=== PATIENT | female | born 1960 | race Caucasian/White ===

== ENCOUNTER 2023-11-09 18:55 | Inpatient (IN) | payer OTHER ==
--- NOTE | 2023-11-09 19:06 | ED ---
General Adult HPI - General Source: patient, family, RN notes reviewed Mode of arrival: wheelchair Limitations: no limitations <Estevan Bruce - Last Filed: 11/09/23 19:04> - History of Present Illness -: days(s) Location: neck, chest Severity scale (1-10): 4 Quality: aching Consistency: constant Improves with: none Worsens with: none <Rodrigo Toscano - Last Filed: 11/16/23 20:39> - General Stated complaint: Needs echograph Time Seen by Provider: 11/09/23 19:04 - History of Present Illness Initial comments: Quick note: Patient is a 62-year-old female presented to ER with a chief complaint of "fluid around her heart". Patient sent by medical provider for IV Lasix and admission. (Estevan Bruce) This is a 62-year-old female scented to the emergency room today for evaluation of shortness of breath patient was sent in for evaluation regarding findings of CHF. (Rodrigo Tsocano) - Related Data Home Medications Medication Instructions Recorded Confirmed ALPRAZolam [Xanax] 1 mg PO TID 11/09/23 11/09/23 Albuterol Inhaler [Ventolin Hfa 2 puff INHALATION RT-QID PRN 11/09/23 11/09/23 Inhaler] Atorvastatin [Lipitor] 80 mg PO HS 11/09/23 11/09/23 Ergocalciferol (Vitamin D2) 1,250 mcg PO SA 11/09/23 11/09/23 [Drisdol (50,000 Iu)] Furosemide [Lasix] 40 mg PO BID 11/09/23 11/09/23 Montelukast [Singulair] 10 mg PO DAILY 11/09/23 11/09/23 Ondansetron [Zofran] 4 mg PO Q12HR PRN 11/09/23 11/09/23 Spironolactone-Hctz 25-25Mg 2 tab PO DAILY 11/09/23 11/09/23 [Aldactazide 25-25 MG] allopurinoL [Zyloprim] 100 mg PO DAILY 11/09/23 11/09/23 amLODIPine [Norvasc] 10 mg PO DAILY 11/09/23 11/09/23 rOPINIRole HCL [Requip] 0.25 mg PO HS 11/09/23 11/09/23 metFORMIN HCL [Glucophage] 500 mg PO DAILY 11/10/23 11/10/23 Previous Rx's Medication Instructions Recorded Budesonide-Formot 160-4.5 Mcg 2 puff INHALATION RT-BID 30 Days 11/16/23 [Symbicort 160-4.5 Mcg Inhaler] #1 dispenser Cephalexin [Keflex] 500 mg PO Q8HR #30 cap 11/16/23 Ipratropium-Albuterol Nebulize 3 ml INHALATION RT-QID 30 Days 11/16/23 [Duoneb 0.5 mg-3 mg/3 ml Soln] #120 each Metoprolol Succinate (ER) [Toprol 25 mg PO DAILY #30 tab 11/16/23 XL] predniSONE 30 mg PO DAILY #7 tab 11/16/23 Allergies Allergy/AdvReac Type Severity Reaction Status Date / Time LESLIE Inhibitors Allergy Unknown Verified 11/09/23 19:35 Review of Systems ROS Other: All systems not noted in ROS Statement are negative. <Estevan Bruce - Last Filed: 11/09/23 19:04> ROS Other: All systems not noted in ROS Statement are negative. <Rodrigo Toscano - Last Filed: 11/16/23 20:39> ROS Statement: Those systems with pertinent positive or pertinent negative responses have been documented in the HPI. General Exam <Estevan Bruce - Last Filed: 11/09/23 19:04> General appearance: alert, in no apparent distress Head exam: Present: atraumatic, normocephalic, normal inspection Eye exam: Present: normal appearance, PERRL, EOMI. Absent: scleral icterus, conjunctival injection, periorbital swelling ENT exam: Present: normal exam, mucous membranes moist Neck exam: Present: normal inspection. Absent: tenderness, meningismus, lymphadenopathy Respiratory exam: Present: normal lung sounds bilaterally. Absent: respiratory distress, wheezes, rales, rhonchi, stridor Cardiovascular Exam: Present: regular rate, normal rhythm, normal heart sounds. Absent: systolic murmur, diastolic murmur, rubs, gallop, clicks GI/Abdominal exam: Present: soft, normal bowel sounds. Absent: distended, tenderness, guarding, rebound, rigid Extremities exam: Present: normal inspection, full ROM, normal capillary refill. Absent: tenderness, pedal edema, joint swelling, calf tenderness Back exam: Present: normal inspection Neurological exam: Present: alert, oriented X3, CN II-XII intact Psychiatric exam: Present: normal affect, normal mood Skin exam: Present: warm, dry, intact, normal color. Absent: rash <Rodrigo Toscano - Last Filed: 11/16/23 20:39> - General Exam Comments Initial Comments: Visual Physical Exam Vital signs reviewed General: Well-appearing, nontoxic, no acute distress. Head: Normocephalic, atraumatic Eyes: PERRLA, EOMI ENT: Airway patent Chest: Nonlabored breathing Skin: No visual rash, normal skin tone Neuro: Alert and oriented 3 Musculoskeletal: No gross abnormalities (Estevan Bruce) Course <Rodrigo Toscano - Last Filed: 11/16/23 20:39> Vital Signs 11/09/23 11/09/23 11/09/23 19:31 21:56 22:51 Temperature 98.2 F Pulse Rate 88 89 83 Pulse Rate [ Pulse Oximetery ] Respiratory 18 20 20 Rate Blood Pressure 116/81 120/82 100/82 Blood Pressure [Supine] O2 Sat by Pulse 94 L 91 L 96 Oximetry 11/10/23 00:32 Temperature 98.0 F Pulse Rate Pulse Rate [ 79 Pulse Oximetery ] Respiratory 20 Rate Blood Pressure Blood Pressure 100/58 [Supine] O2 Sat by Pulse 90 L Oximetry - Reevaluation(s) Reevaluation #1: 11/09/23 20:50 Medical records reviewed (Rodrigo Toscano) Reevaluation #2: 11/09/23 20:50 Patient symptoms unchanged (Rodrigo Toscano) Reevaluation #3: 11/09/23 20:50 Patient informed of results and questions answered (Rodrigo Toscano) Reevaluation #4: Was pt. sent in by a medical professional or institution (, PA, PICTURE [employer]AMER, urgent care, hospital, or fpc...) When possible be specific @ -no Did you speak to anyone other than the patient for history (EMS, parent, family, police, friend...)? What history was obtained from this source @ -no Did you review nursing and triage notes (agree or disagree)? Why? @ -agree Are old charts reviewed (outside hosp., previous admission, EMS record, old EKG, old radiological studies, urgent care reports/EKG's, fpc records)? Report findings @ -yes Differential Diagnosis (chest pain, altered mental status, abdominal pain women, abdominal pain men, vaginal bleeding, weakness, fever, dyspnea, syncope, h eadache, dizziness, GI bleed, back pain, seizure, CVA, palpatations, mental health, musculoskeletal)? @ -prior EKG interpreted by me (3pts min.). @ -yes X-rays interpreted by me (1pt min.). @ -yes postive for CHF CT interpreted by me (1pt min.). @ -no U/S interpreted by me (1pt. min.). @ -no What testing was considered but not performed or refused? (CT, X-rays, U/S, labs)? Why? @ -none What meds were considered but not given or refused? Why? @ -none Did you discuss the management of the patient with other professionals (professionals i.e. , PA, [employer], lab, RT, psych nurse, healthcare social worker, glue clamp operator, teacher, correctional officer lieutenant, supportive employment case manager)? Give summary @ -no Was smoking cessation discussed for >3mins.? @ -no Was critical care preformed (if so, how long)? @ -no Were there social determinants of health that impacted care today? How? (Homelessness, low income, unemployed, alcoholism, drug addiction, transportation, low edu. Level, literacy, decrease access to med. care, snf, rehab)? @ -none Was there de-escalation of care discussed even if they declined (Discuss DNR or withdrawal of care, Hospice)? DNR status @ -no What co-morbidities impacted this encounter? (DM, HTN, Smoking, COPD, CAD, Cancer, CVA, ARF, Chemo, Hep., AIDS, mental health diagnosis, sleep apnea, morbid obesity)? @ -none Was patient admitted / discharged? Hospital course, mention meds given and route, prescriptions, significant lab abnormalities, going to OR and other pertinent info. @ - 62 female to the ER for evaluation of significant CHF lower extremity edema. Patient having persistent shortness of breath here in the emergency department will admit for CHF, diuresis Admitted Undiagnosed new problem with uncertain prognosis? @ -no Drug Therapy requiring intensive monitoring for toxicity (Heparin, Nitro, Insulin, Cardizem)? @ -no Were any procedures done? @ -no Diagnosis/symptom? @ -CHF Acute, or Chronic, or Acute on Chronic? @ -Acute Uncomplicated (without systemic symptoms) or Complicated (systemic symptoms)? @ -Complicated Side effects of treatment? @ -no Exacerbation, Progression, or Severe Exacerbation? @ -exacerbation Poses a threat to life or bodily function? How? (Chest pain, USA, ND, pneumonia, PE, COPD, DKA, ARF, appy, cholecystitis, CVA, Diverticulitis, Homicidal, S uicidal, threat to staff... and all critical care pts) @ -yes w CHF (Rodrigo Toscano) Reevaluation #5: Differential Dyspnea: Coronary syndrome, arrhythmia, tamponade, asthma, COPD, pulmonary embolism, pneumonia, pneumothorax, pulmonary effusion, anaphylaxis, diabetic ketoacidosis, flailed chest, pulmonary contusion, diaphragmatic rupture, anemia, neuro muscular, this is not meant to be an all-inclusive list. (Rodrigo Toscano) - Consultations Consultation #1: Spoke with [facility] who agrees to admit this patient (Rodrigo Toscano) EKG Findings - EKG Comments: EKG Findings:: EKG is sinus 91 MS 167 QRS 118 QTc 429 - EKG Results: EKG: interpreted by ERMD <Rodrigo Toscano - Last Filed: 11/16/23 20:39> Medical Decision Making <Estevan Bruce - Last Filed: 11/09/23 19:04> - Lab Data Result diagrams: 11/14/23 07:38 11/14/23 07:38 - Radiology Data Radiology results: report reviewed (Chest x-ray positive for CHF), image reviewed <Rodrigo Toscano - Last Filed: 11/16/23 20:39> - Medical Decision Making I performed the quick note portion of this chart. Electronically signed by Estevan Bruce PA-C (Estevan Bruce) 62 female to the ER for evaluation of significant CHF lower extremity edema. Patient having persistent shortness of breath here in the emergency department will admit for CHF, diuresis (Rodrigo Toscano) - Lab Data Lab Results 11/09/23 11/09/23 11/09/23 Range/Units 19:54 19:54 19:54 WBC 7.1 (3.8-10.6) k/uL RBC 4.60 (3.80-5.40) m/uL Hgb 13.1 (11.4-16.0) gm/dL Hct 42.0 (34.0-46.0) % MCV 91.3 (80.0-100.0) fL MCH 28.5 (25.0-35.0) pg MCHC 31.2 (31.0-37.0) g/dL RDW 17.9 H (11.5-15.5) % Plt Count 214 (150-450) k/uL MPV 8.8 Hypochromasia Moderate Poikilocytosis Slight Anisocytosis Slight Sodium 138 (137-145) mmol/L Potassium 4.0 (3.5-5.1) mmol/L Chloride 97 L (98-107) mmol/L Carbon Dioxide 27 (22-30) mmol/L Anion Gap 14 mmol/L BUN 52 H (7-17) mg/dL Creatinine 2.01 H (0.52-1.04) mg/dL Est GFR (CKD-EPI)AfAm 30 (>60 ml/min/1.73 sqM) Est GFR (CKD-EPI)NonAf 26 (>60 ml/min/1.73 sqM) Glucose 98 (74-99) mg/dL Calcium 9.2 (8.4-10.2) mg/dL Total Bilirubin 2.2 H (0.2-1.3) mg/dL AST 41 H (14-36) U/L ALT 29 (4-34) U/L Alkaline Phosphatase 117 (38-126) U/L Troponin I <0.012 (0.000-0.034) ng/mL NT-Pro-B Natriuret Pep 78649 pg/mL Total Protein 7.6 (6.3-8.2) g/dL Albumin 4.0 (3.5-5.0) g/dL Disposition <Estevan Bruce - Last Filed: 11/09/23 19:04> Is patient prescribed a controlled substance at d/c from ED?: No Time of Disposition: 20:45 <Rodrigo Toscano - Last Filed: 11/16/23 20:39> Clinical Impression: CHF (congestive heart failure), Shortness of breath Disposition: ADMITTED IP TO THIS HOSP Condition: Fair
[2023-11-09 20:29] LABS: Anisocytosis Slight; HGB 13.1 gm/dL (11.4-16.0); Hypochromasia Moderate; MCH 28.5 pg (25.0-35.0); MCHC 31.2 g/dL (31.0-37.0); MCV 91.3 fL (80.0-100.0); Mean Platelet Volume 8.8; Platelet Count 214 k/uL (150-450); Poikilocytosis Slight; RDW 17.9 % (11.5-15.5); WBC 7.1 k/uL (3.8-10.6)
[2023-11-09 20:39] LABS: ALT 29 U/L (4-34); AST 41 U/L (14-36); African American GFR (CKD) 30 (>60 ml/min/1.73 sqM); Alkaline Phosphatase 117 U/L (38-126); Anion Gap 14 mmol/L; Blood Urea Nitrogen 52 mg/dL (7-17); Calcium 9.2 mg/dL (8.4-10.2); Carbon Dioxide 27 mmol/L (22-30); Chloride 97 mmol/L (98-107); Glucose 98 mg/dL (74-99); Non-African American GFR(CKD) 26 (>60 ml/min/1.73 sqM); Sodium 138 mmol/L (137-145); Total Bilirubin 2.2 mg/dL (0.2-1.3); Total Protein 7.6 g/dL (6.3-8.2)
[2023-11-09 20:47] LABS: NT-Pro-B-Type Natriuretic Pept 16000 pg/mL
--- NOTE | 2023-11-09 22:10 | XR ---
EXAMINATION: XR chest 1V portable DATE AND TIME: 11/09/2023 10:03 PM CLINICAL INDICATION: PHH; chf TECHNIQUE: AP upright portable COMPARISON: None FINDINGS/IMPRESSION: There is marked enlargement of the cardiac silhouette. There is partial silhouetting of the diaphragms with silhouetting of the bilateral lower lung zone pu lmonary vasculature by a fine reticular pattern of increased density with areas of coalescence, consi stent with interstitial/alveolar phase pulmonary edema. No pneumothorax or other abnormal gas collection. No acute skeletal or soft tissue findings.
[2023-11-09] MEDS: FUROSEMIDE 10 MG/ML 4 ML VIAL IV STA (22:50)
[2023-11-09] MEDS: FUROSEMIDE 10 MG/ML 4 ML VIAL IV SCH (23:52)
[2023-11-10] MEDS ORDERED: ONDANSETRON 4 MG TAB PO PRN (00:44)
[2023-11-10] MEDS ORDERED: ALBUTEROL NEBULIZED 2.5 MG/3 ML INHALATION PRN (00:44)
[2023-11-10] MEDS: ATORVASTATIN 80 MG TAB PO SCH (01:45)
[2023-11-10] MEDS: ALPRAZolam 1 MG TAB PO PRN (01:45)
[2023-11-10] MEDS: SPIRONOLACTONE-HCTZ 25-25MG 1 EACH TAB PO SCH (08:20)
[2023-11-10] MEDS: HEPARIN SODIUM,PORCINE 5,000 UNIT/ML 1 ML VIAL SQ SCH (08:21)
[2023-11-10] MEDS: MONTELUKAST 10 MG TAB PO SCH (08:21)
[2023-11-10] MEDS: amLODIPine 10 MG TAB PO SCH (08:21)
[2023-11-10] MEDS: allopurinoL 100 MG TAB PO SCH (08:21)
[2023-11-10] MEDS: FAMOTIDINE 20 MG/2 ML VIAL IV SCH (08:21)
[2023-11-10] MEDS: metFORMIN 500 MG TAB PO SCH (09:19)
--- NOTE | 2023-11-10 09:32 | P.CRDCN ---
History of Present Illness Consult date: 11/10/23 Consult reason: congestive heart failure History of present illness: History of present illness: This is a 62-year-old female with past medical history of hypertension, diabetes mellitus type 2, COPD, tobacco use and dependence. Patient complains of shortness of breath and swelling that been going on for the past 3 weeks. She thought she could treated herself with diuretics at home but the swelling did not seem to improve. She does have history of having oxygen at home but she states she recently sent it back. She does have a nebulizer which she is not using. She states that Dr. Roche sent her here for an echocardiogram. 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 Patient is status post IV Lasix 40 mg once and continued on 40 mg every 12 hours. EKG sinus rhythm Chest x-ray: Marked enlargement of the cardiac silhouette. Interstitial/alveolar phase pulmonary edema. WBC 7.1, hemoglobin 13.1, platelet count 214. BUN 52, creatinine 2.01. Troponin negative x 3. Total bilirubin 2.2, AST 41, ALT 29, alkaline phosphatase 117. proBNP 16,000. Sodium 138, potassium 4.0, chloride 97, CO2 27. Home cardiac medications: Amlodipine 10 mg daily, atorvastatin 80 mg at bedtime, Lasix 40 mg twice daily, spironolactone/hydrochlorothiazide 25-25 mg 2 tablets daily. Review Of Systems: At the time of my exam: CONSTITUTIONAL: Denies fever or chills. HEENT: Denies blurred vision, vision changes, or eye pain. Denies hemoptysis CARDIOVASCULAR: Denies chest pain. Denies orthopnea. Denies PND. Denies palpitations. + edema in abdomen and lower extremities RESPIRATORY: + shortness of breath. GASTROINTESTINAL: Denies abdominal pain. Denies nausea or vomiting. HEMATOLOGIC: Denies bleeding disorders. GENITOURINARY: Denies any blood in urine. SKIN: Denies pruitis. Denies rash. Physical examination: Gen: This is an obese 62-year-old in no acute distress VS: reviewed HEENT: Head is atraumatic, normocephalic. Pupils equal, round. Sclerae is anicteric. NECK: Supple. No JVD. LUNGS: Diffuse wheezing bilateral. No intercostal retractions. HEART: Regular rate and rhythm. No murmur. ABDOMEN: Soft positive ascites. EXTREMITIES: Bilateral lower extremity edema. No calf tenderness. NEUROLOGICAL: Patient is awake, alert and oriented x3. Assessment: Acute on chronic heart failure, unknown EF COPD exacerbation Ascites Hypertension Diabetes mellitus type 2 COPD Tobacco use and dependence Plan: Resume patient's home cardiac medications Continue IV Lasix 40 mg increase frequency to every 8 hours Monitor DEJA, daily weights, electrolytes and renal function Obtain 2-D echocardiogram and Doppler study to assess cardiac structure and function Add consult for pulmonary medicine for COPD exacerbation Further recommendations to follow based upon clinical course Thank you kindly for this consultation. Nurse practitioner note has been reviewed, I agree with documented findings and plan of care. Patient was seen and examined. Past Medical History Past Medical History: COPD, Diabetes Mellitus, Hypertension History of Any Multi-Drug Resistant Organisms: None Reported Past Surgical History: No Surgical Hx Reported Past Psychological History: No Psychological Hx Reported Smoking Status: Current every day smoker Past Alcohol Use History: None Reported Past Drug Use History: None Reported Medications and Allergies Home Medications Medication Instructions Recorded Confirmed Type ALPRAZolam [Xanax] 1 mg PO TID 11/09/23 11/09/23 History Albuterol Inhaler [Ventolin Hfa 2 puff INHALATION RT-QID PRN 11/09/23 11/09/23 History Inhaler] Atorvastatin [Lipitor] 80 mg PO HS 11/09/23 11/09/23 History Ergocalciferol (Vitamin D2) 1,250 mcg PO SA 11/09/23 11/09/23 History [Drisdol (50,000 Iu)] Furosemide [Lasix] 40 mg PO BID 11/09/23 11/09/23 History Montelukast [Singulair] 10 mg PO DAILY 11/09/23 11/09/23 History Ondansetron [Zofran] 4 mg PO Q12HR PRN 11/09/23 11/09/23 History Spironolactone-Hctz 25-25Mg 2 tab PO DAILY 11/09/23 11/09/23 History [Aldactazide 25-25 MG] allopurinoL [Zyloprim] 100 mg PO DAILY 11/09/23 11/09/23 History amLODIPine [Norvasc] 10 mg PO DAILY 11/09/23 11/09/23 History rOPINIRole HCL [Requip] 0.25 mg PO HS 11/09/23 11/09/23 History metFORMIN HCL [Glucophage] 500 mg PO DAILY 11/10/23 11/10/23 History Allergies Allergy/AdvReac Type Severity Reaction Status Date / Time LESLIE Inhibitors Allergy Unknown Verified 11/09/23 19:35 Physical Exam Vitals: Vital Signs Temp Pulse Pulse Resp BP BP Pulse Ox 11/10/23 01:47 97.7 F 89 21 105/73 94 L 11/10/23 00:32 98.0 F 79 20 100/58 90 L 11/09/23 22:51 83 20 100/82 96 11/09/23 21:56 89 20 120/82 91 L 11/09/23 19:31 98.2 F 88 18 116/81 94 L Intake and Output 11/09/23 11/10/23 11/10/23 22:59 06:59 14:59 Intake Total 480 Output Total 250 Balance 230 Intake: Oral 480 Output: Urine 250 Other: Weight 86.183 kg 86.2 kg Results 11/09/23 19:54 11/09/23 19:54 Cardiac Enzymes 11/09/23 11/09/23 11/09/23 Range/Units 19:54 19:54 23:56 AST 41 H (14-36) U/L Troponin I <0.012 <0.012 (0.000-0.034) ng/mL 11/10/23 Range/Units 02:49 AST (14-36) U/L Troponin I <0.012 (0.000-0.034) ng/mL CBC 11/09/23 Range/Units 19:54 WBC 7.1 (3.8-10.6) k/uL RBC 4.60 (3.80-5.40) m/uL Hgb 13.1 (11.4-16.0) gm/dL Hct 42.0 (34.0-46.0) % Plt Count 214 (150-450) k/uL Comprehensive Metabolic Panel 11/09/23 Range/Units 19:54 Sodium 138 (137-145) mmol/L Potassium 4.0 (3.5-5.1) mmol/L Chloride 97 L (98-107) mmol/L Carbon Dioxide 27 (22-30) mmol/L BUN 52 H (7-17) mg/dL Creatinine 2.01 H (0.52-1.04) mg/dL Glucose 98 (74-99) mg/dL Calcium 9.2 (8.4-10.2) mg/dL AST 41 H (14-36) U/L ALT 29 (4-34) U/L Alkaline Phosphatase 117 (38-126) U/L Total Protein 7.6 (6.3-8.2) g/dL Albumin 4.0 (3.5-5.0) g/dL Current Medications Generic Name Dose Route Start Last Admin Trade Name Freq PRN Reason Stop Dose Admin Albuterol Sulfate 2.5 mg 11/10/23 00:44 Albuterol Nebulized 2.5 Mg/3 Ml INHALATION RT-QID PRN Shortness Of Breath Allopurinol 100 mg 11/10/23 09:00 Allopurinol 100 Mg Tab PO DAILY [facility]PILLO Alprazolam 1 mg 11/10/23 00:44 11/10/23 01:45 Alprazolam 1 Mg Tab PO 1 mg Q6H PRN Administration Anxiety Amlodipine Besylate 10 mg 11/10/23 09:00 Amlodipine 10 Mg Tab PO DAILY [facility] Atorvastatin Calcium 80 mg 11/10/23 01:00 11/10/23 01:45 Atorvastatin 80 Mg Tab PO 80 mg HS [facility] Administration Ergocalciferol 1,250 mcg 11/11/23 09:00 Ergocalciferol 1,250 Mcg (50,000 Iu) Capsule PO SA [facility] Furosemide 40 mg 11/09/23 21:00 11/09/23 23:52 Furosemide 10 Mg/Ml 4 Ml Vial IV Not Given Q12H [facility] HCTZ/Spironolactone 2 each 11/10/23 09:00 Spironolactone-Hctz 25-25mg 1 Each Tab PO DAILY [facility] Montelukast Sodium 10 mg 11/10/23 09:00 Montelukast 10 Mg Tab PO DAILY [facility] Non-Formulary Medication 1 dose 11/10/23 09:00 Metformin (Unknown Strength) PO DAILY [facility] Ondansetron HCl 4 mg 11/10/23 00:44 Ondansetron 4 Mg Tab PO Q12HR PRN Nausea Ropinirole HCl 0.25 mg 11/10/23 01:00 11/10/23 01:45 Ropinirole Hcl 0.25 Mg Tab PO 0.25 mg HS [facility] Administration Intake and Output 11/09/23 11/10/23 11/10/23 22:59 06:59 14:59 Intake Total 480 Output Total 250 Balance 230 Intake: Oral 480 Output: Urine 250 Other: Weight 86.183 kg 86.2 kg 11/09/23 19:54 11/09/23 19:54
[2023-11-10] MEDS ORDERED: DEXTROSE 50% SYRINGE 50 ML IVP PRN ×2 (09:38)
[2023-11-10 11:45] LABS: Glucose,Whole Blood 120 mg/dL (70-110)
[2023-11-10] MEDS: INSULIN ASPART (NovoLOG) 100 UNIT/ML VIAL SQ SCH (11:46)
--- NOTE | 2023-11-10 14:14 | P.HPIM ---
History of Present Illness H&P Date: 11/10/23 This is a pleasant 62-year-old female medical history significant for COPD, diabetes mellitus, hypertension. Patient is a daily smoker states that she quit about 5 days ago. Patient comes into the hospital after 3-week complaint of lower extremity edema she was seen by her PCP Dr. Roche who sent her into the hospital for further testing and evaluation. Patient has been using diuretics at home without improvement in her symptoms. She is denying shortness of breath, denying chest pain. Patient was noted to be hypoxic on admission with an oxygenation of 91%. She was started on nasal cannula patient does state that she has worn oxygen in the past due to her COPD however she has not been using it because she wanted to continue smoking. Patient had a chest x-ray done on admission showing no acute skeletal or soft tissue findings. There is concern for pulmonary edema. Her troponin level was negative x 3 however her proBNP was elevated at 16,000. Creatinine is also elevated at 2.01 with no other lab work available for comparison. Patient had an echocardiogram done yesterday November 08 ordered by her PCP showing severe LV systolic dysfunction with diffuse global hypokinesis EF is noted to be 20%. There is moderate mitral vegetation and moderate tricuspid regurgitation. She also had an abdominal pelvis CT done for abdominal distention revealing prominent anasarca. Patient has been started on IV Lasix, she is admitted to the hospital under medicine with a consult placed to cardiology. REVIEW OF SYSTEMS: CONSTITUTIONAL: No fever, no malaise, no fatigue. HEENT: No recent visual problems or hearing problems. Denied any sore throat. CARDIOVASCULAR: No chest pain, orthopnea, PND, no palpitations, no syncope. PULMONARY: No shortness of breath, no cough, no hemoptysis. GASTROINTESTINAL: No diarrhea, no nausea, no vomiting, no abdominal pain. NEUROLOGICAL: No headaches, no weakness, no numbness. HEMATOLOGICAL: Denies any bleeding or petechiae. GENITOURINARY: Denies any burning micturition, frequency, or urgency. MUSCULOSKELETAL/RHEUMATOLOGICAL: Denies any joint pain, swelling, or any muscle pain. Reports leg swelling and difficulty with ambulation. ENDOCRINE: Denies any polyuria or polydipsia. The rest of the 14-point review of systems is negative. PHYSICAL EXAMINATION: GENERAL: The patient is alert and oriented x3, not in any acute distress. Well developed, well nourished. HEENT: Pupils are round and equally reacting to light. EOMI. No scleral icterus. No conjunctival pallor. Normocephalic, atraumatic. No pharyngeal erythema. No thyromegaly. CARDIOVASCULAR: S1 and S2 present. No murmurs, rubs, or gallops. PULMONARY: Chest is clear to auscultation, no wheezing or crackles. ABDOMEN: Soft, nontender, nondistended, normoactive bowel sounds. No palpable organomegaly. MUSCULOSKELETAL: No joint swelling or deformity. EXTREMITIES: No cyanosis, clubbing. Patient has pitting lower extremity edema. NEUROLOGICAL: Gross neurological examination did not reveal any focal deficits. SKIN: No rashes. Assessment and plan Acute systolic heart failure patient has been started on IV Lasix increased to every 8 hours recommend strict intake and output monitoring and daily weights Acute hypoxic respiratory failure secondary to above continue on oxygen support nasal cannula at 4 L and titrate as tolerated Acute kidney injury possibly cardiorenal syndrome will repeat labs in the morning. History of COPD with no acute exacerbation Abdominal ascites secondary to vascular congestion History of diabetes mellitus controlled patient is currently on sliding scale insulin with Accu-Cheks ACH S Chronic nicotine use GI prophylaxis DVT prophylaxis Patient will be evaluated by cardiology and pulmonary continue on IV Lasix with strict intake and output monitoring. She will be started on DuoNebs scheduled and as needed. Repeat BMP in the a.m. The impression and plan of care has been dictated by Ginger Lawrence Nurse Practitioner as directed. Dr. Uma MD I have performed a history and physical examination and medical decision making of this patient, discussed the same with the dictator, and agree with the dictators assessment and plan as written, documented as a scribe. Based on total visit time, I have performed more than 50% of this visit. Past Medical History Past Medical History: COPD, Diabetes Mellitus, Hypertension History of Any Multi-Drug Resistant Organisms: None Reported Past Surgical History: No Surgical Hx Reported Past Psychological History: No Psychological Hx Reported Smoking Status: Current every day smoker Past Alcohol Use History: None Reported Past Drug Use History: None Reported Medications and Allergies Home Medications Medication Instructions Recorded Confirmed Type ALPRAZolam [Xanax] 1 mg PO TID 11/09/23 11/09/23 History Albuterol Inhaler [Ventolin Hfa 2 puff INHALATION RT-QID PRN 11/09/23 11/09/23 History Inhaler] Atorvastatin [Lipitor] 80 mg PO HS 11/09/23 11/09/23 History Ergocalciferol (Vitamin D2) 1,250 mcg PO SA 11/09/23 11/09/23 History [Drisdol (50,000 Iu)] Furosemide [Lasix] 40 mg PO BID 11/09/23 11/09/23 History Montelukast [Singulair] 10 mg PO DAILY 11/09/23 11/09/23 History Ondansetron [Zofran] 4 mg PO Q12HR PRN 11/09/23 11/09/23 History Spironolactone-Hctz 25-25Mg 2 tab PO DAILY 11/09/23 11/09/23 History [Aldactazide 25-25 MG] allopurinoL [Zyloprim] 100 mg PO DAILY 11/09/23 11/09/23 History amLODIPine [Norvasc] 10 mg PO DAILY 11/09/23 11/09/23 History rOPINIRole HCL [Requip] 0.25 mg PO HS 11/09/23 11/09/23 History metFORMIN HCL [Glucophage] 500 mg PO DAILY 11/10/23 11/10/23 History Allergies Allergy/AdvReac Type Severity Reaction Status Date / Time LESLIE Inhibitors Allergy Unknown Verified 11/09/23 19:35 Physical Exam Vitals: Vital Signs Temp Pulse Pulse Resp BP BP Pulse Ox 11/10/23 07:11 97.2 F L 87 21 113/72 91 L 11/10/23 01:47 97.7 F 89 21 105/73 94 L 11/10/23 00:32 98.0 F 79 20 100/58 90 L 11/09/23 22:51 83 20 100/82 96 11/09/23 21:56 89 20 120/82 91 L 11/09/23 19:31 98.2 F 88 18 116/81 94 L Intake and Output 11/09/23 11/10/23 11/10/23 22:59 06:59 14:59 Intake Total 480 Output Total 250 Balance 230 Intake: Oral 480 Output: Urine 250 Other: Weight 86.183 kg 86.2 kg Results CBC & Chem 7: 11/09/23 19:54 11/09/23 19:54 Labs: Abnormal Lab Results - Last 24 Hours (Table) 11/09/23 11/09/23 Range/Units 19:54 19:54 RDW 17.9 H (11.5-15.5) % Chloride 97 L (98-107) mmol/L BUN 52 H (7-17) mg/dL Creatinine 2.01 H (0.52-1.04) mg/dL Total Bilirubin 2.2 H (0.2-1.3) mg/dL AST 41 H (14-36) U/L Thrombosis Risk Factor Assmnt - Choose All That Apply Any of the Below Risk Factors Present?: Yes Each Risk Factor Represents 2 Points: Age 61-74 years Thrombosis Risk Factor Assessment Total Risk Factor Score: 2 Thrombosis Risk Factor Assessment Level: Low Risk Assessment and Plan Time with Patient: Less than 30
[2023-11-10 15:36] LABS: INR 1.1 (<1.2); Partial Thromboplastin Time 25.1 sec (22.0-30.0); Prothrombin Time 11.9 sec (10.0-12.5)
[2023-11-10 15:40] VITALS: BMI 35.9
[2023-11-10] MEDS: IPRATROPIUM-ALBUTEROL 3 ML NEB INHALATION SCH (15:51)
[2023-11-10] MEDS: FUROSEMIDE 10 MG/ML 4 ML VIAL IV SCH (15:54)
--- NOTE | 2023-11-10 15:55 | P.CNPUL ---
History of Present Illness Consult date: 11/10/23 Requesting physician: Jayjay Richards Reason for consult: dyspnea, COPD, hypoxemia Chief complaint: Shortness of breath History of present illness: This is a pleasant 62-year-old female patient with a 50+ year history of smoking, hypertension, hyperlipidemia, gout. She was recently found to have s everely impaired left ventricular systolic function with an ejection fraction of 20%. She had developed increasing lower extremity edema, increasing abdominal fullness over the past 2 weeks. She was directed here to the emergency room yesterday. CT scan of the abdomen pelvis revealed prominent anasarca. Is also noted right pleural effusion and passive right lung base atelectasis. Scant left pleural effusion. This x-ray reveals evidence of pulmonary edema. White count 7.1. Hemoglobin 13.1. Platelets 214. Sodium 138. Potassium 4.0. Bicarb 27. BUN 52. Creatinine 2.01. Troponins are negative x 3. proBNP 16,000. She is seen today in consultation on the selective care unit. She is currently awake and alert in no acute distress. She is dyspneic with conversation. Dyspneic with minimal exertion. Maintaining O2 saturation in the low 90s on 4 L/min per nasal cannula. Afebrile. Hemodynamically stable. Review of Systems REVIEW OF SYSTEMS: CONSTITUTIONAL: Positive for significant weight gain. EYES: Denies change in vision. EARS, NOSE, MOUTH, THROAT: Denies headaches, denies sore throat. CARDIOVASCULAR: Denies chest pain, palpitations or syncopal episodes. RESPIRATORY: Positive for shortness of breath, cough, congestion no hemoptysis. GASTROINTESTINAL: Positive for increased abdominal distention. GENITOURINARY: Denies hematuria, denies infections. MUSKULOSKELETAL: Positive for bilateral lower extremity swelling. INTEGUMENTARY: Denies rash, denies eczema. NEUROLOGICAL: Denies recent memory loss, no recent seizure activity. PSYCHIATRIC: Denies anxiety, denies depression. HEMATOLOGIC/LYMPHATIC: Denies anemia, denies enlarged lymph nodes. Past Medical History Past Medical History: COPD, Diabetes Mellitus, Hypertension History of Any Multi-Drug Resistant Organisms: None Reported Past Surgical History: No Surgical Hx Reported Past Psychological History: No Psychological Hx Reported Smoking Status: Current every day smoker Past Alcohol Use History: None Reported Past Drug Use History: None Reported Medications and Allergies Home Medications Medication Instructions Recorded Confirmed Type ALPRAZolam [Xanax] 1 mg PO TID 11/09/23 11/09/23 History Albuterol Inhaler [Ventolin Hfa 2 puff INHALATION RT-QID PRN 11/09/23 11/09/23 History Inhaler] Atorvastatin [Lipitor] 80 mg PO HS 11/09/23 11/09/23 History Ergocalciferol (Vitamin D2) 1,250 mcg PO SA 11/09/23 11/09/23 History [Drisdol (50,000 Iu)] Furosemide [Lasix] 40 mg PO BID 11/09/23 11/09/23 History Montelukast [Singulair] 10 mg PO DAILY 11/09/23 11/09/23 History Ondansetron [Zofran] 4 mg PO Q12HR PRN 11/09/23 11/09/23 History Spironolactone-Hctz 25-25Mg 2 tab PO DAILY 11/09/23 11/09/23 History [Aldactazide 25-25 MG] allopurinoL [Zyloprim] 100 mg PO DAILY 11/09/23 11/09/23 History amLODIPine [Norvasc] 10 mg PO DAILY 11/09/23 11/09/23 History rOPINIRole HCL [Requip] 0.25 mg PO HS 11/09/23 11/09/23 History metFORMIN HCL [Glucophage] 500 mg PO DAILY 11/10/23 11/10/23 History Allergies Allergy/AdvReac Type Severity Reaction Status Date / Time LESLIE Inhibitors Allergy Unknown Verified 11/09/23 19:35 Physical Exam Vitals: Vital Signs Temp Pulse Pulse Resp BP BP Pulse Ox 11/10/23 13:35 97.8 F 94 19 102/68 93 L 11/10/23 07:11 97.2 F L 87 21 113/72 91 L 11/10/23 01:47 97.7 F 89 21 105/73 94 L 11/10/23 00:32 98.0 F 79 20 100/58 90 L 11/09/23 22:51 83 20 100/82 96 11/09/23 21:56 89 20 120/82 91 L 11/09/23 19:31 98.2 F 88 18 116/81 94 L Intake and Output 11/10/23 11/10/23 11/10/23 06:59 14:59 22:59 Intake Total 480 118 Output Total 250 Balance 230 118 Intake: Oral 480 118 Output: Urine 250 Other: Voiding Method Toilet Incontinent Weight 86.2 kg 86.2 kg GENERAL EXAM: Alert, pleasant 62-year-old female, on 4 L nasal cannula, fairly comfortable in no apparent distress. HEAD: Normocephalic. EYES: Normal reaction of pupils, equal size. NOSE: Clear with pink turbinates. THROAT: Edentulous. No erythema or exudates. NECK: No masses, no JVD. CHEST: No chest wall deformity. LUNGS: Equal air entry with Eckels in the bilateral bases right greater than left, end expiratory wheeze, diminished. CVS: S1 and S2 normal with no audible murmur, regular rhythm. ABDOMEN: Positive fluid wave. No hepatosplenomegaly, normal bowel sounds, no guarding or rigidity. SPINE: No scoliosis or deformity SKIN: No rashes CENTRAL NERVOUS SYSTEM: No focal deficits, tone is normal in all 4 extremities. EXTREMITIES: There is 2+ peripheral edema. Changes of chronic venous stasis. No clubbing, no cyanosis. Peripheral pulses are intact. Results - Laboratory Findings CBC and BMP: 11/09/23 19:54 11/09/23 19:54 PT/INR, D-dimer PT 11.9 sec (10.0-12.5) 11/10/23 14:52 INR 1.1 (<1.2) 11/10/23 14:52 Abnormal lab findings: Abnormal Labs 11/09/23 11/09/23 11/10/23 19:54 19:54 11:43 RDW 17.9 H Chloride 97 L BUN 52 H Creatinine 2.01 H POC Glucose (mg/dL) 120 H Total Bilirubin 2.2 H AST 41 H - Diagnostic Findings Chest x-ray: image reviewed Assessment and Plan Assessment: Acute hypoxemic respiratory failure secondary to an acute exacerbation of systolic congestive heart failure in a patient found to have impaired left ventricular systolic function with ejection fraction of 20% Generalized anasarca Acute exacerbation of chronic obstructive pulmonary disease Chronic and ongoing tobacco dependence greater than 45 years Diabetes mellitus Hyperlipidemia History of gout Plan: The patient was seen and evaluated Echocardiogram, chest x-ray, labs and medications reviewed Initiated on Lasix 40 mg IV every 8 hours Initiate DuoNeb inhalations, Symbicort, Singulair, Solu Medrol Titrate the FiO2 as tolerated Educated regarding the importance of complete smoking cessation NicoDerm patch will be offered We will continue to follow and make further recommendations based on her clinical status I have personally seen and examined the patient, performed the documentation and the assessment and plan as written. Number of minutes spent on the visit: 20.
[2023-11-10 16:38] LABS: Glucose,Whole Blood 150 mg/dL (70-110)
[2023-11-10] MEDS: methylPREDNISolone SOD SUCCI 40 MG/ML 1 ML VIAL IV SCH (16:59)
[2023-11-10] MEDS: SYMBICORT 160-4.5 MCG INHALER INHALATION SCH (19:50)
[2023-11-10 20:12] LABS: Glucose,Whole Blood 144 mg/dL (70-110)
[2023-11-11 05:21] LABS: Glucose,Whole Blood 184 mg/dL (70-110)
[2023-11-11 08:27] LABS: African American GFR (CKD) 33 (>60 ml/min/1.73 sqM); Anion Gap 12 mmol/L; Blood Urea Nitrogen 48 mg/dL (7-17); Calcium 9.4 mg/dL (8.4-10.2); Carbon Dioxide 32 mmol/L (22-30); Chloride 96 mmol/L (98-107); Glucose 152 mg/dL (74-99); Non-African American GFR(CKD) 29 (>60 ml/min/1.73 sqM); Potassium 4.1 mmol/L (3.5-5.1); Sodium 140 mmol/L (137-145)
[2023-11-11] MEDS: FAMOTIDINE 20 MG TAB PO SCH (08:49)
[2023-11-11] MEDS: ERGOCALCIFEROL 1,250 MCG (50,000 IU) CAPSULE PO SCH (08:52)
[2023-11-11 11:28] LABS: Glucose,Whole Blood 184 mg/dL (70-110)
[2023-11-11] MEDS: CEPHALEXIN 500 MG CAP PO SCH ×2 (11:59→16:55)
--- NOTE | 2023-11-11 13:49 | P.PN ---
Subjective Progress Note Date: 11/11/23 Principal diagnosis: Acute hypoxic respiratory failure secondary to acute systolic congestive heart failure and acute exacerbation of COPD This is a pleasant 62-year-old female patient with a 50+ year history of smoking, hypertension, hyperlipidemia, gout. She was recently found to have severely impaired left ventricular systolic function with an ejection fraction of 20%. She had developed increasing lower extremity edema, increasing abdominal fullness over the past 2 weeks. She was directed here to the emergency room yesterday. CT scan of the abdomen pelvis revealed prominent anasarca. Is also noted right pleural effusion and passive right lung base atelectasis. Scant left pleural effusion. This x-ray reveals evidence of pulmonary edema. White count 7.1. Hemoglobin 13.1. Platelets 214. Sodium 138. Potassium 4.0. Bicarb 27. BUN 52. Creatinine 2.01. Troponins are negative x 3. proBNP 16,000. She is seen today in consultation on the selective care unit. She is currently awake and alert in no acute distress. She is dyspneic with conversation. Dyspneic with minimal exertion. Maintaining O2 saturation in the low 90s on 4 L/min per nasal cannula. Afebrile. Hemodynamically stable. Patient was reevaluated today on 11/11/2023, patient is feeling better, breathing a bit easier, less cough less wheezing less shortness of breath, nonetheless con tinues to have scattered rhonchi and wheezes on physical examination. Remains on 5 L nasal cannula, O2 sats 95% basic metabolic profile is normal today, BUN is 48 creatinine 1.82 improved compared to yesterday's creatinine of 2.01 Objective - Vital Signs Vital signs: Vital Signs Temp 98.2 F 11/11/23 11:37 Pulse 99 11/11/23 11:37 Resp 18 11/11/23 11:37 BP 128/89 11/11/23 11:37 Pulse Ox 95 11/11/23 11:37 FiO2 Intake & Output 11/10/23 11/11/23 11/11/23 18:59 06:59 18:59 Intake Total 228 118 Output Total 300 600 600 Balance -72 -604 -600 Weight 86.2 kg 99.6 kg Intake: Oral 228 118 Output: Urine 300 600 600 Other: Voiding Method Toilet Toilet Toilet Incontinent Incontinent Incontinent External Catheter External Catheter # Bowel Movements 1 - Exam GENERAL EXAM: Alert, pleasant 62-year-old female, remains on 5 L nasal cannula HEAD: Normocephalic. EYES: Normal reaction of pupils, equal size. NOSE: Clear with pink turbinates. THROAT: Edentulous. No erythema or exudates. NECK: No masses, no JVD. CHEST: No chest wall deformity. LUNGS: Scattered wheezing on forced expiratory maneuver noted bilaterally. CVS: S1 and S2 normal with no audible murmur, regular rhythm. ABDOMEN: Positive fluid wave. No hepatosplenomegaly, normal bowel sounds, no guarding or rigidity. SPINE: No scoliosis or deformity SKIN: No rashes CENTRAL NERVOUS SYSTEM: No focal deficits, tone is normal in all 4 extremities. EXTREMITIES: 2+ bipedal edema - Labs CBC & Chem 7: 11/09/23 19:54 11/11/23 07:39 Labs: Abnormal Lab Results - Last 24 Hours (Table) 11/10/23 11/10/23 11/10/23 Range/Units 14:52 16:36 20:11 Chloride (98-107) mmol/L Carbon Dioxide (22-30) mmol/L BUN (7-17) mg/dL Creatinine (0.52-1.04) mg/dL Glucose (74-99) mg/dL POC Glucose (mg/dL) 150 H 144 H (70-110) mg/dL Procalcitonin 0.20 H (0.02-0.09) ng/mL 11/11/23 11/11/23 11/11/23 Range/Units 05:20 07:39 11:27 Chloride 96 L (98-107) mmol/L Carbon Dioxide 32 H (22-30) mmol/L BUN 48 H (7-17) mg/dL Creatinine 1.82 H (0.52-1.04) mg/dL Glucose 152 H (74-99) mg/dL POC Glucose (mg/dL) 184 H 184 H (70-110) mg/dL Procalcitonin (0.02-0.09) ng/mL Assessment and Plan Assessment: Acute hypoxic respiratory failure Acute systolic congestive heart failure ejection fraction of 20% Acute exacerbation of COPD Anasarca Tobacco dependence syndrome, [id number] smoking history Type 2 diabetes History of gout Dyslipidemia Recommendation: Continue diuretics Continue bronchodilators Counseled regarding smoking cessation GI DVT prophylaxis Continue to monitor daily labs electrolytes and renal profile [place] chest x-ray in the next 24 hours Will continue to follow Time with Patient: Less than 30
--- NOTE | 2023-11-11 15:12 | P.PN ---
Subjective Progress Note Date: 11/11/23 This is a pleasant 62-year-old female medical history significant for COPD, diabetes mellitus, hypertension. Patient is a daily smoker states that she quit about 5 days ago. Patient comes into the hospital after 3-week complaint of lower extremity edema she was seen by her PCP Dr. Roche who sent her into the hospital for further testing and evaluation. Patient has been using diuretics at home without improvement in her symptoms. She is denying shortness of breath, denying chest pain. Patient was noted to be hypoxic on admission with an oxygenation of 91%. She was started on nasal cannula patient does state that she has worn oxygen in the past due to her COPD however she has not been using i t because she wanted to continue smoking. Patient had a chest x-ray done on admission showing no acute skeletal or soft tissue findings. There is concern for pulmonary edema. Her troponin level was negative x 3 however her proBNP was elevated at 16,000. Creatinine is also elevated at 2.01 with no other lab work available for comparison. Patient had an echocardiogram done yesterday November 08 ordered by her PCP showing severe LV systolic dysfunction with diffuse global hypokinesis EF is noted to be 20%. There is moderate mitral vegetation and moderate tricuspid regurgitation. She also had an abdominal pelvis CT done for abdominal distention revealing prominent anasarca. Patient has been started on IV Lasix, she is admitted to the hospital under medicine with a consult placed to cardiology. 11/11/2023 Patient is seen in follow-up on the medical floor. She continues on IV Lasix every 8 hours with a urine output of 1272 mL in the last 24 hours. Creatinine slowly improving and is down to 1.82 today. Blood glucose is elevated in the 180s. Hemoglobin A1c of 6.0. Maintained on nasal cannula oxygen support at 5 L with a saturation of 95% her lung sounds are clearing today and likely this can be weaned. Patient was noted to have features of cellulitis to the left lower extremity and has been started on oral Keflex. Lower extremities are edematous and weeping. Review of Systems Constitutional: Denied any fatigue denied any fever. Cardio vascular: denied any chest pain, palpitations Gastrointestinal: denied any nausea, vomiting, diarrhea Pulmonary: Denied any shortness of breath cough Neurologic denied any new focal deficits All inpatient medications were reviewed and appropriate changes in these medications as dictated in the interval history and assessment and plan. PHYSICAL EXAMINATION: GENERAL: The patient is alert and oriented x3, not in any acute distress. Well developed, well nourished. HEENT: Pupils are round and equally reacting to light. EOMI. No scleral icterus. No conjunctival pallor. Normocephalic, atraumatic. No pharyngeal erythema. No thyromegaly. CARDIOVASCULAR: S1 and S2 present. No murmurs, rubs, or gallops. PULMONARY: Bibasilar Crackles. ABDOMEN: Soft, nontender, nondistended, normoactive bowel sounds. No palpable organomegaly. MUSCULOSKELETAL: No joint swelling or deformity. EXTREMITIES: No cyanosis, clubbing. Patient has pitting lower extremity edema. NEUROLOGICAL: Gross neurological examination did not reveal any focal deficits. SKIN: No rashes. Assessment and plan Acute systolic heart failure patient has been started on IV Lasix increased to every 8 hours recommend strict intake and output monitoring and daily weights Acute hypoxic respiratory failure secondary to above continue on oxygen support nasal cannula at 4 L and titrate as tolerated Acute kidney injury possibly cardiorenal syndrome; Creatinine improving Left lower extremity cellulitis, patient has been started on oral keflex would recommend wrapping LE in Kerlex and Wang bandages bilaterally. History of COPD with no acute exacerbation Abdominal ascites secondary to vascular congestion History of diabetes mellitus controlled patient is currently on sliding scale insulin with Accu-Cheks ACH S Chronic nicotine use GI prophylaxis DVT prophylaxis Patient will be evaluated by cardiology and pulmonary continue on IV Lasix with strict intake and output monitoring. She will be started on DuoNebs scheduled and as needed. Repeat BMP in the a.m. The impression and plan of care has been dictated by Ginger Lawrence, Nurse Practitioner as directed. Dr. Uma MD I have performed a history and physical examination and medical decision making of this patient, discussed the same with the dictator, and agree with the dictators assessment and plan as written, documented as a scribe. Based on total visit time, I have performed more than 50% of this visit. Objective - Vital Signs Vital signs: Vital Signs Temp 98.2 F 11/11/23 11:37 Pulse 99 11/11/23 11:37 Resp 18 11/11/23 11:37 BP 128/89 11/11/23 11:37 Pulse Ox 95 11/11/23 11:37 FiO2 Intake & Output 11/10/23 11/11/2311/10/24 18:59 06:59 18:59 Intake Total 228 118 Output Total 300 600 600 Balance -62 -703 -007 Weight 86.2 kg 99.6 kg Intake: Oral 228 118 Output: Urine 300 600 600 Other: Voiding Method Toilet Toilet Toilet Incontinent Incontinent Incontinent External Catheter External Catheter # Bowel Movements 1 - Labs CBC & Chem 7: 11/09/23 19:54 11/11/23 07:39 Labs: Abnormal Lab Results - Last 24 Hours (Table) 11/10/23 11/10/23 11/10/23 Range/Units 14:52 16:36 20:11 Chloride (98-107) mmol/L Carbon Dioxide (22-30) mmol/L BUN (7-17) mg/dL Creatinine (0.52-1.04) mg/dL Glucose (74-99) mg/dL POC Glucose (mg/dL) 150 H 144 H (70-110) mg/dL Procalcitonin 0.20 H (0.02-0.09) ng/mL 11/11/23 11/11/23 11/11/23 Range/Units 05:20 07:39 11:27 Chloride 96 L (98-107) mmol/L Carbon Dioxide 32 H (22-30) mmol/L BUN 48 H (7-17) mg/dL Creatinine 1.82 H (0.52-1.04) mg/dL Glucose 152 H (74-99) mg/dL POC Glucose (mg/dL) 184 H 184 H (70-110) mg/dL Procalcitonin (0.02-0.09) ng/mL Assessment and Plan Time with Patient: Less than 30
[2023-11-11] MEDS: SPIRONOLACTONE 25 MG TAB PO SCH (15:35)
[2023-11-11] MEDS: metOLazone 2.5 MG TAB PO SCH (15:35)
[2023-11-11 15:57] LABS: Glucose,Whole Blood 154 mg/dL (70-110)
--- NOTE | 2023-11-11 17:46 | P.PN ---
Subjective Progress Note Date: 11/11/23 History of present illness: This is a 62-year-old female with past medical history of hypertension, diabetes mellitus type 2, COPD, tobacco use and dependence. Patient complains of shortness of breath and swelling that been going on for the past 3 weeks. She thought she could treated herself with diuretics at home but the swelling did not seem to improve. She does have history of having oxygen at home but she states she recently sent it back. She does have a nebulizer which she is not using. She states that Dr. Roche sent her here for an echocardiogram. 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 Patient is status post IV Lasix 40 mg once and continued on 40 mg every 12 hours. EKG sinus rhythm Chest x-ray: Marked enlargement of the cardiac silhouette. Interstitial/alveolar phase pulmonary edema. WBC 7.1, hemoglobin 13.1, platelet count 214. BUN 52, creatinine 2.01. Troponin negative x 3. Total bilirubin 2.2, AST 41, ALT 29, alkaline p hosphatase 117. proBNP 16,000. Sodium 138, potassium 4.0, chloride 97, CO2 27. Home cardiac medications: Amlodipine 10 mg daily, atorvastatin 80 mg at bedtime, Lasix 40 mg twice daily, spironolactone/hydrochlorothiazide 25-25 mg 2 tablets daily. Progress note 11/11/2023 Patient is seen and examined at bedside this a.m. BP 128/89, heart rate 95, sinus rhythm on telemetry Creatinine 1.82. Yesterday it was 2. Creatinine and BUN has improved with diuretics Still appears clinically volume overloaded Physical examination: HEENT: Head is atraumatic, normocephalic. Pupils equal, round. Sclerae is anicteric. NECK: Has elevated JVD LUNGS: Diffuse wheezing bilateral. No intercostal retractions. HEART: Regular rate and rhythm. No murmur. ABDOMEN: Soft AzaSite is EXTREMITIES: Bilateral lower extremity edema. No calf tenderness. NEUROLOGICAL: Patient is awake, alert and oriented x3. Assessment: Acute on chronic heart failure, systolic EF 15-20% Etiology of cardiomyopathy unknown at this time. Reports family history of premature cardiac in brother in 30s COPD exacerbation Ascites Hypertension Diabetes mellitus type 2 COPD Tobacco use and dependence Plan: Start aspirin 81 mg. Continue atorvastatin 40 mg Continue Lasix 40 mg IV 3 times daily. Add metolazone 2.5 mg daily Add Aldactone 12.5 mg daily Once fluid status improves, consider adding beta-sammi tomorrow or day after tomorrow Prior to discharge she should be started on Entresto and Farxiga Objective - Vital Signs Vital signs: Vital Signs Temp 97.9 F 11/11/23 15:32 Pulse 91 11/11/23 15:32 Resp 20 11/11/23 15:32 BP 101/68 11/11/23 15:32 Pulse Ox 100 11/11/23 15:32 FiO2 Intake & Output 11/10/23 11/11/23 11/11/23 18:59 06:59 18:59 Intake Total 228 118 Output Total 300 600 600 Balance -72 482 -600 Weight 86.2 kg 99.6 kg Intake: Oral 228 118 Output: Urine 300 600 600 Other: Voiding Method Toilet Toilet Toilet Incontinent Incontinent Incontinent External Catheter External Catheter # Bowel Movements 1 - Labs CBC & Chem 7: 11/09/23 19:54 11/11/23 07:39 Labs: Abnormal Lab Results - Last 24 Hours (Table) 11/10/23 11/10/23 11/11/23 Range/Units 14:52 20:11 05:20 Chloride (98-107) mmol/L Carbon Dioxide (22-30) mmol/L BUN (7-17) mg/dL Creatinine (0.52-1.04) mg/dL Glucose (74-99) mg/dL POC Glucose (mg/dL) 144 H 184 H (70-110) mg/dL Procalcitonin 0.20 H (0.02-0.09) ng/mL 11/11/23 11/11/23 11/11/23 Range/Units 07:39 11:27 15:55 Chloride 96 L (98-107) mmol/L Carbon Dioxide 32 H (22-30) mmol/L BUN 48 H (7-17) mg/dL Creatinine 1.82 H (0.52-1.04) mg/dL Glucose 152 H (74-99) mg/dL POC Glucose (mg/dL) 184 H 154 H (70-110) mg/dL Procalcitonin (0.02-0.09) ng/mL
[2023-11-11] MEDS: ATORVASTATIN 40 MG TAB PO SCH (19:51)
[2023-11-11 20:15] LABS: Glucose,Whole Blood 205 mg/dL (70-110)
[2023-11-12 06:02] LABS: Glucose,Whole Blood 144 mg/dL (70-110)
[2023-11-12 09:21] LABS: African American GFR (CKD) 33 (>60 ml/min/1.73 sqM); Anion Gap 11 mmol/L; Blood Urea Nitrogen 50 mg/dL (7-17); Calcium 9.3 mg/dL (8.4-10.2); Carbon Dioxide 33 mmol/L (22-30); Chloride 95 mmol/L (98-107); Glucose 149 mg/dL (74-99); Magnesium 1.6 mg/dL (1.6-2.3); Non-African American GFR(CKD) 29 (>60 ml/min/1.73 sqM); Potassium 3.9 mmol/L (3.5-5.1); Sodium 139 mmol/L (137-145)
[2023-11-12 11:16] LABS: Glucose,Whole Blood 138 mg/dL (70-110)
[2023-11-12] MEDS ORDERED: Magnesium Replacement Protocol 1 EACH MISC MISCELLANE PRN (12:25)
--- NOTE | 2023-11-12 12:27 | P.PN ---
Subjective Progress Note Date: 11/12/23 This is a pleasant 62-year-old female medical history significant for COPD, diabetes mellitus, hypertension. Patient is a daily smoker states that she quit about 5 days ago. Patient comes into the hospital after 3-week complaint of lower extremity edema she was seen by her PCP Dr. Roche who sent her into the hospital for further testing and evaluation. Patient has been using diuretics at home without improvement in her symptoms. She is denying shortness of breath, denying chest pain. Patient was noted to be hypoxic on admission with an oxygenation of 91%. She was started on nasal cannula patient does state that she has worn oxygen in the past due to her COPD however she has not been using i t because she wanted to continue smoking. Patient had a chest x-ray done on admission showing no acute skeletal or soft tissue findings. There is concern for pulmonary edema. Her troponin level was negative x 3 however her proBNP was elevated at 16,000. Creatinine is also elevated at 2.01 with no other lab work available for comparison. Patient had an echocardiogram done yesterday November 08 ordered by her PCP showing severe LV systolic dysfunction with diffuse global hypokinesis EF is noted to be 20%. There is moderate mitral vegetation and moderate tricuspid regurgitation. She also had an abdominal pelvis CT done for abdominal distention revealing prominent anasarca. Patient has been started on IV Lasix, she is admitted to the hospital under medicine with a consult placed to cardiology. 11/11/2023 Patient is seen in follow-up on the medical floor. She continues on IV Lasix every 8 hours with a urine output of 1272 mL in the last 24 hours. Creatinine slowly improving and is down to 1.82 today. Blood glucose is elevated in the 180s. Hemoglobin A1c of 6.0. Maintained on nasal cannula oxygen support at 5 L with a saturation of 95% her lung sounds are clearing today and likely this can be weaned. Patient was noted to have features of cellulitis to the left lower extremity and has been started on oral Keflex. Lower extremities are edematous and weeping. 11/12/2023 Patient is seen in follow-up on the stepdown unit. She remains on IV Lasix every 8 hours. 1.3 L of urine output in the last 24 hours. Patient has also been incontinent of some urine. Her lung sounds are clearing and her oxygen saturation has improved. Would recommend to begin weaning oxygen. Patient continues on oral Keflex. Her lower extremity is wrapped with Wang bandages. Creatinine remained stable at 1.84. Review of Systems Constitutional: Denied any fatigue denied any fever. Cardio vascular: denied any chest pain, palpitations Gastrointestinal: denied any nausea, vomiting, diarrhea Pulmonary: Denied any shortness of breath cough Neurologic denied any new focal deficits All inpatient medications were reviewed and appropriate changes in these medications as dictated in the interval history and assessment and plan. PHYSICAL EXAMINATION: GENERAL: The patient is alert and oriented x3, not in any acute distress. Well developed, well nourished. HEENT: Pupils are round and equally reacting to light. EOMI. No scleral icterus. No conjunctival pallor. Normocephalic, atraumatic. No pharyngeal erythema. No thyromegaly. CARDIOVASCULAR: S1 and S2 present. No murmurs, rubs, or gallops. PULMONARY: Lung sounds are diminished. Equal air entry bilaterally. ABDOMEN: Soft, nontender, nondistended, normoactive bowel sounds. No palpable organomegaly. MUSCULOSKELETAL: No joint swelling or deformity. EXTREMITIES: No cyanosis, clubbing. Patient has pitting lower extremity edema. NEUROLOGICAL: Gross neurological examination did not reveal any focal deficits. SKIN: No rashes. Assessment and plan Acute systolic heart failure patient has been started on IV Lasix increased to every 8 hours recommend strict intake and output monitoring and daily weights Acute hypoxic respiratory failure secondary to above continue on oxygen support nasal cannula at 4 L and titrate as tolerated Acute kidney injury possibly cardiorenal syndrome; Creatinine improving Left lower extremity cellulitis, patient has been started on oral keflex would recommend wrapping LE in Kerlex and Wang bandages bilaterally. History of COPD with no acute exacerbation Abdominal ascites secondary to vascular congestion History of diabetes mellitus controlled patient is currently on sliding scale insulin with Accu-Cheks ACHS Chronic nicotine use GI prophylaxis DVT prophylaxis Patient will be evaluated by cardiology and pulmonary continue on IV Lasix with strict intake and output monitoring. She will be started on DuoNebs scheduled and as needed. Repeat BMP in the a.m. The impression and plan of care has been dictated by Ginger Lawrence Nurse Practitioner as directed. Dr. Uma MD I have performed a history and physical examination and medical decision making of this patient, discussed the same with the dictator, and agree with the dictators assessment and plan as written, documented as a scribe. Based on total visit time, I have performed more than 50% of this visit. Objective - Vital Signs Vital signs: Vital Signs Temp 98.3 F 11/12/23 08:00 Pulse 92 11/12/23 11:57 Resp 18 11/12/23 08:00 BP 115/78 11/12/23 08:00 Pulse Ox 97 11/12/23 08:00 FiO2 Intake & Output 11/11/23 11/12/23 11/12/23 17:59 06:59 18:59 Intake Total 458 Output Total 350 Balance 108 Weight Intake: Oral 458 Output: Urine 350 Other: Voiding Method Toilet Incontinent # Voids # Bowel Movements - Labs CBC & Chem 7: 11/09/23 19:54 11/12/23 08:16 Labs: Abnormal Lab Results - Last 24 Hours (Table) 11/11/23 11/11/23 11/11/23 Range/Units 11:27 15:55 20:14 Chloride (98-107) mmol/L Carbon Dioxide (22-30) mmol/L BUN (7-17) mg/dL Creatinine (0.52-1.04) mg/dL Glucose (74-99) mg/dL POC Glucose (mg/dL) 184 H 154 H 205 H (70-110) mg/dL 11/12/23 11/12/23 11/12/23 Range/Units 06:00 08:16 11:15 Chloride 95 L (98-107) mmol/L Carbon Dioxide 33 H (22-30) mmol/L BUN 50 H (7-17) mg/dL Creatinine 1.84 H (0.52-1.04) mg/dL Glucose 149 H (74-99) mg/dL POC Glucose (mg/dL) 144 H 138 H (70-110) mg/dL Assessment and Plan Time with Patient: Less than 30
[2023-11-12] MEDS: ACETAMINOPHEN TAB 325 MG TAB PO PRN (14:03)
[2023-11-12] MEDS: MAGNESIUM SULFATE-D5W PMX 1 GM in DEXTROSE/WATER 1 100ML.BAG IVPB SCH (14:03)
--- NOTE | 2023-11-12 14:08 | P.PN ---
Subjective Progress Note Date: 11/12/23 This is a pleasant 62-year-old female patient with a 50+ year history of smoking, hypertension, hyperlipidemia, gout. She was recently found to have severely impaired left ventricular systolic function with an ejection fraction of 20%. She had developed increasing lower extremity edema, increasing abdom inal fullness over the past 2 weeks. She was directed here to the emergency room yesterday. CT scan of the abdomen pelvis revealed prominent anasarca. Is also noted right pleural effusion and passive right lung base atelectasis. Scant left pleural effusion. This x-ray reveals evidence of pulmonary edema. White count 7.1. Hemoglobin 13.1. Platelets 214. Sodium 138. Potassium 4.0. Bicarb 27. BUN 52. Creatinine 2.01. Troponins are negative x 3. proBNP 16,000. She is seen today in consultation on the selective care unit. She is currently awake and alert in no acute distress. She is dyspneic with conversation. Dyspneic with minimal exertion. Maintaining O2 saturation in the low 90s on 4 L/min per nasal cannula. Afebrile. Hemodynamically stable. Patient was reevaluated today on 11/11/2023, patient is feeling better, breathing a bit easier, less cough less wheezing less shortness of breath, nonetheless continues to have scattered rhonchi and wheezes on physical examination. Remains on 5 L nasal cannula, O2 sats 95% basic metabolic profile is normal today, BUN is 48 creatinine 1.82 improved compared to yesterday's creatinine of 2.01 The patient is seen today November 12, 2023 in follow-up on the regular medical floor. She is currently sitting up at the bedside. Awake and alert in no acute distress. She is maintaining O2 saturations in the 90s on 5 L high flow nasal cannula. She is less bronchospastic and wheezing. Less edema. Sodium 139. Potassium 3.9. Bicarb 33. BUN 50. Creatinine 1.84. Glucose 149. She is continued on DuoNeb inhalations, Symbicort, Solu-Medrol. Remains on IV and oral diuretics. No accurate I & O recorded. Currently on Keflex. Heparin for DVT prophylaxis. Objective - Vital Signs Vital signs: Vital Signs Temp 97.7 F 11/12/23 12:00 Pulse 99 11/12/23 12:00 Resp 16 11/12/23 12:00 BP 109/73 11/12/23 12:00 Pulse Ox 98 11/12/23 12:00 FiO2 Intake & Output 11/11/23 11/12/23 11/12/23 17:59 06:59 18:59 Intake Total 680 Output Total 350 Balance 330 Weight Intake: Oral 680 Output: Urine 350 Other: Voiding Method Toilet Incontinent # Voids # Bowel Movements - Exam GENERAL EXAM: Alert, 62-year-old female, sitting up at the bedside, remains on 5 L nasal cannula HEAD: Normocephalic. EYES: Normal reaction of pupils, equal size. NOSE: Clear with pink turbinates. THROAT: Edentulous. No erythema or exudates. NECK: No masses, no JVD. CHEST: No chest wall deformity. LUNGS: Scattered wheezing on forced expiratory maneuver noted bilaterally. CVS: S1 and S2 normal with no audible murmur, regular rhythm. ABDOMEN: Positive fluid wave. No hepatosplenomegaly, normal bowel sounds, no guarding or rigidity. SPINE: No scoliosis or deformity SKIN: No rashes CENTRAL NERVOUS SYSTEM: No focal deficits, tone is normal in all 4 extremities. EXTREMITIES: 2+ bipedal edema. Lower extremity cellulitis - Labs CBC & Chem 7: 11/09/23 19:54 11/12/23 08:16 Labs: Abnormal Lab Results - Last 24 Hours (Table) 11/11/23 11/11/23 11/12/23 Range/Units 15:55 20:14 06:00 Chloride (98-107) mmol/L Carbon Dioxide (22-30) mmol/L BUN (7-17) mg/dL Creatinine (0.52-1.04) mg/dL Glucose (74-99) mg/dL POC Glucose (mg/dL) 154 H 205 H 144 H (70-110) mg/dL 11/12/23 11/12/23 Range/Units 08:16 11:15 Chloride 95 L (98-107) mmol/L Carbon Dioxide 33 H (22-30) mmol/L BUN 50 H (7-17) mg/dL Creatinine 1.84 H (0.52-1.04) mg/dL Glucose 149 H (74-99) mg/dL POC Glucose (mg/dL) 138 H (70-110) mg/dL Assessment and Plan Assessment: Acute hypoxemic respiratory failure secondary to an acute exacerbation of systolic congestive heart failure in a patient found to have impaired left ventricular systolic function with ejection fraction of 20% Generalized anasarca Acute exacerbation of chronic obstructive pulmonary disease Chronic and ongoing tobacco dependence greater than 45 years Left lower extremity cellulitis, on Keflex Diabetes mellitus Hyperlipidemia History of gout Plan: The patient was seen and evaluated Labs and medications reviewed Continued on Lasix 40 mg IV every 8 hours Continued on DuoNeb inhalations, Symbicort, Singulair, Solu Medrol Titrate the FiO2 as tolerated We will continue to follow I have personally seen and examined the patient, performed the documentation and the assessment and plan as written. Number of minutes spent on the visit: 10.
[2023-11-12 15:37] LABS: Glucose,Whole Blood 158 mg/dL (70-110)
[2023-11-12] MEDS: METOPROLOL SUCCINATE (ER) 25 MG TAB.ER.24H PO SCH (17:39)
[2023-11-12] MEDS: ASPIRIN 81 MG PO SCH (17:39)
--- NOTE | 2023-11-12 18:34 | P.PN ---
Subjective Progress Note Date: 11/12/23 History of present illness: This is a 62-year-old female with past medical history of hypertension, diabetes mellitus type 2, COPD, tobacco use and dependence. Patient complains of shortness of breath and swelling that been going on for the past 3 weeks. She thought she could treated herself with diuretics at home but the swelling did not seem to improve. She does have history of having oxygen at home but she states she recently sent it back. She does have a nebulizer which she is not using. She states that Dr. Roche sent her here for an echocardiogram. 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 Patient is status post IV Lasix 40 mg once and continued on 40 mg every 12 hours. EKG sinus rhythm Chest x-ray: Marked enlargement of the cardiac silhouette. Interstitial/alveolar phase pulmonary edema. WBC 7.1, hemoglobin 13.1, platelet count 214. BUN 52, creatinine 2.01. Troponin negative x 3. Total bilirubin 2.2, AST 41, ALT 29, alkaline p hosphatase 117. proBNP 16,000. Sodium 138, potassium 4.0, chloride 97, CO2 27. Home cardiac medications: Amlodipine 10 mg daily, atorvastatin 80 mg at bedtime, Lasix 40 mg twice daily, spironolactone/hydrochlorothiazide 25-25 mg 2 tablets daily. Progress note 11/11/2023 Patient is seen and examined at bedside this a.m. BP 128/89, heart rate 95, sinus rhythm on telemetry Creatinine 1.82. Yesterday it was 2. Creatinine and BUN has improved with diuretics Still appears clinically volume overloaded Progress note 11/12/2023 Patient reports that she feels better. Her swelling and abdominal distention is coming down. Blood pressure 122/75, heart rate 95, sinus rhythm on telemetry Sodium 139, potassium 3.9, BUN 50, creatinine 1.8. Creatinine was 1.8 yesterday and is: Stabilizing. 1400 cc of urine output yesterday. Physical examination: HEENT: Head is atraumatic, normocephalic. Pupils equal, round. Sclerae is anicteric. NECK: Has elevated JVD LUNGS: Diffuse wheezing bilateral. No intercostal retractions. HEART: Regular rate and rhythm. No murmur. ABDOMEN: Soft AzaSite is EXTREMITIES: Bilateral lower extremity edema. No calf tenderness. NEUROLOGICAL: Patient is awake, alert and oriented x3. Assessment: Acute on chronic heart failure, systolic EF 15-20% Etiology of cardiomyopathy unknown at this time. Reports family history of premature cardiac in brother in 30s FABIANA on CKD COPD exacerbation Ascites Hypertension Diabetes mellitus type 2 COPD Tobacco use and dependence Plan: Start aspirin 81 mg. Continue atorvastatin 40 mg Continue IV Lasix 40 3 times daily today. Transition to Bumex 1 mg p.o. twice daily tomorrow Add Farxiga 5 mg daily Add metoprolol succinate 25 mg daily Continue Aldactone 12.5 mg daily Once patient is optimized from heart failure standpoint, and if patient's kidney function improves, patient will need a heart catheterization. If inpatient heart catheterization is planned, nephrology should be consulted to assist with CKD management prior to cath Prior to discharge she should be started on Entresto if kidney function and blood pressure allows. Objective - Vital Signs Vital signs: Vital Signs Temp 98.1 F 11/12/23 16:00 Pulse 95 11/12/23 16:00 Resp 16 11/12/23 16:00 BP 112/75 11/12/23 16:00 Pulse Ox 98 11/12/23 16:00 FiO2 Intake & Output 11/11/23 11/12/23 11/12/23 17:59 06:59 18:59 Intake Total 680 Output Total 350 Balance 330 Weight Intake: Oral 680 Output: Urine 350 Other: Voiding Method Toilet Incontinent # Voids # Bowel Movements - Labs CBC & Chem 7: 11/09/23 19:54 11/12/23 08:16 Labs: Abnormal Lab Results - Last 24 Hours (Table) 11/11/23 11/12/23 11/12/23 Range/Units 20:14 06:00 08:16 Chloride 95 L (98-107) mmol/L Carbon Dioxide 33 H (22-30) mmol/L BUN 50 H (7-17) mg/dL Creatinine 1.84 H (0.52-1.04) mg/dL Glucose 149 H (74-99) mg/dL POC Glucose (mg/dL) 205 H 144 H (70-110) mg/dL 11/12/23 11/12/23 Range/Units 11:15 15:36 Chloride (98-107) mmol/L Carbon Dioxide (22-30) mmol/L BUN (7-17) mg/dL Creatinine (0.52-1.04) mg/dL Glucose (74-99) mg/dL POC Glucose (mg/dL) 138 H 158 H (70-110) mg/dL
[2023-11-12 20:40] LABS: Glucose,Whole Blood 165 mg/dL (70-110)
[2023-11-12] MEDS: NEOMYCIN-BACITRACIN-POLY OINT 14 GM TUBE TOPICAL SCH (23:18)
[2023-11-12] MEDS: LOPERAMIDE 2 MG CAP PO PRN (23:18)
[2023-11-12] MEDS: ZINC OXIDE PASTE (Z-GUARD) 1 APPLIC TOPICAL PRN (23:18)
[2023-11-13 06:09] LABS: Glucose,Whole Blood 213 mg/dL (70-110)
[2023-11-13] MEDS: DAPAGLIFLOZIN PROPANEDIOL 5 MG TABLET PO SCH (08:23)
[2023-11-13] MEDS: BUMETANIDE 1 MG TAB PO SCH (08:23)
[2023-11-13 08:29] LABS: African American GFR (CKD) 39 (>60 ml/min/1.73 sqM); Anion Gap 12 mmol/L; Blood Urea Nitrogen 58 mg/dL (7-17); Calcium 9.4 mg/dL (8.4-10.2); Carbon Dioxide 27 mmol/L (22-30); Chloride 97 mmol/L (98-107); Glucose 119 mg/dL (74-99); Non-African American GFR(CKD) 34 (>60 ml/min/1.73 sqM); Sodium 136 mmol/L (137-145)
[2023-11-13] MEDS: NICOTINE 21MG/24HR PATCH TRANSDERM SCH (10:06)
[2023-11-13 11:44] LABS: Glucose,Whole Blood 132 mg/dL (70-110)
--- NOTE | 2023-11-13 13:59 | P.PN ---
Subjective Progress Note Date: 11/13/23 Principal diagnosis: Congestive heart failure. This is a pleasant 62-year-old female patient with a 50+ year history of smoking, hypertension, hyperlipidemia, gout. She was recently found to have severely impaired left ventricular systolic function with an ejection fraction of 20%. She had developed increasing lower extremity edema, increasing abdominal fullness over the past 2 weeks. She was directed here to the emergency room yesterday. CT scan of the abdomen pelvis revealed prominent anasarca. Is also noted right pleural effusion and passive right lung base atelectasis. Scant left pleural effusion. This x-ray reveals evidence of pulmonary edema. White count 7.1. Hemoglobin 13.1. Platelets 214. Sodium 138. Potassium 4.0. Bicarb 27. BUN 52. Creatinine 2.01. Troponins are negative x 3. proBNP 16,000. She is seen today in consultation on the [facility] e care unit. She is currently awake and alert in no acute distress. She is dyspneic with conversation. Dyspneic with minimal exertion. Maintaining O2 saturation in the low 90s on 4 L/min per nasal cannula. Afebrile. Hemodynamically stable. Patient was reevaluated today on 11/11/2023, patient is feeling better, breathing a bit easier, less cough less wheezing less shortness of breath, nonetheless continues to have scattered rhonchi and wheezes on physical examination. Remains on 5 L nasal cannula, O2 sats 95% basic metabolic profile is normal today, BUN is 48 creatinine 1.82 improved compared to yesterday's creatinine of 2.01 The patient is seen today November 12, 2023 in follow-up on the regular medical floor. She is currently sitting up at the bedside. Awake and alert in no acute distress. She is maintaining O2 saturations in the 90s on 5 L high flow nasal cannula. She is less bronchospastic and wheezing. Less edema. Sodium 139. Potassium 3.9. Bicarb 33. BUN 50. Creatinine 1.84. Glucose 149. She is continued on DuoNeb inhalations, Symbicort, Solu-Medrol. Remains on IV and oral diuretics. No accurate I & O recorded. Currently on Keflex. Heparin for DVT prophylaxis. Progress note dated November 13, 2023. 62-year-old female, who seen today in room 364. She was admitted with a diagnosis of CHF, and anasarca. She is not receiving any IV fluids. She is on oxygen at 3 L by nasal cannula. She states that she finally quit smoking. Current labs include a sodium 136, potassium 4, chloride 97, CO2 27, anion gap 12, BUN 58, creatinine 1.60. Glucose is 119. Calcium 9.4, with a magnesium of 2.0. She tested negative for C. difficile. Objective - Vital Signs Vital signs: Vital Signs Temp 97.6 F 11/13/23 08:00 Pulse 81 11/13/23 11:35 Resp 20 11/13/23 11:35 BP 102/69 11/13/23 11:35 Pulse Ox 90 L 11/13/23 11:35 FiO2 Intake & Output 11/12/23 11/13/23 11/13/23 18:59 06:59 18:59 Intake Total 680 240 Output Total 350 700 Balance 330 -700 240 Weight 97.3 kg Intake: Oral 680 240 Output: Urine 350 700 Other: Voiding Method Toilet Toilet Toilet Incontinent Incontinent Incontinent # Voids 1 # Bowel Movements 2 - Exam No acute distress, oriented 3. The patient is currently on 3 L by nasal cannula. She is not having any obvious respiratory distress. HEENT examination is grossly unremarkable. Mucous membranes are moist. No oral lesions. Neck supple. Full range of motion. No adenopathy thyromegaly or neck vein distention. Cardiovascular examination reveals regular rhythm rate. S1-S2 normal. No S3 or S4. No discernible murmur noted. Heart rate is 81 bpm. Lungs reveal minimal basilar crackles. Breath sounds are equal bilaterally. No rhonchi. Minimal expiratory wheezes. Saturations are 90%, on 3 L. Abdomen soft bowel sounds are heard. No masses or tenderness. Extremities are intact. No cyanosis or clubbing. Mild edema is noted. Skin is without rash or lesion. Neurologic examination is brief but nonfocal. - Labs CBC & Chem 7: 11/09/23 19:54 11/13/23 07:13 Labs: Abnormal Lab Results - Last 24 Hours (Table) 11/12/23 11/12/23 11/13/23 Range/Units 15:36 20:38 06:07 Sodium (137-145) mmol/L Chloride (98-107) mmol/L BUN (7-17) mg/dL Creatinine (0.52-1.04) mg/dL Glucose (74-99) mg/dL POC Glucose (mg/dL) 158 H 165 H 213 H (70-110) mg/dL 11/13/23 11/13/23 Range/Units 07:13 11:42 Sodium 136 L (137-145) mmol/L Chloride 97 L (98-107) mmol/L BUN 58 H (7-17) mg/dL Creatinine 1.60 H (0.52-1.04) mg/dL Glucose 119 H (74-99) mg/dL POC Glucose (mg/dL) 132 H (70-110) mg/dL Assessment and Plan Assessment: Acute hypoxemic respiratory failure secondary to an acute exacerbation of systolic congestive heart failure with ejection fraction of 20%. Generalized anasarca. Acute exacerbation of chronic obstructive pulmonary disease. Chronic and ongoing tobacco dependence greater than 45 years. Left lower extremity cellulitis. Diabetes mellitus. Hyperlipidemia. History of gout. Plan: Plan dated November 13, 2023. The patient is seen today in room 364. She continues on 3 L of oxygen. The patient states that she finally quit smoking. Labs, x-rays, medications are reviewed. She continues on DuoNebs, Symbicort, and Solu-Medrol. In addition, she continues on IV Lasix. We will continue to follow the patient, make recommendations along the way. The patient's overall prognosis remains guarded. She also continues on Keflex for her cellulitis. Time with Patient: Less than 30
--- NOTE | 2023-11-13 14:12 | P.PN ---
Subjective Progress Note Date: 11/13/23 History of present illness: This is a 62-year-old female with past medical history of hypertension, diabetes mellitus type 2, COPD, tobacco use and dependence. Patient complains of shortness of breath and swelling that been going on for the past 3 weeks. She thought she could treated herself with diuretics at home but the swelling did not seem to improve. She does have history of having oxygen at home but she states she recently sent it back. She does have a nebulizer which she is not using. She states that Dr. Roche sent her here for an echocardiogram. 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 Patient is status post IV Lasix 40 mg once and continued on 40 mg every 12 hours. EKG sinus rhythm Chest x-ray: Marked enlargement of the cardiac silhouette. Interstitial/alveolar phase pulmonary edema. WBC 7.1, hemoglobin 13.1, platelet count 214. BUN 52, creatinine 2.01. Troponin negative x 3. Total bilirubin 2.2, AST 41, ALT 29, alkaline p hosphatase 117. proBNP 16,000. Sodium 138, potassium 4.0, chloride 97, CO2 27. Home cardiac medications: Amlodipine 10 mg daily, atorvastatin 80 mg at bedtime, Lasix 40 mg twice daily, spironolactone/hydrochlorothiazide 25-25 mg 2 tablets daily. 11/11/2023 Patient is seen and examined at bedside this a.m. BP 128/89, heart rate 95, sinus rhythm on telemetry Creatinine 1.82. Yesterday it was 2. Creatinine and BUN has improved with diuretics Still appears clinically volume overloaded 11/12/2023 Patient reports that she feels better. Her swelling and abdominal distention is coming down. Blood pressure 122/75, heart rate 95, sinus rhythm on telemetry Sodium 139, potassium 3.9, BUN 50, creatinine 1.8. Creatinine was 1.8 yesterday and is: Stabilizing. 1400 cc of urine output yesterday. 11/12 Patient complains of cough and phlegm production. She states she quit smoking 2 weeks ago and said increased phlegm production. She also has wheezing. She has continued lower extremity edema that is mild and improved since she arrived. Blood pressure 102/69, heart rate 81, pulse ox 90% on 4 L and 85% on 3 L. Repeat blood work reveals sodium 136, potassium 4, BUN 58 creatinine 1.6. Yesterday, patient was transitioned off IV Lasix to Bumex oral. Physical examination: HEENT: Head is atraumatic, normocephalic. Pupils equal, round. Sclerae is anicteric. NECK: Has elevated JVD LUNGS: Diffuse wheezing bilateral. No intercostal retractions. HEART: Regular rate and rhythm. No murmur. ABDOMEN: Soft AzaSite is EXTREMITIES: Bilateral lower extremity edema. No calf tenderness. NEUROLOGICAL: Patient is awake, alert and oriented x3. Assessment: Acute on chronic heart failure, systolic EF 15-20% Etiology of cardiomyopathy unknown at this time. Reports family history of premature cardiac in brother in 30s FABIANA on CKD, renal function is improving COPD exacerbation Ascites Hypertension Diabetes mellitus type 2 COPD Tobacco use and dependence Plan: Continue patient on aspirin 81 mg, atorvastatin 40 mg Continue Bumex 1 mg p.o. twice daily, Farxiga 5 mg daily, metoprolol succinate 25 mg daily, Aldactone 12.5 mg daily Once patient is optimized from heart failure standpoint, and if patient's kidney function improves, patient will need a heart catheterization. If inpatient hear t catheterization is planned, nephrology should be consulted to assist with CKD management prior to cath Prior to discharge she should be started on Entresto if kidney function and blood pressure allows. Nurse practitioner note has been reviewed, I agree with documented findings and plan of care. Patient was seen and examined. Objective - Vital Signs Vital signs: Vital Signs Temp 97.6 F 11/13/23 08:00 Pulse 96 11/13/23 08:21 Resp 18 11/13/23 08:00 BP 113/78 11/13/23 08:00 Pulse Ox 98 11/13/23 08:10 FiO2 Intake & Output 11/12/23 11/13/23 11/13/23 18:59 06:59 18:59 Intake Total 680 240 Output Total 350 700 Balance 330 -700 240 Weight 97.3 kg Intake: Oral 680 240 Output: Urine 350 700 Other: Voiding Method Toilet Toilet Toilet Incontinent Incontinent Incontinent # Voids 1 # Bowel Movements 2 - Labs CBC & Chem 7: 11/09/23 19:54 11/13/23 07:13 Labs: Abnormal Lab Results - Last 24 Hours (Table) 11/12/23 11/12/23 11/12/23 Range/Units 11:15 15:36 20:38 Sodium (137-145) mmol/L Chloride (98-107) mmol/L BUN (7-17) mg/dL Creatinine (0.52-1.04) mg/dL Glucose (74-99) mg/dL POC Glucose (mg/dL) 138 H 158 H 165 H (70-110) mg/dL 11/13/23 11/13/23 Range/Units 06:07 07:13 Sodium 136 L (137-145) mmol/L Chloride 97 L (98-107) mmol/L BUN 58 H (7-17) mg/dL Creatinine 1.60 H (0.52-1.04) mg/dL Glucose 119 H (74-99) mg/dL POC Glucose (mg/dL) 213 H (70-110) mg/dL
[2023-11-13 16:31] LABS: Glucose,Whole Blood 158 mg/dL (70-110)
[2023-11-13 19:56] LABS: Glucose,Whole Blood 199 mg/dL (70-110)
[2023-11-14] MEDS: FUROSEMIDE 10 MG/ML 4 ML VIAL IV STA ×2 (03:22→11:20)
[2023-11-14] MEDS: IPRATROPIUM-ALBUTEROL 3 ML NEB INHALATION PRN (03:25)
--- NOTE | 2023-11-14 04:03 | XR ---
EXAM: XR Chest, 1 View CLINICAL HISTORY: Increased oxygen demands; CHF exacerbation TECHNIQUE: Frontal view of the chest. COMPARISON: 11/09/2023. FINDINGS: Patient is slightly rotated to the right. Heart is enlarged. Increased right pleural effusion basilar consolidation. Mild diffuse interstitial prominence compatible with CHF. No pneumothorax. Bones are unchanged. IMPRESSION: Cardiomegaly. Increased CHF. Increased right pleural effusion with basilar edema versus infiltrate.
[2023-11-14 06:00] LABS: Glucose,Whole Blood 188 mg/dL (70-110)
[2023-11-14 08:12] LABS: Anisocytosis Slight; Basophils % (A) 0 %; Eosinophils % (A) 0 %; HCT 38.5 % (34.0-46.0); HGB 11.9 gm/dL (11.4-16.0); Hypochromasia Moderate; Lymphocytes # (A) 0.5 k/uL (1.0-4.8); Lymphocytes % (A) 9 %; MCH 28.1 pg (25.0-35.0); MCHC 30.8 g/dL (31.0-37.0); MCV 91.3 fL (80.0-100.0); Mean Platelet Volume 9.3; Monocytes # (A) 0.3 k/uL (0-1.0); Monocytes % (A) 6 %; Neutrophils # (A) 5.1 k/uL (1.3-7.7); Neutrophils % (A) 85 %; Platelet Count 199 k/uL (150-450); Poikilocytosis Slight; RBC 4.22 m/uL (3.80-5.40); RDW 17.9 % (11.5-15.5)
[2023-11-14 08:39] LABS: African American GFR (CKD) 38 (>60 ml/min/1.73 sqM); Anion Gap 10 mmol/L; Blood Urea Nitrogen 61 mg/dL (7-17); Calcium 9.4 mg/dL (8.4-10.2); Carbon Dioxide 33 mmol/L (22-30); Chloride 95 mmol/L (98-107); Glucose 142 mg/dL (74-99); Non-African American GFR(CKD) 33 (>60 ml/min/1.73 sqM); Potassium 3.8 mmol/L (3.5-5.1); Sodium 138 mmol/L (137-145)
[2023-11-14 09:41] LABS: NT-Pro-B-Type Natriuretic Pept 43600 pg/mL
[2023-11-14 11:36] LABS: Glucose,Whole Blood 153 mg/dL (70-110)
--- NOTE | 2023-11-14 12:21 | P.PN ---
Subjective Progress Note Date: 11/14/23 Principal diagnosis: Congestive heart failure. This is a pleasant 62-year-old female patient with a 50+ year history of smoking, hypertension, hyperlipidemia, gout. She was recently found to have severely impaired left ventricular systolic function with an ejection fraction of 20%. She had developed increasing lower extremity edema, increasing abdominal fullness over the past 2 weeks. She was directed here to the emergency room yesterday. CT scan of the abdomen pelvis revealed prominent anasarca. Is also noted right pleural effusion and passive right lung base atelectasis. Scant left pleural effusion. This x-ray reveals evidence of pulmonary edema. White count 7.1. Hemoglobin 13.1. Platelets 214. Sodium 138. Potassium 4.0. Bicarb 27. BUN 52. Creatinine 2.01. Troponins are negative x 3. proBNP 16,000. She is seen today in consultation on the [facility] e care unit. She is currently awake and alert in no acute distress. She is dyspneic with conversation. Dyspneic with minimal exertion. Maintaining O2 saturation in the low 90s on 4 L/min per nasal cannula. Afebrile. Hemodynamically stable. Patient was reevaluated today on 11/11/2023, patient is feeling better, breathing a bit easier, less cough less wheezing less shortness of breath, nonetheless continues to have scattered rhonchi and wheezes on physical examination. Remains on 5 L nasal cannula, O2 sats 95% basic metabolic profile is normal today, BUN is 48 creatinine 1.82 improved compared to yesterday's creatinine of 2.01 The patient is seen today November 12, 2023 in follow-up on the regular medical floor. She is currently sitting up at the bedside. Awake and alert in no acute distress. She is maintaining O2 saturations in the 90s on 5 L high flow nasal cannula. She is less bronchospastic and wheezing. Less edema. Sodium 139. Potassium 3.9. Bicarb 33. BUN 50. Creatinine 1.84. Glucose 149. She is continued on DuoNeb inhalations, Symbicort, Solu-Medrol. Remains on IV and oral diuretics. No accurate I & O recorded. Currently on Keflex. Heparin for DVT prophylaxis. Progress note dated November 13, 2023. 62-year-old female, who seen today in room 364. She was admitted with a diagnosis of CHF, and anasarca. She is not receiving any IV fluids. She is on oxygen at 3 L by nasal cannula. She states that she finally quit smoking. Current labs include a sodium 136, potassium 4, chloride 97, CO2 27, anion gap 12, BUN 58, creatinine 1.60. Glucose is 119. Calcium 9.4, with a magnesium of 2.0. She tested negative for C. difficile. Progress note dated November 14, 2023. 62-year-old female seen today in room 364. She was admitted with a diagnosis of CHF, and anasarca, with significant edema. Currently, the patient is on oxygen at 6 L. She is not receiving any IV fluids. The patient did smoke for 30 years, but does not smoke currently. The patient is feeling better. Today's labs include a sodium 138, potassium 3.8, chloride 95, CO2 33, anion gap 10, BUN 61, and creatinine 1.65. Her N-terminal proBNP is 43,600. Glucose is 153. White count of 6, hemoglobin 11.9, hematocrit 38.5, and platelet count is 199,000. Chest x-ray is consistent with fluid overload. Objective - Vital Signs Vital signs: Vital Signs Temp 97.5 F L 11/14/23 08:00 Pulse 84 11/14/23 11:35 Resp 18 11/14/23 11:35 BP 104/65 11/14/23 11:35 Pulse Ox 97 11/14/23 11:35 FiO2 Intake & Output 11/13/23 11/14/23 11/14/23 18:59 06:59 18:59 Intake Total 838 240 Output Total 900 1200 200 Balance -62 -1200 40 Weight 94.6 kg Intake: Oral 838 240 Output: Urine 900 1200 200 Other: Voiding Method Toilet Toilet Incontinent Incontinent Incontinent External Catheter # Voids 2 1 - Exam No acute distress, oriented 3. The patient is currently on 6 L by nasal cannula. She is not having any obvious respiratory distress. HEENT examination is grossly unremarkable. Mucous membranes are moist. No oral lesions. Neck supple. Full range of motion. No adenopathy thyromegaly or neck vein distention. Cardiovascular examination reveals regular rhythm rate. S1-S2 normal. No S3 or S4. No discernible murmur noted. Heart rate is 88 bpm. Lungs reveal minimal basilar crackles. Breath sounds are equal bilaterally. No rhonchi. Minimal expiratory wheezes. Saturations are 97% on 6 L. Abdomen soft bowel sounds are heard. No masses or tenderness. Extremities are intact. No cyanosis or clubbing. Mild edema is noted. Skin is without rash or lesion. Neurologic examination is brief but nonfocal. - Labs CBC & Chem 7: 11/14/23 07:38 11/14/23 07:38 Labs: Abnormal Lab Results - Last 24 Hours (Table) 11/13/23 11/13/23 11/14/23 Range/Units 16:29 19:50 05:59 MCHC (31.0-37.0) g/dL RDW (11.5-15.5) % Lymphocytes # (1.0-4.8) k/uL Chloride (98-107) mmol/L Carbon Dioxide (22-30) mmol/L BUN (7-17) mg/dL Creatinine (0.52-1.04) mg/dL Glucose (74-99) mg/dL POC Glucose (mg/dL) 158 H 199 H 188 H (70-110) mg/dL 11/14/23 11/14/23 11/14/23 Range/Units 07:38 07:38 11:34 MCHC 30.8 L (31.0-37.0) g/dL RDW 17.9 H (11.5-15.5) % Lymphocytes # 0.5 L (1.0-4.8) k/uL Chloride 95 L (98-107) mmol/L Carbon Dioxide 33 H (22-30) mmol/L BUN 61 H (7-17) mg/dL Creatinine 1.65 H (0.52-1.04) mg/dL Glucose 142 H (74-99) mg/dL POC Glucose (mg/dL) 153 H (70-110) mg/dL Assessment and Plan Assessment: Acute hypoxemic respiratory failure secondary to an acute exacerbation of systolic congestive heart failure with ejection fraction of 20%. Generalized anasarca. Acute exacerbation of chronic obstructive pulmonary disease. Chronic and ongoing tobacco dependence greater than 45 years. Left lower extremity cellulitis. Diabetes mellitus. Hyperlipidemia. History of gout. Plan: Plan dated November 13, 2023. The patient is seen today in room 364. She continues on 3 L of oxygen. The patient states that she finally quit smoking. Labs, x-rays, medications are reviewed. She continues on DuoNebs, Symbicort, and Solu-Medrol. In addition, she continues on IV Lasix. We will continue to follow the patient, make recommendations along the way. The patient's overall prognosis remains guarded. She also continues on Keflex for her cellulitis. Plan dated November 14, 2023. The patient is seen today in room 364. Currently she is on 6 L. Chest x-ray consistent with fluid overload. Labs, x-rays, and all medications are reviewed. The patient feels like she is doing better. She continues on appropriate medications including breathing treatments, and corticosteroids. She also continues on IV Lasix. She is sitting on the edge of the bed, in no distress. The patient is hoping to be able to be discharged soon. She continues on antibiotic for cellulitis. Prognosis is guarded. Time with Patient: Less than 30
--- NOTE | 2023-11-14 14:29 | P.PN ---
Subjective Progress Note Date: 11/14/23 History of present illness: This is a 62-year-old female with past medical history of hypertension, diabetes mellitus type 2, COPD, tobacco use and dependence. Patient complains of shortness of breath and swelling that been going on for the past 3 weeks. She thought she could treated herself with diuretics at home but the swelling did not seem to improve. She does have history of having oxygen at home but she states she recently sent it back. She does have a nebulizer which she is not using. She states that Dr. Roche sent her here for an echocardiogram. 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 Patient is status post IV Lasix 40 mg once and continued on 40 mg every 12 hours. EKG sinus rhythm Chest x-ray: Marked enlargement of the cardiac silhouette. Interstitial/alveolar phase pulmonary edema. WBC 7.1, hemoglobin 13.1, platelet count 214. BUN 52, creatinine 2.01. Troponin negative x 3. Total bilirubin 2.2, AST 41, ALT 29, alkaline p hosphatase 117. proBNP 16,000. Sodium 138, potassium 4.0, chloride 97, CO2 27. Home cardiac medications: Amlodipine 10 mg daily, atorvastatin 80 mg at bedtime, Lasix 40 mg twice daily, spironolactone/hydrochlorothiazide 25-25 mg 2 tablets daily. 11/11/2023 Patient is seen and examined at bedside this a.m. BP 128/89, heart rate 95, sinus rhythm on telemetry Creatinine 1.82. Yesterday it was 2. Creatinine and BUN has improved with diuretics Still appears clinically volume overloaded 11/12/2023 Patient reports that she feels better. Her swelling and abdominal distention is coming down. Blood pressure 122/75, heart rate 95, sinus rhythm on telemetry Sodium 139, potassium 3.9, BUN 50, creatinine 1.8. Creatinine was 1.8 yesterday and is: Stabilizing. 1400 cc of urine output yesterday. 11/12 Patient complains of cough and phlegm production. She states she quit smoking 2 weeks ago and said increased phlegm production. She also has wheezing. She has continued lower extremity edema that is mild and improved since she arrived. Blood pressure 102/69, heart rate 81, pulse ox 90% on 4 L and 85% on 3 L. Repeat blood work reveals sodium 136, potassium 4, BUN 58 creatinine 1.6. Yesterday, patient was transitioned off IV Lasix to Bumex oral. 11/13 Patient was doing well yesterday and IV Lasix transition to oral Bumex. Apparently during the night patient developed significant shortness of breath required 15 L of nasal cannula and 1 dose of IV Lasix. She states she is feeling much better now seems to be back to her baseline. She has less lower extremity edema. Blood pressure 119/75, heart rate 86, pulse ox 94% on 6 L nasal cannula. Repeat blood work reveals CBC unremarkable. BUN 61 creatinine 1.65. Potassium 3.8. proBNP 43,600. Physical examination: HEENT: Head is atraumatic, normocephalic. Pupils equal, round. Sclerae is anicteric. NECK: Has elevated JVD LUNGS: Diffuse wheezing bilateral. No intercostal retractions. HEART: Regular rate and rhythm. No murmur. ABDOMEN: Soft. EXTREMITIES: Bilateral lower extremity edema. No calf tenderness. NEUROLOGICAL: Patient is awake, alert and oriented x3. Assessment: Acute on chronic heart failure, systolic EF 15-20% Etiology of cardiomyopathy unknown at this time. Reports family history of premature cardiac in brother in 30s FABIANA on CKD, renal function is improving COPD exacerbation Ascites Hypertension Diabetes mellitus type 2 COPD Tobacco use and dependence Plan: Continue patient on aspirin 81 mg, atorvastatin 40 mg Continue Bumex 1 mg p.o. twice daily, Farxiga increased to 10 mg daily, metoprolol succinate 25 mg daily, Aldactone 12.5 mg daily Give 1 dose of IV Lasix 40 mg Plan to monitor 1 more day and possible discharge home tomorrow. Nurse practitioner note has been reviewed, I agree with documented findings and plan of care. Patient was seen and examined. Objective - Vital Signs Vital signs: Vital Signs Temp 97.5 F L 11/14/23 08:00 Pulse 88 11/14/23 08:39 Resp 20 11/14/23 08:00 BP 119/75 11/14/23 08:00 Pulse Ox 94 L 11/14/23 08:29 FiO2 Intake & Output 11/13/23 11/14/23 11/14/23 18:59 06:59 18:59 Intake Total 838 240 Output Total 900 1200 200 Balance -62 -1200 40 Weight 94.6 kg Intake: Oral 838 240 Output: Urine 900 1200 200 Other: Voiding Method Toilet Toilet Incontinent Incontinent Incontinent External Catheter # Voids 2 1 - Labs CBC & Chem 7: 11/14/23 07:38 11/14/23 07:38 Labs: Abnormal Lab Results - Last 24 Hours (Table) 11/13/23 11/13/23 11/13/23 Range/Units 11:42 16:29 19:50 MCHC (31.0-37.0) g/dL RDW (11.5-15.5) % Lymphocytes # (1.0-4.8) k/uL Chloride (98-107) mmol/L Carbon Dioxide (22-30) mmol/L BUN (7-17) mg/dL Creatinine (0.52-1.04) mg/dL Glucose (74-99) mg/dL POC Glucose (mg/dL) 132 H 158 H 199 H (70-110) mg/dL 11/14/23 11/14/23 11/14/23 Range/Units 05:59 07:38 07:38 MCHC 30.8 L (31.0-37.0) g/dL RDW 17.9 H (11.5-15.5) % Lymphocytes # 0.5 L (1.0-4.8) k/uL Chloride 95 L (98-107) mmol/L Carbon Dioxide 33 H (22-30) mmol/L BUN 61 H (7-17) mg/dL Creatinine 1.65 H (0.52-1.04) mg/dL Glucose 142 H (74-99) mg/dL POC Glucose (mg/dL) 188 H (70-110) mg/dL
[2023-11-14 16:53] LABS: Glucose,Whole Blood 190 mg/dL (70-110)
[2023-11-14 20:44] LABS: Glucose,Whole Blood 177 mg/dL (70-110)
--- NOTE | 2023-11-14 23:01 | PN ---
PROGRESS NOTE DATE OF SERVICE: 11/13/2023 CHIEF COMPLAINT: Difficulty breathing. HISTORY OF PRESENT ILLNESS: This lady is doing a little bit better, but she still has quite a bit of edema. She is still short of breath, but she feels as though she is getting better. PHYSICAL EXAMINATION: CHEST: She has extensive rales bilaterally. CARDIAC: Unremarkable. ABDOMEN: Very protuberant. EXTREMITIES: She has about a 3+ edema of the legs and ankles. IMPRESSION: 1. Acute congestive heart failure .. 2. COPD. PLAN: Continue to manage both her heart failure and respiratory difficulties. MMODL / IJN: [id number] /
--- NOTE | 2023-11-14 23:22 | PN ---
PROGRESS NOTE DATE OF SERVICE: 11/14/2023 CHIEF COMPLAINT: Shortness of breath. HISTORY OF PRESENT ILLNESS: This lady feels that she is doing a little bit better. She has been up walking without oxygen, but gets very dyspneic, but at times she gets back to her bed. PHYSICAL EXAMINATION: CHEST: She still has extensive scattered rales throughout with occasional rhonchi and she is still wheezing. CARDIAC: Unremarkable. ABDOMEN: Soft, nontender. IMPRESSION: 1. Acute congestive heart failure. 2. Chronic congestive heart failure. 3. COPD. 4. CKD with a BUN of 31 and creatinine 1.5. PLAN: 1. Order echocardiogram. 2. Continue to increase activity while managing her heart failure and her COPD. MMODL / IJN: [id number] /
[2023-11-15 06:11] LABS: Glucose,Whole Blood 180 mg/dL (70-110)
[2023-11-15] MEDS: DAPAGLIFLOZIN PROPANEDIOL 10 MG TABLET PO SCH (11:04)
--- NOTE | 2023-11-15 11:04 | P.PN ---
Subjective Progress Note Date: 11/15/23 Principal diagnosis: Congestive heart failure. This is a pleasant 62-year-old female patient with a 50+ year history of smoking, hypertension, hyperlipidemia, gout. She was recently found to have severely impaired left ventricular systolic function with an ejection fraction of 20%. She had developed increasing lower extremity edema, increasing abdominal fullness over the past 2 weeks. She was directed here to the emergency room yesterday. CT scan of the abdomen pelvis revealed prominent anasarca. Is also noted right pleural effusion and passive right lung base atelectasis. Scant left pleural effusion. This x-ray reveals evidence of pulmonary edema. White count 7.1. Hemoglobin 13.1. Platelets 214. Sodium 138. Potassium 4.0. Bicarb 27. BUN 52. Creatinine 2.01. Troponins are negative x 3. proBNP 16,000. She is seen today in consultation on the [facility] e care unit. She is currently awake and alert in no acute distress. She is dyspneic with conversation. Dyspneic with minimal exertion. Maintaining O2 saturation in the low 90s on 4 L/min per nasal cannula. Afebrile. Hemodynamically stable. Patient was reevaluated today on 11/11/2023, patient is feeling better, breathing a bit easier, less cough less wheezing less shortness of breath, nonetheless continues to have scattered rhonchi and wheezes on physical examination. Remains on 5 L nasal cannula, O2 sats 95% basic metabolic profile is normal today, BUN is 48 creatinine 1.82 improved compared to yesterday's creatinine of 2.01 The patient is seen today November 12, 2023 in follow-up on the regular medical floor. She is currently sitting up at the bedside. Awake and alert in no acute distress. She is maintaining O2 saturations in the 90s on 5 L high flow nasal cannula. She is less bronchospastic and wheezing. Less edema. Sodium 139. Potassium 3.9. Bicarb 33. BUN 50. Creatinine 1.84. Glucose 149. She is continued on DuoNeb inhalations, Symbicort, Solu-Medrol. Remains on IV and oral diuretics. No accurate I & O recorded. Currently on Keflex. Heparin for DVT prophylaxis. Progress note dated November 13, 2023. 62-year-old female, who seen today in room 364. She was admitted with a diagnosis of CHF, and anasarca. She is not receiving any IV fluids. She is on oxygen at 3 L by nasal cannula. She states that she finally quit smoking. Current labs include a sodium 136, potassium 4, chloride 97, CO2 27, anion gap 12, BUN 58, creatinine 1.60. Glucose is 119. Calcium 9.4, with a magnesium of 2.0. She tested negative for C. difficile. Progress note dated November 14, 2023. 62-year-old female seen today in room 364. She was admitted with a diagnosis of CHF, and anasarca, with significant edema. Currently, the patient is on oxygen at 6 L. She is not receiving any IV fluids. The patient did smoke for 30 years, but does not smoke currently. The patient is feeling better. Today's labs include a sodium 138, potassium 3.8, chloride 95, CO2 33, anion gap 10, BUN 61, and creatinine 1.65. Her N-terminal proBNP is 43,600. Glucose is 153. White count of 6, hemoglobin 11.9, hematocrit 38.5, and platelet count is 199,000. Chest x-ray is consistent with fluid overload. Progress note dated November 15, 2023. 62-year-old female, seen today in room 364. Currently, the patient is on oxygen at 4 L by nasal cannula. She is not receiving any IV fluids. The patient's Solu-Medrol is changed to prednisone, 30 mg a day. She is sitting at the side of the bed. She denies any shortness of breath, cough, wheezing, chest tightness, or phlegm production. She is feeling much improved. No new labs today other than a glucose of 180. Yesterday's chest x-ray showed evidence of CHF. Objective - Vital Signs Vital signs: Vital Signs Temp 97.5 F L 11/15/23 03:43 Pulse 80 11/15/23 08:45 Resp 18 11/15/23 03:43 BP 116/79 11/15/23 03:43 Pulse Ox 97 11/15/23 03:43 FiO2 Intake & Output 11/14/23 11/15/23 11/15/23 18:59 06:59 18:59 Intake Total 480 120 236 Output Total 1700 300 Balance -1220 -180 236 Weight 82 kg Intake: Oral 480 120 236 Output: Urine 1700 300 Other: Voiding Method Incontinent Incontinent External Catheter External Catheter - Exam No acute distress, oriented 3. The patient is currently on 4 L by nasal cannula. She is not having any obvious respiratory distress. HEENT examination is grossly unremarkable. Mucous membranes are moist. No oral lesions. Neck supple. Full range of motion. No adenopathy thyromegaly or neck vein distention. Cardiovascular examination reveals regular rhythm rate. S1-S2 normal. No S3 or S4. No discernible murmur noted. Heart rate is 91 bpm. Lungs reveal minimal basilar crackles. Breath sounds are equal bilaterally. No rhonchi. Minimal expiratory wheezes. Saturations are 96 % on 4 L. Abdomen soft bowel sounds are heard. No masses or tenderness. Extremities are intact. No cyanosis or clubbing. Mild edema is noted. Skin is without rash or lesion. Neurologic examination is brief but nonfocal. - Labs CBC & Chem 7: 11/14/23 07:38 11/14/23 07:38 Labs: Abnormal Lab Results - Last 24 Hours (Table) 11/14/23 11/14/23 11/14/23 Range/Units 11:34 16:48 20:42 POC Glucose (mg/dL) 153 H 190 H 177 H (70-110) mg/dL 11/15/23 Range/Units 06:08 POC Glucose (mg/dL) 180 H (70-110) mg/dL Assessment and Plan Assessment: Acute hypoxemic respiratory failure secondary to an acute exacerbation of systolic congestive heart failure with ejection fraction of 20%. Generalized anasarca. Acute exacerbation of chronic obstructive pulmonary disease. Chronic and ongoing tobacco dependence greater than 45 years. Left lower extremity cellulitis. Diabetes mellitus. Hyperlipidemia. History of gout. Plan: Plan dated November 13, 2023. The patient is seen today in room 364. She continues on 3 L of oxygen. The patient states that she finally quit smoking. Labs, x-rays, medications are reviewed. She continues on DuoNebs, Symbicort, and Solu-Medrol. In addition, she continues on IV Lasix. We will continue to follow the patient, make recommendations along the way. The patient's overall prognosis remains guarded. She also continues on Keflex for her cellulitis. Plan dated November 14, 2023. The patient is seen today in room 364. Currently she is on 6 L. Chest x-ray consistent with fluid overload. Labs, x-rays, and all medications are reviewed. The patient feels like she is doing better. She continues on appropriate medications including breathing treatments, and corticosteroids. She also continues on IV Lasix. She is sitting on the edge of the bed, in no distress. The patient is hoping to be able to be discharged soon. She continues on antibiotic for cellulitis. Prognosis is guarded. Plan dated November 15, 2023. The patient was on 6 L yesterday, and has been weaned down to 4 L. She is not receiving any IV fluids. Labs, x-rays, and medications are all reviewed. Her Solu-Medrol is discontinued in favor of prednisone 30 mg a day. We will continue to follow, and make recommendations along the way. She continues on cephalexin for cellulitis. Prognosis is certainly guarded. Time with Patient: Less than 30
[2023-11-15 11:42] LABS: Glucose,Whole Blood 169 mg/dL (70-110)
--- NOTE | 2023-11-15 15:03 | P.PN ---
Subjective Progress Note Date: 11/15/23 History of present illness: This is a 62-year-old female with past medical history of hypertension, diabetes mellitus type 2, COPD, tobacco use and dependence. Patient complains of shortness of breath and swelling that been going on for the past 3 weeks. She thought she could treated herself with diuretics at home but the swelling did not seem to improve. She does have history of having oxygen at home but she states she recently sent it back. She does have a nebulizer which she is not using. She states that Dr. Roche sent her here for an echocardiogram. 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 Patient is status post IV Lasix 40 mg once and continued on 40 mg every 12 hours. EKG sinus rhythm Chest x-ray: Marked enlargement of the cardiac silhouette. Interstitial/alveolar phase pulmonary edema. WBC 7.1, hemoglobin 13.1, platelet count 214. BUN 52, creatinine 2.01. Troponin negative x 3. Total bilirubin 2.2, AST 41, ALT 29, alkaline p hosphatase 117. proBNP 16,000. Sodium 138, potassium 4.0, chloride 97, CO2 27. Home cardiac medications: Amlodipine 10 mg daily, atorvastatin 80 mg at bedtime, Lasix 40 mg twice daily, spironolactone/hydrochlorothiazide 25-25 mg 2 tablets daily. 11/11/2023 Patient is seen and examined at bedside this a.m. BP 128/89, heart rate 95, sinus rhythm on telemetry Creatinine 1.82. Yesterday it was 2. Creatinine and BUN has improved with diuretics Still appears clinically volume overloaded 11/12/2023 Patient reports that she feels better. Her swelling and abdominal distention is coming down. Blood pressure 122/75, heart rate 95, sinus rhythm on telemetry Sodium 139, potassium 3.9, BUN 50, creatinine 1.8. Creatinine was 1.8 yesterday and is: Stabilizing. 1400 cc of urine output yesterday. 11/12 Patient complains of cough and phlegm production. She states she quit smoking 2 weeks ago and said increased phlegm production. She also has wheezing. She has continued lower extremity edema that is mild and improved since she arrived. Blood pressure 102/69, heart rate 81, pulse ox 90% on 4 L and 85% on 3 L. Repeat blood work reveals sodium 136, potassium 4, BUN 58 creatinine 1.6. Yesterday, patient was transitioned off IV Lasix to Bumex oral. 11/13 Patient was doing well yesterday and IV Lasix transition to oral Bumex. Apparently during the night patient developed significant shortness of breath required 15 L of nasal cannula and 1 dose of IV Lasix. She states she is feeling much better now seems to be back to her baseline. She has less lower extremity edema. Blood pressure 119/75, heart rate 86, pulse ox 94% on 6 L nasal cannula. Repeat blood work reveals CBC unremarkable. BUN 61 creatinine 1.65. Potassium 3.8. proBNP 43,600. 11/14 Patient denies having any chest pain or shortness of breath, no lightheadedness or dizziness, no palpitations. Yesterday we transition IV Lasix to oral Bumex and increase Farxiga continue other cardiac medications. Patient did receive 1 dose of IV Lasix yesterday morning. She states her breathing is back to her baseline. Blood pressure 120/79, heart rate 87, pulse ox 92% on 5 L nasal cannula. Physical examination: HEENT: Head is atraumatic, normocephalic. Pupils equal, round. Sclerae is anicteric. NECK: Has elevated JVD LUNGS: Diffuse wheezing bilateral. No intercostal retractions. HEART: Regular rate and rhythm. No murmur. ABDOMEN: Soft. EXTREMITIES: Bilateral lower extremity edema. No calf tenderness. NEUROLOGICAL: Patient is awake, alert and oriented x3. Assessment: Acute on chronic heart failure, systolic EF 15-20% Etiology of cardiomyopathy unknown at this time. Reports family history of premature cardiac in brother in 30s FABIANA on CKD, renal function is improving COPD exacerbation Ascites Hypertension Diabetes mellitus type 2 COPD Tobacco use and dependence Plan: Continue patient on aspirin 81 mg, atorvastatin 40 mg Continue patient's current cardiac medications Patient is cleared for discharge from cardiology and may follow-up with Dr. Tim in 1 to 2 weeks. Nurse practitioner note has been reviewed, I agree with documented findings and plan of care. Patient was seen and examined. Objective - Vital Signs Vital signs: Vital Signs Temp 97.5 F L 11/15/23 03:43 Pulse 80 11/15/23 08:45 Resp 18 11/15/23 03:43 BP 116/79 11/15/23 03:43 Pulse Ox 97 11/15/23 03:43 FiO2 Intake & Output 11/14/23 11/15/23 11/15/23 18:59 06:59 18:59 Intake Total 480 120 118 Output Total 1700 300 Balance -1220 -180 118 Weight 82 kg Intake: Oral 480 120 118 Output: Urine 1700 300 Other: Voiding Method Incontinent Incontinent External Catheter External Catheter - Labs CBC & Chem 7: 11/14/23 07:38 11/14/23 07:38 Labs: Abnormal Lab Results - Last 24 Hours (Table) 11/14/23 11/14/23 11/14/23 Range/Units 11:34 16:48 20:42 POC Glucose (mg/dL) 153 H 190 H 177 H (70-110) mg/dL 11/15/23 Range/Units 06:08 POC Glucose (mg/dL) 180 H (70-110) mg/dL
[2023-11-15 16:07] LABS: Glucose,Whole Blood 160 mg/dL (70-110)
--- NOTE | 2023-11-15 19:40 | CDI ---
Documentation Clarification Form Date: 11/15/2023 07:09:15 PM From: Clementine Rollins RN, CCDS Phone: [phone] Admit Date: 11/09/2023 08:49:00 PM Patient Name: Cata Car Visit Number: [id number] Discharge Date: ATTENTION: The Clinical Documentation Specialists (CDI) and [facility] Coding Staff appreciate your assistance in clarifying documentation. Please respond to the clarification below the line at the bottom and electronically sign. The CDI & [facility] Coding staff will review the response and follow-up if needed. Please note: Queries are made part of the Legal Health Record. If you have any questions, please contact the author of this message via ITS. Dr. Ronni Roche Unspecified CKD is documented in the progress note on 11/1223. Additional clarification regarding the stage of CKD is requested. History/Risk Factors: COPD, diabetes mellitus, Hypertension, Current everyday smoker. Clinical Indicators: 62-year-old female complaint of lower extremity edema. Patient was noted to be hypoxic on admission with an oxygenation of 91%. Creatinine is also elevated at 2.01. 11/10 Cardiology progress notes: Creatinine 1.82. Yesterday it was 2. Creatinine and BUN has improved with diuretics. Creatinine and BUN has improved with diuretics. FABIANA on CKD, renal function is improving. 11/08 BUN 51 CR 2.14 GFR 24 11/08 BUN 52 CR 2.01 GFR 26 11/10 BUN 48 CR 1.82 GFR 29 11/11 BUN 50 CR 1.84 GFR 29 11/12 BUN 58 CR 1.60 GFR 34 11/13 BUN 61 CR 1.65 GFR 33 Treatment: Monitor Strict I/O Monitor daily labs electrolytes and renal profile. Lasix 40 MG IV Once 11/08 then 40 MG Q 8 11/09-11/19 Lasix 40 MG IV Once 11/13 x2 Aldactone 12.5 MG PO DAILY 11/10-11/14 Please clarify the stage of the CKD, if known: [ ] CKD Stage 1 [ ] CKD Stage 2 [ ] CKD Stage 3 [ ] CKD Stage 3a [ ] CKD Stage 3b [ ] CKD Stage 4 [ ] CKD Stage 5 [ ] Other, please specify [ ] Unable to determine Reference: National [employer] Stage 1 eGFR = 90 and kidney damage for =3 months Stage 2 eGFR 60-89 and kidney damage for =3 months Stage 3a eGFR 45-59 and kidney damage for =3 months Stage 3b eGFR 30-44 and kidney damage for =3 months Stage 4 eGFR 15-29 r and kidney damage for =3 months Stage 5 eGFR <15 and kidney damage for =3 months (Template Last revised: September 2023) [facility]
[2023-11-15 20:26] LABS: Glucose,Whole Blood 149 mg/dL (70-110)
--- NOTE | 2023-11-15 21:52 | PN ---
PROGRESS NOTE DATE OF SERVICE: 11/15/2023 CHIEF COMPLAINT: COPD and CHF. HISTORY OF PRESENT ILLNESS: This lady is doing better. Blood sugar is slightly high, but otherwise she is doing well. PHYSICAL EXAMINATION: CHEST: Improved. There are fewer rales and rhonchi. CARDIAC: Normal. ABDOMEN: Soft, and nontender. She still is on nasal O2. IMPRESSION: Exacerbated chronic obstructive pulmonary disease, congestive heart failure, and diabetes. PLAN: Probably home tomorrow. She will require home O2 and to be there when she arrives. MMODL / IJN: [id number] /
[2023-11-16 05:40] LABS: Glucose,Whole Blood 116 mg/dL (70-110)
[2023-11-16] MEDS: predniSONE 10 MG TAB PO SCH (08:39)
[2023-11-16 08:51] VITALS: RESP 16
--- NOTE | 2023-11-16 11:07 | P.PN ---
Subjective Progress Note Date: 11/16/23 History of present illness: This is a 62-year-old female with past medical history of hypertension, diabetes mellitus type 2, COPD, tobacco use and dependence. Patient complains of shortness of breath and swelling that been going on for the past 3 weeks. She thought she could treated herself with diuretics at home but the swelling did not seem to improve. She does have history of having oxygen at home but she states she recently sent it back. She does have a nebulizer which she is not using. She states that Dr. Roche sent her here for an echocardiogram. 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 Patient is status post IV Lasix 40 mg once and continued on 40 mg every 12 hours. EKG sinus rhythm Chest x-ray: Marked enlargement of the cardiac silhouette. Interstitial/alveolar phase pulmonary edema. WBC 7.1, hemoglobin 13.1, platelet count 214. BUN 52, creatinine 2.01. Troponin negative x 3. Total bilirubin 2.2, AST 41, ALT 29, alkaline p hosphatase 117. proBNP 16,000. Sodium 138, potassium 4.0, chloride 97, CO2 27. Home cardiac medications: Amlodipine 10 mg daily, atorvastatin 80 mg at bedtime, Lasix 40 mg twice daily, spironolactone/hydrochlorothiazide 25-25 mg 2 tablets daily. 11/11/2023 Patient is seen and examined at bedside this a.m. BP 128/89, heart rate 95, sinus rhythm on telemetry Creatinine 1.82. Yesterday it was 2. Creatinine and BUN has improved with diuretics Still appears clinically volume overloaded 11/12/2023 Patient reports that she feels better. Her swelling and abdominal distention is coming down. Blood pressure 122/75, heart rate 95, sinus rhythm on telemetry Sodium 139, potassium 3.9, BUN 50, creatinine 1.8. Creatinine was 1.8 yesterday and is: Stabilizing. 1400 cc of urine output yesterday. 11/12 Patient complains of cough and phlegm production. She states she quit smoking 2 weeks ago and said increased phlegm production. She also has wheezing. She has continued lower extremity edema that is mild and improved since she arrived. Blood pressure 102/69, heart rate 81, pulse ox 90% on 4 L and 85% on 3 L. Repeat blood work reveals sodium 136, potassium 4, BUN 58 creatinine 1.6. Yesterday, patient was transitioned off IV Lasix to Bumex oral. 11/13 Patient was doing well yesterday and IV Lasix transition to oral Bumex. Apparently during the night patient developed significant shortness of breath required 15 L of nasal cannula and 1 dose of IV Lasix. She states she is feeling much better now seems to be back to her baseline. She has less lower extremity edema. Blood pressure 119/75, heart rate 86, pulse ox 94% on 6 L nasal cannula. Repeat blood work reveals CBC unremarkable. BUN 61 creatinine 1.65. Potassium 3.8. proBNP 43,600. 11/14 Patient denies having any chest pain or shortness of breath, no lightheadedness or dizziness, no palpitations. Yesterday we transition IV Lasix to oral Bumex and increase Farxiga continue other cardiac medications. Patient did receive 1 dose of IV Lasix yesterday morning. She states her breathing is back to her baseline. Blood pressure 120/79, heart rate 87, pulse ox 92% on 5 L nasal cannula. 11/15 Patient does complain of feeling tired. No chest pain or shortness of breath. She states she has ambulated without any problems. No lower extremity edema. She is anticipating discharge home today. Blood pressure 100/70, heart rate 77, pulse ox 91% on 3 L nasal cannula. Physical examination: HEENT: Head is atraumatic, normocephalic. Pupils equal, round. Sclerae is anicteric. NECK: Has elevated JVD LUNGS: Diffuse wheezing bilateral. No intercostal retractions. HEART: Regular rate and rhythm. No murmur. ABDOMEN: Soft. EXTREMITIES: Bilateral lower extremity edema. No calf tenderness. NEUROLOGICAL: Patient is awake, alert and oriented x3. Assessment: Acute on chronic heart failure, systolic EF 15-20% Etiology of cardiomyopathy unknown at this time. Reports family history of premature cardiac in brother in 30s FABIANA on CKD, renal function is improving COPD exacerbation Ascites Hypertension Diabetes mellitus type 2 COPD Tobacco use and dependence Plan: Continue patient's current cardiac medications Patient is cleared for discharge from cardiology and may follow-up with Dr. Tim in 1 to 2 weeks. Nurse practitioner note has been reviewed, I agree with documented findings and plan of care. Patient was seen and examined. Objective - Vital Signs Vital signs: Vital Signs Temp 97.6 F 11/16/23 08:00 Pulse 77 11/16/23 08:00 Resp 16 11/16/23 08:00 BP 100/70 11/16/23 08:00 Pulse Ox 91 L 11/16/23 08:00 FiO2 Intake & Output 11/15/23 11/16/23 11/16/23 18:59 06:59 18:59 Intake Total 616 Output Total 1100 1750 Balance -484 -1750 Intake: IV 20 Invasive Line 3 20 Oral 596 Output: Urine 1100 1750 Other: Voiding Method Toilet Toilet Incontinent Incontinent - Labs CBC & Chem 7: 11/14/23 07:38 11/14/23 07:38 Labs: Abnormal Lab Results - Last 24 Hours (Table) 11/15/23 11/15/23 11/15/23 Range/Units 11:40 16:02 20:24 POC Glucose (mg/dL) 169 H 160 H 149 H (70-110) mg/dL 11/16/23 Range/Units 05:38 POC Glucose (mg/dL) 116 H (70-110) mg/dL
--- NOTE | 2023-11-16 11:17 | P.PN ---
Subjective Progress Note Date: 11/16/23 Principal diagnosis: Congestive heart failure. This is a pleasant 62-year-old female patient with a 50+ year history of smoking, hypertension, hyperlipidemia, gout. She was recently found to have severely impaired left ventricular systolic function with an ejection fraction of 20%. She had developed increasing lower extremity edema, increasing abdominal fullness over the past 2 weeks. She was directed here to the emergency room yesterday. CT scan of the abdomen pelvis revealed prominent anasarca. Is also noted right pleural effusion and passive right lung base atelectasis. Scant left pleural effusion. This x-ray reveals evidence of pulmonary edema. White count 7.1. Hemoglobin 13.1. Platelets 214. Sodium 138. Potassium 4.0. Bicarb 27. BUN 52. Creatinine 2.01. Troponins are negative x 3. proBNP 16,000. She is seen today in consultation on the [facility] e care unit. She is currently awake and alert in no acute distress. She is dyspneic with conversation. Dyspneic with minimal exertion. Maintaining O2 saturation in the low 90s on 4 L/min per nasal cannula. Afebrile. Hemodynamically stable. Patient was reevaluated today on 11/11/2023, patient is feeling better, breathing a bit easier, less cough less wheezing less shortness of breath, nonetheless continues to have scattered rhonchi and wheezes on physical examination. Remains on 5 L nasal cannula, O2 sats 95% basic metabolic profile is normal today, BUN is 48 creatinine 1.82 improved compared to yesterday's creatinine of 2.01 The patient is seen today November 12, 2023 in follow-up on the regular medical floor. She is currently sitting up at the bedside. Awake and alert in no acute distress. She is maintaining O2 saturations in the 90s on 5 L high flow nasal cannula. She is less bronchospastic and wheezing. Less edema. Sodium 139. Potassium 3.9. Bicarb 33. BUN 50. Creatinine 1.84. Glucose 149. She is continued on DuoNeb inhalations, Symbicort, Solu-Medrol. Remains on IV and oral diuretics. No accurate I & O recorded. Currently on Keflex. Heparin for DVT prophylaxis. Progress note dated November 13, 2023. 62-year-old female, who seen today in room 364. She was admitted with a diagnosis of CHF, and anasarca. She is not receiving any IV fluids. She is on oxygen at 3 L by nasal cannula. She states that she finally quit smoking. Current labs include a sodium 136, potassium 4, chloride 97, CO2 27, anion gap 12, BUN 58, creatinine 1.60. Glucose is 119. Calcium 9.4, with a magnesium of 2.0. She tested negative for C. difficile. Progress note dated November 14, 2023. 62-year-old female seen today in room 364. She was admitted with a diagnosis of CHF, and anasarca, with significant edema. Currently, the patient is on oxygen at 6 L. She is not receiving any IV fluids. The patient did smoke for 30 years, but does not smoke currently. The patient is feeling better. Today's labs include a sodium 138, potassium 3.8, chloride 95, CO2 33, anion gap 10, BUN 61, and creatinine 1.65. Her N-terminal proBNP is 43,600. Glucose is 153. White count of 6, hemoglobin 11.9, hematocrit 38.5, and platelet count is 199,000. Chest x-ray is consistent with fluid overload. Progress note dated November 15, 2023. 62-year-old female, seen today in room 364. Currently, the patient is on oxygen at 4 L by nasal cannula. She is not receiving any IV fluids. The patient's Solu-Medrol is changed to prednisone, 30 mg a day. She is sitting at the side of the bed. She denies any shortness of breath, cough, wheezing, chest tightness, or phlegm production. She is feeling much improved. No new labs today other than a glucose of 180. Yesterday's chest x-ray showed evidence of CHF. Progress note dated November 16, 2023. 62-year-old female seen again in room 364. Currently, the patient is on oxygen at 4 L by nasal cannula. She is not receiving any IV fluids. The patient is doing much better, and feels like her breathing is much improved. She denies any worsening or more severe shortness of breath, cough, wheezing, chest tightness, or phlegm production. She also denies any chest pain or chest discomfort. The only new lab today is a glucose of 116. Objective - Vital Signs Vital signs: Vital Signs Temp 97.6 F 11/16/23 08:00 Pulse 77 11/16/23 08:00 Resp 16 11/16/23 08:00 BP 100/70 11/16/23 08:00 Pulse Ox 91 L 11/16/23 08:00 FiO2 Intake & Output 11/15/23 11/16/23 11/16/23 18:59 06:59 18:59 Intake Total 616 Output Total 1100 1750 Balance -484 -1750 Intake: IV 20 Invasive Line 3 20 Oral 596 Output: Urine 1100 1750 Other: Voiding Method Toilet Toilet Toilet Incontinent Incontinent Incontinent - Exam No acute distress, oriented 3. The patient is currently on 4 L by nasal cannula. She is not having any obvious respiratory distress. HEENT examination is grossly unremarkable. Mucous membranes are moist. No oral lesions. Neck supple. Full range of motion. No adenopathy thyromegaly or neck vein distention. Cardiovascular examination reveals regular rhythm rate. S1-S2 normal. No S3 or S4. No discernible murmur noted. Heart rate is 77 bpm. Lungs reveal minimal basilar crackles. Breath sounds are equal bilaterally. No rhonchi. Minimal expiratory wheezes. Saturations are 94 % on 4 L. Abdomen soft bowel sounds are heard. No masses or tenderness. Extremities are intact. No cyanosis or clubbing. Mild edema is noted. Skin is without rash or lesion. Neurologic examination is brief but nonfocal. - Labs CBC & Chem 7: 11/14/23 07:38 11/14/23 07:38 Labs: Abnormal Lab Results - Last 24 Hours (Table) 11/15/23 11/15/23 11/15/23 Range/Units 11:40 16:02 20:24 POC Glucose (mg/dL) 169 H 160 H 149 H (70-110) mg/dL 11/16/23 Range/Units 05:38 POC Glucose (mg/dL) 116 H (70-110) mg/dL Assessment and Plan Assessment: Acute hypoxemic respiratory failure secondary to an acute exacerbation of systolic congestive heart failure with ejection fraction of 20%. Generalized anasarca. Acute exacerbation of chronic obstructive pulmonary disease. Chronic and ongoing tobacco dependence greater than 45 years. Left lower extremity cellulitis. Diabetes mellitus. Hyperlipidemia. History of gout. Plan: Plan dated November 13, 2023. The patient is seen today in room 364. She continues on 3 L of oxygen. The patient states that she finally quit smoking. Labs, x-rays, medications are reviewed. She continues on DuoNebs, Symbicort, and Solu-Medrol. In addition, she continues on IV Lasix. We will continue to follow the patient, make r ecommendations along the way. The patient's overall prognosis remains guarded. She also continues on Keflex for her cellulitis. Plan dated November 14, 2023. The patient is seen today in room 364. Currently she is on 6 L. Chest x-ray consistent with fluid overload. Labs, x-rays, and all medications are reviewed. The patient feels like she is doing better. She continues on appropriate medications including breathing treatments, and corticosteroids. She also continues on IV Lasix. She is sitting on the edge of the bed, in no distress. The patient is hoping to be able to be discharged soon. She continues on antibiotic for cellulitis. Prognosis is guarded. Plan dated November 15, 2023. The patient was on 6 L yesterday, and has been weaned down to 4 L. She is not receiving any IV fluids. Labs, x-rays, and medications are all reviewed. Her Solu-Medrol is discontinued in favor of prednisone 30 mg a day. We will continue to follow, and make recommendations along the way. She continues on cephalexin for cellulitis. Prognosis is certainly guarded. Plan dated November 16, 2023. The patient has been weaned down to 4 L. She appears very comfortable. Yesterday she was on 6 L. No new labs today. The patient Solu-Medrol is discontinued in favor of prednisone, 30 mg a day. She continues on her antibiotic. Labs, x-rays, and medications are reviewed. The patient's overall prognosis remains guarded. We will continue to follow the patient, make recommendations along the way. Time with Patient: Less than 30
[2023-11-16 11:52] LABS: Glucose,Whole Blood 114 mg/dL (70-110)
[2023-11-16 12:19] VITALS: BP 103/71; PULSE 81; TEMP 97.4
--- NOTE | 2023-11-17 19:21 | CDI ---
Documentation Clarification Form Date: 11/17/2023 07:15:47 PM From: Gabby Mcclain Phone: Admit Date: 11/09/2023 08:49:00 PM Patient Name: Cata Car Visit Number: [id number] Discharge Date: 11/16/2023 04:01:00 PM ATTENTION: The Clinical Documentation Specialists (CDI) and [facility] Coding Staff appreciate your assistance in clarifying documentation. Please respond to the clarification below the line at the bottom and electronically sign. The CDI & [facility] Coding staff will review the response and follow-up if needed. Please note: Queries are made part of the Legal Health Record. If you have any questions, please contact the author of this message via ITS. Dr. Ian Eaton Cellulitis is documented per Progress Note 3/9. Additional clarification regarding the type of cellulitis is requested. History/risk factors: 62yo F, ACSHF, HTN, AHRF, AECOPD w home O2 (noncompliance), ascites, DMII w hyperglycemia, former smoker (quit 5 days ago), FABIANA on CKD Clinical Indicators: cellulitis to the left lower extremity; Lower extremities areedematous and weeping. Treatment: started on oral Keflex Please clarify the etiology of the cellulitis, if known: [ x ] Cellulitis is a diabetic skin complication [ ] Cellulitis is not a diabetic skin complication [ ] Other, please specify: [ ] Unable to determine (Template Last Revised: September 2022) MTDD
--- NOTE | 2023-11-19 22:58 | DS ---
DISCHARGE SUMMARY CHIEF COMPLAINT: Difficulty breathing. HISTORY OF PRESENT ILLNESS AND PHYSICAL EXAMINATION: Details of this lady's history and physical can be found in the initial workup. LABORATORY STUDIES: While she was in the hospital, she had laboratory studies, details of which can be found in the laboratory section of her chart. COURSE IN THE HOSPITAL: After admission, she was placed on bedrest and started on intravenous fluids and started on management of her COPD and congestive heart failure and she slowly improved. Chest is clear and breathing improved and she was doing well enough and was felt that she could go home and follow up in the office. She was set up with home O2. She will be seen in the office in several days. FINAL DIAGNOSES: 1. Acute congestive heart failure. 2. Exacerbation of chronic obstructive pulmonary disease. OPERATIONS: None. CONSULTATIONS: Pulmonology and Cardiology. She is improved. MMODL / IJN: [id number] /
--- NOTE | 2023-11-19 23:43 | PN ---
PROGRESS NOTE DATE OF SERVICE: 11/16/2023 CHIEF COMPLAINT: Congestive heart failure and COPD. HISTORY OF PRESENT ILLNESS: This lady is feeling a bit better and chest is slowly improving. Pulmonology feels she may be able to go home soon. PHYSICAL EXAM: CHEST: Breath sounds are better. There are fewer rales. CARDIAC: Normal. ABDOMEN: Protuberant. IMPRESSION: 1. Acute congestive heart failure. 2. Chronic obstructive pulmonary disease. PLAN: Probably home in the next day or 2. MMODL / IJN: [id number] /
== END 2023-11-16 16:01 | disposition home health service (06) | DRG 291 ==
LOC: EC 18:55 → 4SSUR 20:49 → 3SCARD 11-10 15:40
PROVIDERS: ADMIT Family Medicine; ATTEND Family Medicine
PROC: 5A0935A Assistance with Respiratory Ventilation, Less than 24 Consecutive Hours, High Flow/Velocity Cannula (ICD-10-PCS; principal; 2023-11-12)
DX: I13.0 Hypertensive heart and chronic kidney disease with heart failure and stage 1 through stage 4 chronic kidney disease, or unspecified chronic kidney disease (principal); I33.0 Acute and subacute infective endocarditis; I50.23 Acute on chronic systolic (congestive) heart failure; J96.01 Acute respiratory failure with hypoxia; N17.9 Acute kidney failure, unspecified; R18.8 Other ascites; L03.116 Cellulitis of left lower limb; J44.1 Chronic obstructive pulmonary disease with (acute) exacerbation; E11.22 Type 2 diabetes mellitus with diabetic chronic kidney disease; I42.9 Cardiomyopathy, unspecified; E11.65 Type 2 diabetes mellitus with hyperglycemia; E11.628 Type 2 diabetes mellitus with other skin complications; Z99.81 Dependence on supplemental oxygen; I07.1 Rheumatic tricuspid insufficiency; N18.9 Chronic kidney disease, unspecified; E78.5 Hyperlipidemia, unspecified; T41.5X6A Underdosing of therapeutic gases, initial encounter; M10.9 Gout, unspecified; Z91.128 Patient's intentional underdosing of medication regimen for other reason; Z79.51 Long term (current) use of inhaled steroids; Z79.84 Long term (current) use of oral hypoglycemic drugs; Z88.8 Allergy status to other drugs, medicaments and biological substances; Z79.899 Other long term (current) drug therapy; Z87.891 Personal history of nicotine dependence; Z82.49 Family history of ischemic heart disease and other diseases of the circulatory system
CPT/HCPCS: 36415; 71045; 80048; 80053; 83036; 83735; 83880; 84145; 84484; 85025; 85027; 85610; 85730; 87324; 93005; 94640; 94760; 96374; 99285

== ENCOUNTER → 2023-11-09 | Outpatient (CLI) | payer OTHER ==
[2023-11-09 17:24] LABS: African American GFR (CKD) 28 (>60 ml/min/1.73 sqM); Blood Urea Nitrogen 51 mg/dL (7-17); Non-African American GFR(CKD) 24 (>60 ml/min/1.73 sqM)
--- NOTE | 2023-11-09 21:00 | CT ---
EXAMINATION TYPE: CT ABDOMEN PELVIS WO CON DATE OF EXAM: 11/09/2023 HISTORY: Abdominal distention TECHNIQUE: CT scan of the abdomen and pelvis is performed without oral or IV contrast. CT DLP: 1365.4 mGycm. Automated Exposure Control for Dose Reduction was Utilized. COMPARISON: No prior studies on PACS. FINDINGS: LUNG BASES: Prominent right pleural effusion with passive right lung base atelectasis. Scant left ple ural effusion noted. No pericardial effusion. There is moderate marked cardiomegaly with panchamber enlargement, and with prominent left and right coronary calcifications. Aortic valve calcifications also noted. LIVER/GB: No significant abnormality is appreciated. PANCREAS: No significant abnormality is seen. SPLEEN: No significant abnormality is seen. ADRENALS: No nodules. KIDNEYS: No hydronephrosis/hydroureter. PERITONEAL CAVITY: There is a prominent volume of peritoneal fluid throughout the abdomen and pelvis. BOWEL: Oral radiographic contrast opacifies distal jejunal and proximal ileal loops. There is no garry l dilation or definite focal inflammation is seen. PELVIC VISCERA: No gross abnormality seen. LYMPH NODES: No greater than 1 cm abdominal or pelvic lymph nodes are appreciated. OSSEOUS STRUCTURES: No significant abnormality is seen. SOFT TISSUES: There is a prominent volume of edema seen diffusely throughout the entire visualized cu taneous adipose compartment on every image of the abdomen and pelvis. Limitation of the study: Without IV contrast there is limited CT sensitivity for focal visceral lesions, intraluminal filling defects, intravascular pathology. IMPRESSION: Prominent anasarca.
--- NOTE | 2023-11-10 09:01 | CA ---
Transthoracic Echo Report Name: Cata Car Age: 62 Gender: F : 1960 Exam Date: 11/09/2023 17:54 Exam Location: [facility] Ht (in): 61 Wt (lb): 190 Ordering Physician: Ronni Roche MD Attending/Referring Phys: Kaley MONIQUE Heart Coordinator Symone. Mi'steffen RDCS Procedure CPT: Indications: R14.0 ABDOMINAL DISTENSION (GASEOUS) Cardiac Hx: Technical Quality: Contrast 1: Total Dose (mL): Contrast 2: Total Dose (mL): MEASUREMENTS (Male / Female) Normal Values 2D ECHO LV Diastolic Diameter PLAX 6.5 cm 4.2 - 5.9 / 3.9 - 5.3 cm LV Systolic Diameter PLAX 6.9 cm IVS Diastolic Thickness 1.1 cm 0.6 - 1.0 / 0.6 - 0.9 cm LVPW Diastolic Thickness 0.9 cm 0.6 - 1.0 / 0.6 - 0.9 cm LV Relative Wall Thickness 0.3 LVOT Diameter 2.0 cm Aortic Root Diameter 2.6 cm LA Systolic Diameter LX 6.0 cm 3.0 - 4.0 / 2.7 - 3.8 cm DOPPLER AV Peak Velocity 106.7 cm/s AV Peak Gradient 4.6 mmHg AV Mean Velocity 72.4 cm/s AV Mean Gradient 2.3 mmHg AV Velocity Time Integral 16.0 cm LVOT Peak Velocity 44.7 cm/s LVOT Peak Gradient 0.8 mmHg LVOT Velocity Time Integral 9.4 cm LVOT Stroke Volume 29.4 cm??? LVOT Stroke Volume Index 15.9 ml/m??? AV Area Cont Eq vti 1.8 cm??? AV Area Cont Eq pk 1.3 cm??? MR Peak Velocity 459.4 cm/s MR Peak Gradient 84.4 mmHg Mitral E Point Velocity 90.2 cm/s Mitral A Point Velocity 68.0 cm/s Mitral E to A Ratio 1.3 MV Deceleration Time 143.2 ms MV E' Velocity 4.0 cm/s Mitral E to MV E' Ratio 22.7 TR Peak Velocity 215.3 cm/s TR Peak Gradient 18.5 mmHg PV Peak Velocity 59.2 cm/s PV Peak Gradient 1.4 mmHg FINDINGS Left Ventricle Mildly increased septal wall thickness. Severely increased left ventricular diastolic diameter. Left ventricular ejection fraction is estimated at 20%. Severe global left ventricular hypokinesis. Right Ventricle Moderate Right ventricular dilatation. Unable to estimate the right ventricular systolic pressure. Right Atrium Normal right atrial size. Left Atrium Severely increased left atrial diameter. Mitral Valve Moderate mitral regurgitation. Aortic Valve Trileaflet aortic valve. Thickened aortic valve without stenosis. Tricuspid Valve Moderate tricuspid regurgitation. Pulmonic Valve [id number] pulmonic regurgitation. Pericardium No pericardial effusion. Aorta Normal size aortic root. CONCLUSIONS Severe LV systolic dysfunction with diffuse global hypokinesis Moderate mitral regurgitation Moderate tricuspid regurgitation Previewed by: Dr. Zachairah Quintanilla MD (Electronically Signed) Final Date: 10 November 2023 09:00
== END | disposition home or self-care (01) ==
LOC: RADCTMAIN 16:21
PROVIDERS: ATTEND Family Medicine
DX: R14.0 Abdominal distension (gaseous) (principal); R06.02 Shortness of breath; R79.89 Other specified abnormal findings of blood chemistry; R60.1 Generalized edema
CPT/HCPCS: 36415; 74176; 82565; 84520; 93306

== ENCOUNTER 2024-01-18 16:23 | Inpatient (IN) | payer MEDICARE, OTHER ==
[2024-01-18] MEDS: SODIUM CHLORIDE 0.9% 1,000 ML IV STA ×2 (16:51→19:00)
--- NOTE | 2024-01-18 16:54 | ED ---
General Adult HPI - General Chief complaint: Abdominal Pain Stated complaint: diarrhea Time Seen by Provider: 01/18/24 16:43 Source: patient Mode of arrival: ambulatory Limitations: no limitations - History of Present Illness Initial comments: Dictation was produced using mCASH dictation software. please excuse any grammatical, word or spelling errors. Chief Complaint: 63-year-old female presents to the emergency department diarrhea History of Present Illness: Patient 63-year-old female she has multiple comorbidities including COPD, diabetes and hypertension. Patient states she had diarrhea for the last 2 days. She denies any abdominal pain. No nausea or vomiting. She states that the diet diarrhea is clear. She takes blood pressure medications that are managed. Denies any dizziness. Denies blood or bilious diarrhea. No recent travel. She does not handle livestock. She had [place] fried chicken multiple times recently. She is not sure if she had been food poisoning. The ROS documented in this emergency department record has been reviewed and confirmed by me. Those systems with pertinent positive or negative responses have been documented in the HPI. All other systems are other negative and/or noncontributory. - Related Data Home Medications Medication Instructions Recorded Confirmed ALPRAZolam [Xanax] 1 mg PO TID 11/09/23 01/18/24 Albuterol Inhaler [Ventolin Hfa 2 puff INHALATION RT-QID PRN 11/09/23 01/18/24 Inhaler] Atorvastatin [Lipitor] 80 mg PO HS 11/09/23 01/18/24 Ergocalciferol (Vitamin D2) 1,250 mcg PO SA 11/09/23 01/18/24 [Drisdol (50,000 Iu)] Furosemide [Lasix] 40 mg PO BID 11/09/23 01/18/24 Montelukast [Singulair] 10 mg PO DAILY 11/09/23 01/18/24 Ondansetron [Zofran] 4 mg PO Q12HR PRN 11/09/23 01/18/24 Spironolactone-Hctz 25-25Mg 2 tab PO DAILY 11/09/23 01/18/24 [Aldactazide 25-25 MG] allopurinoL [Zyloprim] 100 mg PO DAILY 11/09/23 01/18/24 amLODIPine [Norvasc] 10 mg PO DAILY 11/09/23 01/18/24 rOPINIRole HCL [Requip] 0.25 mg PO HS 11/09/23 01/18/24 metFORMIN HCL [Glucophage] 500 mg PO DAILY 11/10/23 01/18/24 Budesonide/Formoterol Fumarate 2 puff INHALATION RT-BID 01/18/24 01/18/24 [Breyna 160-4.5 Mcg Inhaler] Diclofenac Sodium [Voltaren] 75 mg PO BID PRN 01/18/24 01/18/24 Dicyclomine [Bentyl] 10 mg PO TID PRN 01/18/24 01/18/24 Diphenoxylate HCl/Atropine 1 - 2 tab PO TID PRN 01/18/24 01/18/24 [Lomotil 2.5-0.025 mg Tablet] Famotidine [Pepcid] 20 mg PO BID 01/18/24 01/18/24 Ipratropium-Albuterol Nebulize 3 ml INHALATION RT-QID PRN 01/18/24 01/18/24 [Duoneb 0.5 mg-3 mg/3 ml Soln] Tiotropium [place] [Spiriva] 1 puff INHALATION RT-DAILY 01/18/24 01/18/24 buPROPion HCL [buPROPion HCL SR] 100 mg PO DAILY 01/18/24 01/18/24 Previous Rx's Medication Instructions Recorded Metoprolol Succinate (ER) [Toprol 25 mg PO DAILY #30 tab 11/16/23 XL] Allergies Allergy/AdvReac Type Severity Reaction Status Date / Time LESLIE Inhibitors Allergy Unknown Verified 11/09/23 19:35 Review of Systems ROS Statement: Those systems with pertinent positive or pertinent negative responses have been documented in the HPI. ROS Other: All systems not noted in ROS Statement are negative. Past Medical History Past Medical History: COPD, Diabetes Mellitus, Hypertension History of Any Multi-Drug Resistant Organisms: None Reported Past Surgical History: No Surgical Hx Reported Past Psychological History: No Psychological Hx Reported Smoking Status: Current every day smoker Past Alcohol Use History: None Reported Past Drug Use History: None Reported General Exam - General Exam Comments Initial Comments: PHYSICAL EXAM: General Impression: Alert and oriented x3, not in acute distress HEENT: Normocephalic atraumatic, extra-ocular movements intact, pupils equal and reactive to light bilaterally, mucous membranes moist. Cardiovascular: Heart regular rate and rhythm Chest: Able to complete full sentences, no retractions, no tachypnea Abdomen: abdomen soft, non-tender, non-distended, no organomegaly Musculoskeletal: Pulses present and equal in all extremities, no peripheral edema Motor: no focal deficits noted Neurological: CN II-XII grossly intact, no focal motor or sensory deficits noted Skin: Intact with no visualized rashes Psych: Normal affect and mood Limitations: no limitations Course Vital Signs 01/18/24 01/18/24 01/18/24 16:33 16:45 16:50 Temperature 97.4 F L Pulse Rate 78 79 Respiratory 18 18 16 Rate Blood Pressure 62/34 99/44 82/38 O2 Sat by Pulse 93 L 93 L Oximetry 01/18/24 01/18/24 01/18/24 17:00 18:05 18:30 Temperature Pulse Rate 75 71 78 Respiratory 16 16 18 Rate Blood Pressure 90/49 105/85 84/63 O2 Sat by Pulse 100 Oximetry 01/18/24 01/18/24 18:51 19:00 Temperature Pulse Rate 81 Respiratory 18 Rate Blood Pressure 76/44 O2 Sat by Pulse Oximetry - Reevaluation(s) Reevaluation #1: 01/18/24 19:14 Case discussed with final rail cutter who requested the patient be given sodium bicarbonate. She agrees with patient being given hyper-K cocktail. At this point no definitive plans for hemodialysis at this time. Case also discussed with practical nursing faculty who is agreeable for ICU admission given patient's marginal blood pressures and hyperkalemia. Reevaluation #2: 01/18/24 19:17 Patient wanted to leave AGAINST MEDICAL ADVICE however she is told how abnormal her labs are and was agreeable. EKG Findings - EKG Comments: EKG Findings:: My EKG interpretation: Ventricular rate 75, sinus rhythm,. 188, QRS 134, QTc 459. No OK prolongation, no QTC prolongation, no ST or T-wave changes noted. EG compared to 11/09/2023 showing no changes. Overall, this EKG is unremarkable Medical Decision Making - Medical Decision Making Was pt. sent in by a medical professional or institution (, PA, G[employer] INSPECTOR, urgent care, hospital, or alf...) When possible be specific @ -No Did you speak to anyone other than the patient for history (EMS, parent, family, police, friend...)? What history was obtained from this source @ -No Did you review nursing and triage notes (agree or disagree)? Why? @ -I reviewed and agree with nursing and triage notes Were old charts reviewed (outside hosp., previous admission, EMS record, old EKG, old radiological studies, urgent care reports/EKG's, alf records)? Report findings @ -No old charts were reviewed Differential Diagnosis (chest pain, altered mental status, abdominal pain women, abdominal pain men, vaginal bleeding, musculoskeletal, weakness, fever, dyspnea, syncope, headache, dizziness, GI bleed, back pain, seizure, CVA, palpatations, mental health)? @ -Facial weakness EKG interpreted by me (3pts min.). @ -See above X-rays interpreted by me (1pt min.). @ -None done CT interpreted by me (1pt min.). @ -None done U/S interpreted by me (1pt. min.). @ -None done What testing was considered but not performed or refused? (CT, X-rays, U/S, labs)? Why? @ -None What meds were considered but not given or refused? Why? @ -None Did you discuss the management of the patient with other professionals (professionals i.e. , PA, [employer] INSPECTOR, lab, RT, psych nurse, social worker delinquency prevention, igniter assembler, teacher, correction officer head, case reviewer)? Give summary @ -See above Was smoking cessation discussed for >3mins.? @ -No Was critical care preformed (if so, how long)? @ -33 minutes, yes Were there social determinants of health that impacted care today? How? (H omelessness, low income, unemployed, alcoholism, drug addiction, transportation, low edu. Level, literacy, decrease access to med. care, fpc, rehab)? @ -No Was there de-escalation of care discussed even if they declined (Discuss DNR or withdrawal of care, Hospice)? DNR status @ -No What co-morbidities impacted this encounter? (DM, HTN, Smoking, COPD, CAD, Cancer, CVA, ARF, Chemo, Hep., AIDS, mental health diagnosis, sleep apnea, morbid obesity)? @ -None Was patient admitted / discharged? Hospital course, mention meds given and route, prescriptions, significant lab abnormalities, going to OR and other pertinent info. @ -63-year-old female presents emergency department chief complaint of diarrhea. Initial blood pressure was 62/34. Patient repeat blood pressure was 99/44. Patient little dry at the bedside however besides diarrhea has no other acute complaints. Patient no acute distress. Laboratory evaluation obtained. Leukocytosis 23.3, metabolic panel shows creatinine of 7.05 and BUN of 215. Potassium critically elevated 7.6. She does not appear to have AD EKG findings to suggest hyperkalemia induced cardiac toxicity. Nonetheless she is given hyperkalemia cocktail. Patient given large amounts of IV fluids. Case discussed with final rail cutter recommends bicarbonate drip. She is aware of patient and would like to be notified of serial potassium levels. Patient also discussed with practical nursing faculty for ICU admission. Undiagnosed new problem with uncertain prognosis? @ -No Drug Therapy requiring intensive monitoring for toxicity (Heparin, Nitro, Insulin, Cardizem)? @ -No Were any procedures done? @ -No Diagnosis/symptom? Acute, or Chronic, or Acute on Chronic? Uncomplicated (without systemic symptoms) or Complicated (systemic symptoms)? @ -Hyperkalemia, acute kidney injury Side effects of treatment? @ -No Exacerbation, Progression, or Severe Exacerbation? @ -No Poses a threat to life or bodily function? How? (Chest pain, USA, OR, pneumonia, PE, COPD, DKA, ARF, appy, cholecystitis, CVA, Diverticulitis, Homicidal, Suicidal, threat to staff... and all critical care pts) @ -yes - Lab Data Result diagrams: 01/18/24 16:50 01/18/24 16:50 Lab Results 01/18/24 01/18/24 01/18/24 Range/Units 16:50 16:50 16:50 WBC 23.3 H (3.8-10.6) k/uL RBC 5.62 H (3.80-5.40) m/uL Hgb 15.2 D (11.4-16.0) gm/dL Hct 50.1 H (34.0-46.0) % MCV 89.1 (80.0-100.0) fL MCH 27.0 (25.0-35.0) pg MCHC 30.3 L (31.0-37.0) g/dL RDW 18.7 H (11.5-15.5) % Plt Count 315 (150-450) k/uL MPV 10.1 Neutrophils % (Manual) 87 % Lymphocytes % (Manual) 7 % Monocytes % (Manual) 6 % Neutrophils # (Manual) 20.27 H (1.3-7.7) k/uL Lymphocytes # (Manual) 1.63 (1.0-4.8) k/uL Monocytes # (Manual) 1.40 H (0-1.0) k/uL Nucleated RBCs 0 (0-0) /100 WBC Manual Slide Review Performed Hypochromasia Slight Poikilocytosis (manual Present Anisocytosis Slight Anisocytosis (manual) Present PT 13.2 H (10.0-12.5) sec INR 1.3 H (<1.2) APTT 29.7 (22.0-30.0) sec Sodium 134 L (137-145) mmol/L Potassium 7.6 H* (3.5-5.1) mmol/L Chloride 93 L (98-107) mmol/L Carbon Dioxide 13 L (22-30) mmol/L Anion Gap 28 mmol/L BUN 215 H* (7-17) mg/dL Creatinine 7.05 H* (0.52-1.04) mg/dL Est GFR (CKD-EPI)AfAm 6 (>60 ml/min/1.73 sqM) Est GFR (CKD-EPI)NonAf 6 (>60 ml/min/1.73 sqM) Glucose 115 H (74-99) mg/dL Plasma Lactic Acid James (0.7-2.0) mmol/L Calcium 8.0 L (8.4-10.2) mg/dL Magnesium 2.1 (1.6-2.3) mg/dL Total Bilirubin 1.1 (0.2-1.3) mg/dL AST 38 H (14-36) U/L ALT 27 (4-34) U/L Alkaline Phosphatase 190 H (38-126) U/L Total Protein 7.0 (6.3-8.2) g/dL Albumin 3.5 (3.5-5.0) g/dL 01/18/24 Range/Units 17:03 WBC (3.8-10.6) k/uL RBC (3.80-5.40) m/uL Hgb (11.4-16.0) gm/dL Hct (34.0-46.0) % MCV (80.0-100.0) fL MCH (25.0-35.0) pg MCHC (31.0-37.0) g/dL RDW (11.5-15.5) % Plt Count (150-450) k/uL MPV Neutrophils % (Manual) % Lymphocytes % (Manual) % Monocytes % (Manual) % Neutrophils # (Manual) (1.3-7.7) k/uL Lymphocytes # (Manual) (1.0-4.8) k/uL Monocytes # (Manual) (0-1.0) k/uL Nucleated RBCs (0-0) /100 WBC Manual Slide Review Hypochromasia Poikilocytosis (manual Anisocytosis Anisocytosis (manual) PT (10.0-12.5) sec INR (<1.2) APTT (22.0-30.0) sec Sodium (137-145) mmol/L Potassium (3.5-5.1) mmol/L Chloride (98-107) mmol/L Carbon Dioxide (22-30) mmol/L Anion Gap mmol/L BUN (7-17) mg/dL Creatinine (0.52-1.04) mg/dL Est GFR (CKD-EPI)AfAm (>60 ml/min/1.73 sqM) Est GFR (CKD-EPI)NonAf (>60 ml/min/1.73 sqM) Glucose (74-99) mg/dL Plasma Lactic Acid James 1.5 (0.7-2.0) mmol/L Calcium (8.4-10.2) mg/dL Magnesium (1.6-2.3) mg/dL Total Bilirubin (0.2-1.3) mg/dL AST (14-36) U/L ALT (4-34) U/L Alkaline Phosphatase (38-126) U/L Total Protein (6.3-8.2) g/dL Albumin (3.5-5.0) g/dL Disposition Clinical Impression: Hyperkalemia Disposition: ADMITTED IP TO THIS [facility] Condition: Critical Referrals: Ronni Roche MD [Primary Care Provider] - 1-2 days Decision Time: 19:18
[2024-01-18 17:30] LABS: INR 1.3 (<1.2); Partial Thromboplastin Time 29.7 sec (22.0-30.0); Prothrombin Time 13.2 sec (10.0-12.5)
[2024-01-18 17:33] LABS: Anisocytosis Slight; HCT 50.1 % (34.0-46.0); Hypochromasia Slight; MCHC 30.3 g/dL (31.0-37.0); MCV 89.1 fL (80.0-100.0); Mean Platelet Volume 10.1; Platelet Count 315 k/uL (150-450); RBC 5.62 m/uL (3.80-5.40); RDW 18.7 % (11.5-15.5); WBC 23.3 k/uL (3.8-10.6)
[2024-01-18 17:43] LABS: HGB 15.2 gm/dL (11.4-16.0)
[2024-01-18 18:12] LABS: ALT 27 U/L (4-34); AST 38 U/L (14-36); Albumin 3.5 g/dL (3.5-5.0); Alkaline Phosphatase 190 U/L (38-126); Anion Gap 28 mmol/L; Carbon Dioxide 13 mmol/L (22-30); Chloride 93 mmol/L (98-107); Glucose 115 mg/dL (74-99); Magnesium 2.1 mg/dL (1.6-2.3); Sodium 134 mmol/L (137-145); Total Bilirubin 1.1 mg/dL (0.2-1.3)
[2024-01-18 18:18] LABS: African American GFR (CKD) 6 (>60 ml/min/1.73 sqM); Non-African American GFR(CKD) 6 (>60 ml/min/1.73 sqM)
[2024-01-18 18:38] LABS: Blood Urea Nitrogen 215 mg/dL (7-17); Potassium 7.6 mmol/L (3.5-5.1)
[2024-01-18 18:48] LABS: Lymphocytes # (M) 1.63 k/uL (1.0-4.8); Neutrophils # (M) 20.27 k/uL (1.3-7.7); Neutrophils % (M) 87 %; Nucleated Red Blood Cells 0 /100 WBC (0-0); Total Cells Counted 100
[2024-01-18 18:51] LABS: Anisocytosis (M) Present; Poikilocytosis (M) Present
[2024-01-18] MEDS: INSULIN REGULAR 100 UNIT/ML VIAL (IV) IV ONE (18:57)
[2024-01-18] MEDS: SODIUM BICARB 8.4% 50 ML SYR (1 MEQ/ML) IV ONE (18:59)
[2024-01-18] MEDS: DEXTROSE 50% SYRINGE 50 ML IVP ONE (18:59)
[2024-01-18] MEDS: SODIUM ZIRCONIUM CYCLOSILICATE 10 GM PACKET PO ONE (19:00)
[2024-01-18] MEDS: CALCIUM GLUCONATE IN NACL 1 GM in SALINE 1 100ML.BAG IVPB ONE (19:05)
[2024-01-18] MEDS ORDERED: NALOXONE 0.4 MG/ML 1 ML VIAL IV PRN (19:12)
[2024-01-18] MEDS: ALBUTEROL NEB (CONC) 2.5 MG/0.5 ML INHALATION ONE (19:27)
[2024-01-18] MEDS: SODIUM CHLORIDE 0.9% 1,000 ML IV SCH (19:39)
[2024-01-18] MEDS: NOREPINEPHRINE 4 MG in SODIUM CHLORIDE 0.9% 250 ML IV ONE (19:39)
--- NOTE | 2024-01-18 20:04 | US ---
EXAMINATION TYPE: US kidneys/renal and bladder DATE OF EXAM: 01/18/2024 COMPARISON: NONE CLINICAL INDICATION: Female, 63 years old with history of flank pain; flank pain EXAM MEASUREMENTS: Right Kidney: 10.9 x 4.7 x 4.8 cm Left Kidney: 8.9 x 4.6 x 4.2 cm Right Kidney: No hydronephrosis or calcifications or masses. Left Kidney: No hydronephrosis or calcifications or masses. Bladder: wnl Bilateral Jets seen: Not visualized during the examination. IMPRESSION: No acute process.
[2024-01-18 20:06] LABS: Glucose,Whole Blood 184 mg/dL (70-110)
[2024-01-18] MEDS: DEXTROSE 5% IN WATER 1,000 ML with SODIUM BICARB (1 MEQ/ML) 150 ML IV SCH (20:36)
[2024-01-18 20:45] LABS: Anion Gap 27 mmol/L; Calcium 7.5 mg/dL (8.4-10.2); Chloride 102 mmol/L (98-107); Glucose 140 mg/dL (74-99); Sodium 134 mmol/L (137-145)
[2024-01-18 20:50] LABS: African American GFR (CKD) 8 (>60 ml/min/1.73 sqM); Non-African American GFR(CKD) 7 (>60 ml/min/1.73 sqM)
[2024-01-18 20:55] LABS: Carbon Dioxide 5 mmol/L (22-30)
[2024-01-18 20:57] LABS: Potassium 6.7 mmol/L (3.5-5.1)
[2024-01-18 22:54] LABS: Anion Gap 24 mmol/L; Calcium 6.9 mg/dL (8.4-10.2); Carbon Dioxide 12 mmol/L (22-30); Chloride 98 mmol/L (98-107); Glucose 143 mg/dL (74-99); Sodium 134 mmol/L (137-145)
[2024-01-18 23:00] LABS: African American GFR (CKD) 8 (>60 ml/min/1.73 sqM); Non-African American GFR(CKD) 7 (>60 ml/min/1.73 sqM)
[2024-01-18 23:09] LABS: Potassium 6.2 mmol/L (3.5-5.1)
[2024-01-18 23:11] LABS: Blood Urea Nitrogen 215 mg/dL (7-17)
[2024-01-18] MEDS: ALPRAZolam 0.25 MG TAB PO PRN (23:26)
[2024-01-18 23:58] LABS: Amorphous Sediment,Urine Occasional /hpf; Appearance,Urine Clear (Clear); Bilirubin,Urine Negative (Negative); Blood,Urine Negative (Negative); Color,Urine Yellow; Glucose,Urine (UA) Negative (Negative); Hyaline Casts,Urine 47 /lpf (0-2); Ketones,Urine Negative (Negative); Leukocyte Esterase,Urine Negative (Negative); Mucus,Urine Occasional /hpf; Nitrite,Urine Negative (Negative); Protein,Urine 1+ (Negative); RBC,Urine 1 /hpf (0-5); Specific Gravity,Urine 1.016 (1.001-1.035); Squamous Epithelial Cell,Urine 2 /hpf (0-4); Urobilinogen,Urine <2.0 mg/dL (<2.0); WBC,Urine 2 /hpf (0-5)
[2024-01-19] MEDS: SODIUM BICARB 8.4% 50 ML SYR (1 MEQ/ML) IV STA ×2 (01:46→04:23)
[2024-01-19 03:07] LABS: Anisocytosis Slight; HCT 44.5 % (34.0-46.0); HGB 13.4 gm/dL (11.4-16.0); Hypochromasia Slight; MCH 27.1 pg (25.0-35.0); MCV 90.3 fL (80.0-100.0); Platelet Count 240 k/uL (150-450); RBC 4.93 m/uL (3.80-5.40); RDW 19.1 % (11.5-15.5)
[2024-01-19 03:15] LABS: Anion Gap 24 mmol/L; Carbon Dioxide 14 mmol/L (22-30); Chloride 97 mmol/L (98-107); Glucose 174 mg/dL (74-99); Sodium 135 mmol/L (137-145)
[2024-01-19 03:21] LABS: African American GFR (CKD) 8 (>60 ml/min/1.73 sqM); Non-African American GFR(CKD) 7 (>60 ml/min/1.73 sqM)
[2024-01-19 03:31] LABS: Potassium 7.3 mmol/L (3.5-5.1)
[2024-01-19 03:32] LABS: Blood Urea Nitrogen 225 mg/dL (7-17); Calcium 6.4 mg/dL (8.4-10.2)
[2024-01-19] MEDS: CALCIUM GLUCONATE IN NACL 1 GM in SALINE 1 100ML.BAG IVPB ONE (04:22)
[2024-01-19] MEDS: SODIUM ZIRCONIUM CYCLOSILICATE 10 GM PACKET PO ONE (04:23)
[2024-01-19] MEDS: INSULIN REGULAR 100 UNIT/ML VIAL (IV) IV ONE (04:23)
[2024-01-19] MEDS: SODIUM BICARB 8.4% 50 ML SYR (1 MEQ/ML) ONE (04:43)
[2024-01-19 05:25] LABS: Band Neutrophils % 27 %; Eosinophils # (M) 0.18 k/uL (0-0.7); Lymphocytes # (M) 0.91 k/uL (1.0-4.8); Monocytes # (M) 1.63 k/uL (0-1.0); Neutrophils % (M) 60 %; Nucleated Red Blood Cells 2 /100 WBC (0-0); Total Cells Counted 200; WBC 18.1 k/uL (3.8-10.6)
[2024-01-19 05:26] LABS: Anisocytosis (M) Present; Crenated RBC Present; Ovalocytes Present; Target Cells Present
[2024-01-19 06:32] LABS: Anion Gap 22 mmol/L; Calcium 6.8 mg/dL (8.4-10.2); Carbon Dioxide 19 mmol/L (22-30); Chloride 97 mmol/L (98-107); Glucose 129 mg/dL (74-99); Potassium 5.2 mmol/L (3.5-5.1); Sodium 138 mmol/L (137-145)
[2024-01-19 06:40] LABS: African American GFR (CKD) 9 (>60 ml/min/1.73 sqM); Non-African American GFR(CKD) 8 (>60 ml/min/1.73 sqM)
[2024-01-19 06:44] LABS: Blood Urea Nitrogen 212 mg/dL (7-17)
--- NOTE | 2024-01-19 09:17 | P.CRDCN ---
History of Present Illness Consult date: 01/19/24 History of present illness: - . HPI: This is a 63-year-old lady who is a very poor historian. She has multiple comorbidities including smoking COPD type 2 diabetes hypertension hyperlipidemia. She came into the emergency room with the diarrhea lasting 2 to 3 days she thought it may be food poisoning. She was quite weak when she arrived. Laboratory data suggested hyperkalemia and this has been addressed potassium level is now 5.3 or so. I was asked to see her for an abnormal EKG. EKG actually reveals a sinus mechanism with IVCD and no acute changes. Patient has developed acute kidney injury and hyperkalemia as the main issues. She does not have any chest pain denies any shortness of breath complains of generalized weakness. She is resting comfortably at the time of my evaluation on a small dose of Levophed for blood pressure support which is being weaned. She is in a sinus rhythm. Decent urine output. RELEVANT PAST MEDICAL HISTORY: Remarkable for type 2 diabetes hypertension hyperlipidemia and also COPD. Patient is a current smoker does not use any recreational drugs. This is part of the chart. MEDICATIONS: This includes inhalers Lipitor Lasix Singulair amlodipine metoprolol succinate Glucophage Pepcid ALLERGIES: LESLIE inhibitors is listed as an allergy. REVIEW OF SYSTEMS: Unable to obtain a meaningful review of systems but patient denies chest pain or shortness of breath. PHYSICIAL EXAM: Vitals are stable blood pressure is 96 systolic on a small dose of Levophed no JVD S1-S2 heard normally short systolic murmur left sternal bord er lungs reveal bilateral decent air entry abdomen is soft lower extremities reveal no edema diminished pulses Central nervous system detailed exam not performed but no focal deficits. IMPRESSION: 1. Severe acute kidney injury with hyperkalemia. Patient's creatinine in November of this year was 1.65 now it is more than 6.0. 2. Diarrhea and dehydration. 3. Type 2 diabetes mellitus. 4. Hypertension. 5. Smoking and COPD. RECOMMENDATIONS: From a cardiac standpoint I would recommend that we continue her hydration, would recommend a portable echo to assess LV function. I am also recommending that we will resume beta-sammi continue to wean off the Levophed. Patient may benefit from hemodialysis. Will await further input from nephrology and critical care medicine. Cardiac long no aggressive intervention. Prognosis remains guarded will continue to follow until echo results come back and electrolyte homeostasis is achieved.. Past Medical History Past Medical History: Heart Failure, COPD, Diabetes Mellitus, Hypertension History of Any Multi-Drug Resistant Organisms: None Reported Past Surgical History: No Surgical Hx Reported Past Anesthesia/Blood Transfusion Reactions: No Reported Reaction Past Psychological History: No Psychological Hx Reported Smoking Status: Former smoker Past Alcohol Use History: None Reported Past Drug Use History: None Reported Medications and Allergies Home Medications Medication Instructions Recorded Confirmed Type ALPRAZolam [Xanax] 1 mg PO TID 11/09/23 01/18/24 History Albuterol Inhaler [Ventolin Hfa 2 puff INHALATION RT-QID PRN 11/09/23 01/18/24 History Inhaler] Atorvastatin [Lipitor] 80 mg PO HS 11/09/23 01/18/24 History Ergocalciferol (Vitamin D2) 1,250 mcg PO SA 11/09/23 01/18/24 History [Drisdol (50,000 Iu)] Furosemide [Lasix] 40 mg PO BID 11/09/23 01/18/24 History Montelukast [Singulair] 10 mg PO DAILY 11/09/23 01/18/24 History Ondansetron [Zofran] 4 mg PO Q12HR PRN 11/09/23 01/18/24 History Spironolactone-Hctz 25-25Mg 2 tab PO DAILY 11/09/23 01/18/24 History [Aldactazide 25-25 MG] allopurinoL [Zyloprim] 100 mg PO DAILY 11/09/23 01/18/24 History amLODIPine [Norvasc] 10 mg PO DAILY 11/09/23 01/18/24 History rOPINIRole HCL [Requip] 0.25 mg PO HS 11/09/23 01/18/24 History metFORMIN HCL [Glucophage] 500 mg PO DAILY 11/10/23 01/18/24 History Metoprolol Succinate (ER) [Toprol 25 mg PO DAILY #30 tab 11/16/23 01/18/24 Rx XL] Budesonide/Formoterol Fumarate 2 puff INHALATION RT-BID 01/18/24 01/18/24 History [Breyna 160-4.5 Mcg Inhaler] Diclofenac Sodium [Voltaren] 75 mg PO BID PRN 01/18/24 01/18/24 History Dicyclomine [Bentyl] 10 mg PO TID PRN 01/18/24 01/18/24 History Diphenoxylate HCl/Atropine 1 - 2 tab PO TID PRN 01/18/24 01/18/24 History [Lomotil 2.5-0.025 mg Tablet] Famotidine [Pepcid] 20 mg PO BID 01/18/24 01/18/24 History Ipratropium-Albuterol Nebulize 3 ml INHALATION RT-QID PRN 01/18/24 01/18/24 History [Duoneb 0.5 mg-3 mg/3 ml Soln] Tiotropium [place] [Spiriva] 1 puff INHALATION RT-DAILY 01/18/24 01/18/24 History buPROPion HCL [buPROPion HCL SR] 100 mg PO DAILY 01/18/24 01/18/24 History Allergies Allergy/AdvReac Type Severity Reaction Status Date / Time LESLIE Inhibitors Allergy Unknown Verified 11/09/23 19:35 Physical Exam Vitals: Vital Signs Temp Pulse Pulse Resp BP BP Pulse Ox 01/19/24 07:00 98 28 H 106/63 90 L 01/19/24 06:45 97 22 83/51 91 L 01/19/24 06:30 90 19 82/51 94 L 01/19/24 06:15 91 18 74/42 94 L 01/19/24 06:00 91 18 78/44 94 L 01/19/24 05:45 95 17 85/69 94 L 01/19/24 05:30 98 18 112/68 91 L 01/19/24 05:15 99 17 104/66 94 L 01/19/24 05:00 98 21 93/71 94 L 01/19/24 04:45 97 17 82/60 95 01/19/24 04:15 93 11 L 94/53 94 L 01/19/24 04:00 98.2 F 93 12 100/59 94 L 01/19/24 03:45 94 18 98/56 94 L 01/19/24 03:30 93 10 L 106/59 91 L 01/19/24 03:15 92 28 H 96/55 93 L 01/19/24 03:00 87 16 101/59 92 L 01/19/24 02:45 90 22 76/48 93 L 01/19/24 02:30 87 16 84/53 93 L 01/19/24 02:15 89 19 125/63 92 L 01/19/24 02:00 96 24 124/72 90 L 01/19/24 01:45 91 13 90/55 92 L 01/19/24 01:30 89 17 89/52 92 L 01/19/24 01:15 90 18 86/51 93 L 01/19/24 01:00 89 13 85/55 95 01/19/24 00:45 90 24 81/51 95 01/19/24 00:30 90 15 87/54 94 L 01/19/24 00:15 90 23 87/54 95 01/19/24 00:00 98.2 F 89 20 85/54 95 01/18/24 23:45 90 14 82/45 94 L 01/18/24 23:30 90 14 82/54 94 L 01/18/24 23:15 90 17 79/55 94 L 01/18/24 23:00 92 11 L 90/62 90 L 01/18/24 22:45 91 36 H 88/51 94 L 01/18/24 22:30 90 20 77/49 93 L 01/18/24 22:15 90 21 81/53 93 L 01/18/24 22:00 90 12 80/51 94 L 01/18/24 21:45 90 25 H 83/53 93 L 01/18/24 21:15 88 10 L 92/56 91 L 01/18/24 21:00 89 16 90/55 92 L 01/18/24 20:20 97.6 F 88 17 97/56 95 01/18/24 20:05 74 16 94/56 95 01/18/24 19:42 80 01/18/24 19:37 97.6 F 90 20 82/54 94 L 01/18/24 19:30 78 01/18/24 19:00 76/44 01/18/24 18:51 81 18 01/18/24 18:30 78 18 84/63 01/18/24 18:05 71 16 105/85 01/18/24 17:00 75 16 90/49 100 01/18/24 16:50 16 82/38 01/18/24 16:45 79 18 99/44 93 L 05/16/24 16:33 97.4 F L 78 18 62/34 93 L Intake and Output 01/18/24 01/19/24 01/19/24 22:59 06:59 14:59 Intake Total 472.775 9075.182 285.842 Output Total 176 590 250 Balance 54.818 503.182 35.842 Intake: IV 790 240 Calcium Gluconate in NaCl 100 1 gm In Saline 1 100ml. bag @ 100 mls/hr IVPB ONCE ONE Rx#:[id number] Dextrose 5% in Water 1, 550 200 000 ml @ 100 mls/hr IV . [id number] LUPILLO with Sodium Bicarb (1 Meq/ml) 150 ml Rx#:[id number] Sodium Chloride 0.9% 1, 140 40 000 ml @ 20 mls/hr IV . Q24H LUPILLO Rx#:[id number] Intake, IV Titration 230.818 303.182 45.842 Amount Dextrose 5% in Water 1, 150 50 000 ml @ 100 mls/hr IV . [id number] LUPILLO with Sodium Bicarb (1 Meq/ml) 150 ml Rx#:[id number] Norepinephrine 4 mg In 20.818 233.182 45.842 Sodium Chloride 0.9% 250 ml @ 0.03 MCG/KG/MIN 7. 206 mls/hr IV .Q24H ONE Rx#:[id number] Sodium Chloride 0.9% 1, 60 20 000 ml @ 20 mls/hr IV . Q24H LUPILLO Rx#:[id number] Output: Urine 175 590 250 Stool 1 Other: Voiding Method Indwelling Catheter Indwelling Catheter Weight 63.049 kg 67.2 kg Results 01/19/24 02:42 01/19/24 05:54 Cardiac Enzymes 01/18/24 Range/Units 16:50 AST 38 H (14-36) U/L Coagulation 01/18/24 Range/Units 16:50 PT 13.2 H (10.0-12.5) sec APTT 29.7 (22.0-30.0) sec CBC 01/18/24 01/19/24 Range/Units 16:50 02:42 WBC 23.3 H 18.1 H (3.8-10.6) k/uL RBC 5.62 H 4.93 (3.80-5.40) m/uL Hgb 15.2 D 13.4 (11.4-16.0) gm/dL Hct 50.1 H 44.5 (34.0-46.0) % Plt Count 315 240 (150-450) k/uL Comprehensive Metabolic Panel 01/18/24 01/18/24 01/18/24 Range/Units 16:50 20:13 22:21 Sodium 134 L 134 L 134 L (137-145) mmol/L Potassium 7.6 H* 6.7 H* 6.2 H* (3.5-5.1) mmol/L Chloride 93 L 102 98 (98-107) mmol/L Carbon Dioxide 13 L 5 L* 12 L (22-30) mmol/L BUN 215 H* 215 H* (7-17) mg/dL Creatinine 7.05 H* 6.10 H 6.08 H (0.52-1.04) mg/dL Glucose 115 H 140 H 143 H (74-99) mg/dL Calcium 8.0 L 7.5 L 6.9 L (8.4-10.2) mg/dL AST 38 H (14-36) U/L ALT 27 (4-34) U/L Alkaline Phosphatase 190 H (38-126) U/L Total Protein 7.0 (6.3-8.2) g/dL Albumin 3.5 (3.5-5.0) g/dL 01/19/24 01/19/24 Range/Units 02:42 05:54 Sodium 135 L 138 (137-145) mmol/L Potassium 7.3 H* 5.2 H (3.5-5.1) mmol/L Chloride 97 L 97 L (98-107) mmol/L Carbon Dioxide 14 L 19 L (22-30) mmol/L BUN 225 H* 212 H* (7-17) mg/dL Creatinine 5.66 H 5.18 H (0.52-1.04) mg/dL Glucose 174 H 129 H (74-99) mg/dL Calcium 6.4 L* 6.8 L (8.4-10.2) mg/dL AST (14-36) U/L ALT (4-34) U/L Alkaline Phosphatase (38-126) U/L Total Protein (6.3-8.2) g/dL Albumin (3.5-5.0) g/dL Current Medications Generic Name Dose Route Start Last Admin Trade Name Freq PRN Reason Stop Dose Admin Alprazolam 0.25 mg 01/18/24 22:12 01/18/24 23:26 Alprazolam 0.25 Mg Tab PO 0.25 mg HS PRN Administration Anxiety Sodium Chloride 1,000 mls @ 20 mls/hr 01/18/24 19:15 01/18/24 19:39 Saline 0.9% IV 20 mls/hr .Q24H LUPILLO Administration Sodium Bicarbonate 150 ml/ 1,150 mls @ 100 mls/hr 01/18/24 19:15 01/18/24 20:36 Dextrose/Water IV 50 mls/hr .[id number] LUPILLO Administration Norepinephrine Bitartrate 4 mg 254 mls @ 7.206 mls/hr 01/18/24 19:22 01/19/24 08:25 / Sodium Chloride IV 01/19/24 19:21 0.13 mcg/kg/min .Q24H ONE 31.228 mls/hr Titration Protocol 0.03 MCG/KG/MIN Metoprolol Succinate 25 mg 01/19/24 09:00 Metoprolol Succinate (Er) 25 Mg Tab.Er.24h PO DAILY LUPILLO Naloxone HCl 0.2 mg 01/18/24 19:12 Naloxone 0.4 Mg/Ml 1 Ml Vial IV Q2M PRN Opioid Reversal Ondansetron HCl 4 mg 01/18/24 22:16 Ondansetron 4 Mg/2 Ml Vial IVP Q6HR PRN Nausea And Vomiting Intake and Output 01/18/24 01/19/24 01/19/24 22:59 06:59 14:59 Intake Total 387.800 9238.182 285.842 Output Total 176 590 250 Balance 54.818 503.182 35.842 Intake: IV 790 240 Calcium Gluconate in NaCl 100 1 gm In Saline 1 100ml. bag @ 100 mls/hr IVPB ONCE ONE Rx#:[id number] Dextrose 5% in Water 1, 550 200 000 ml @ 100 mls/hr IV . [id number] LUPILLO with Sodium Bicarb (1 Meq/ml) 150 ml Rx#:[id number] Sodium Chloride 0.9% 1, 140 40 000 ml @ 20 mls/hr IV . Q24H LUPILLO Rx#:[id number] Intake, IV Titration 230.818 303.182 45.842 Amount Dextrose 5% in Water 1, 150 50 000 ml @ 100 mls/hr IV . [id number] LUPILLO with Sodium Bicarb (1 Meq/ml) 150 ml Rx#:[id number] Norepinephrine 4 mg In 20.818 233.182 45.842 Sodium Chloride 0.9% 250 ml @ 0.03 MCG/KG/MIN 7. 206 mls/hr IV .Q24H ONE Rx#:[id number] Sodium Chloride 0.9% 1, 60 20 000 ml @ 20 mls/hr IV . Q24H LUPILLO Rx#:[id number] Output: Urine 175 590 250 Stool 1 Other: Voiding Method Indwelling Catheter Indwelling Catheter Weight 63.049 kg 67.2 kg 01/19/24 02:42 01/19/24 05:54
[2024-01-19] MEDS: METOPROLOL SUCCINATE (ER) 25 MG TAB.ER.24H PO SCH (10:17)
--- NOTE | 2024-01-19 10:47 | P.CNPUL ---
History of Present Illness Consult date: 01/19/24 Requesting physician: Ronni Roche Reason for consult: other (Critical care management) Chief complaint: Diarrhea History of present illness: This is a 63-year-old female patient with a known history of diabetes mellitus, hypertension, chronic obstructive pulmonary disease, chronic tobacco dependence though stated quit recently, gout, hyperlipidemia, anxiety. She presented here to the emergency room yesterday with a 2-day history of diarrhea. Ultrasound of the kidneys and bladder revealed no evidence of hydronephrosis. No acute process. White count 18.1. Hemoglobin 13.4. Platelets 240. Sodium 135. Potassium peaked at 7.3. Bicarb is low is 5 now at 14. BUN 225 creatinine 5.66. She has been initiated on D5W with 3 A of bicarb at 100 MLS per hour. She is requiring norepinephrine for pressure support currently at 8 mg micrograms per minute. She has normal saline at KVO. The plan is for urgent hemodialysis catheter placement. She is seen today in consultation in the intensive care unit. She is currently sitting up in bed. Awake and alert in no acute distress. Feeling better today compared to yesterday. Maintaining good O2 saturations in the 90s on 2 L/min per nasal cannula, she has been afebrile. Review of Systems REVIEW OF SYSTEMS: CONSTITUTIONAL: Denies any recent significant weight loss or weight gain. EYES: Denies change in vision. EARS, NOSE, MOUTH, THROAT: Denies headaches, denies sore throat. CARDIOVASCULAR: Denies chest pain, palpitations or syncopal episodes. RESPIRATORY: Denies shortness of breath, cough, congestion or hemoptysis. GASTROINTESTINAL: Positive for diarrhea. GENITOURINARY: Denies hematuria, denies infections. MUSKULOSKELETAL: Denies pain, denies swelling. INTEGUMENTARY: Denies rash, denies eczema. NEUROLOGICAL: Denies recent memory loss, no recent seizure activity. PSYCHIATRIC: Denies anxiety, denies depression. HEMATOLOGIC/LYMPHATIC: Denies anemia, denies enlarged lymph nodes. Past Medical History Past Medical History: Heart Failure, COPD, Diabetes Mellitus, Hypertension History of Any Multi-Drug Resistant Organisms: None Reported Past Surgical History: No Surgical Hx Reported Past Anesthesia/Blood Transfusion Reactions: No Reported Reaction Past Psychological History: No Psychological Hx Reported Smoking Status: Former smoker Past Alcohol Use History: None Reported Past Drug Use History: None Reported Medications and Allergies Home Medications Medication Instructions Recorded Confirmed Type ALPRAZolam [Xanax] 1 mg PO TID 11/09/23 01/18/24 History Albuterol Inhaler [Ventolin Hfa 2 puff INHALATION RT-QID PRN 11/09/23 01/18/24 History Inhaler] Atorvastatin [Lipitor] 80 mg PO HS 11/09/23 01/18/24 History Ergocalciferol (Vitamin D2) 1,250 mcg PO SA 11/09/23 01/18/24 History [Drisdol (50,000 Iu)] Furosemide [Lasix] 40 mg PO BID 11/09/23 01/18/24 History Montelukast [Singulair] 10 mg PO DAILY 11/09/23 01/18/24 History Ondansetron [Zofran] 4 mg PO Q12HR PRN 11/09/23 01/18/24 History Spironolactone-Hctz 25-25Mg 2 tab PO DAILY 11/09/23 01/18/24 History [Aldactazide 25-25 MG] allopurinoL [Zyloprim] 100 mg PO DAILY 11/09/23 01/18/24 History amLODIPine [Norvasc] 10 mg PO DAILY 11/09/23 01/18/24 History rOPINIRole HCL [Requip] 0.25 mg PO HS 11/09/23 01/18/24 History metFORMIN HCL [Glucophage] 500 mg PO DAILY 11/10/23 01/18/24 History Metoprolol Succinate (ER) [Toprol 25 mg PO DAILY #30 tab 11/16/23 01/18/24 Rx XL] Budesonide/Formoterol Fumarate 2 puff INHALATION RT-BID 01/18/24 01/18/24 History [Breyna 160-4.5 Mcg Inhaler] Diclofenac Sodium [Voltaren] 75 mg PO BID PRN 01/18/24 01/18/24 History Dicyclomine [Bentyl] 10 mg PO TID PRN 01/18/24 01/18/24 History Diphenoxylate HCl/Atropine 1 - 2 tab PO TID PRN 01/18/24 01/18/24 History [Lomotil 2.5-0.025 mg Tablet] Famotidine [Pepcid] 20 mg PO BID 01/18/24 01/18/24 History Ipratropium-Albuterol Nebulize 3 ml INHALATION RT-QID PRN 01/18/24 01/18/24 History [Duoneb 0.5 mg-3 mg/3 ml Soln] Tiotropium [place] [Spiriva] 1 puff INHALATION RT-DAILY 01/18/24 01/18/24 History buPROPion HCL [buPROPion HCL SR] 100 mg PO DAILY 01/18/24 01/18/24 History Allergies Allergy/AdvReac Type Severity Reaction Status Date / Time LESLIE Inhibitors Allergy Unknown Verified 11/09/23 19:35 Physical Exam Vitals: Vital Signs Temp Pulse Pulse Resp BP BP Pulse Ox 01/19/24 10:15 98 20 104/81 91 L 01/19/24 10:00 99 14 81/47 91 L 01/19/24 09:45 98 14 83/51 90 L 01/19/24 09:30 95 18 93/55 91 L 01/19/24 09:15 98 18 96/64 96 01/19/24 09:00 100 20 86/57 90 L 01/19/24 08:45 99 19 91/52 92 L 01/19/24 08:30 99 27 H 98/72 92 L 01/19/24 08:15 98 19 96/60 92 L 01/19/24 08:00 97.5 F L 98 16 104/62 92 L 01/19/24 07:45 97 15 95/56 92 L 01/19/24 07:30 94 16 89/51 91 L 01/19/24 07:15 95 16 93/80 90 L 01/19/24 07:00 98 28 H 106/63 90 L 01/19/24 06:45 97 22 83/51 91 L 01/19/24 06:30 90 19 82/51 94 L 01/19/24 06:15 91 18 74/42 94 L 01/19/24 06:00 91 18 78/44 94 L 01/19/24 05:45 95 17 85/69 94 L 01/19/24 05:30 98 18 112/68 91 L 01/19/24 05:15 99 17 104/66 94 L 01/19/24 05:00 98 21 93/71 94 L 01/19/24 04:45 97 17 82/60 95 01/19/24 04:15 93 11 L 94/53 94 L 01/19/24 04:00 98.2 F 93 12 100/59 94 L 01/19/24 03:45 94 18 98/56 94 L 01/19/24 03:30 93 10 L 106/59 91 L 01/19/24 03:15 92 28 H 96/55 93 L 01/19/24 03:00 87 16 101/59 92 L 01/19/24 02:45 90 22 76/48 93 L 01/19/24 02:30 87 16 84/53 93 L 01/19/24 02:15 89 19 125/63 92 L 01/19/24 02:00 96 24 124/72 90 L 01/19/24 01:45 91 13 90/55 92 L 01/19/24 01:30 89 17 89/52 92 L 01/19/24 01:15 90 18 86/51 93 L 01/19/24 01:00 89 13 85/55 95 01/19/24 00:45 90 24 81/51 95 01/19/24 00:30 90 15 87/54 94 L 01/19/24 00:15 90 23 87/54 95 01/19/24 00:00 98.2 F 89 20 85/54 95 01/18/24 23:45 90 14 82/45 94 L 01/18/24 23:30 90 14 82/54 94 L 01/18/24 23:15 90 17 79/55 94 L 01/18/24 23:00 92 11 L 90/62 90 L 01/18/24 22:45 91 36 H 88/51 94 L 01/18/24 22:30 90 20 77/49 93 L 01/18/24 22:15 90 21 81/53 93 L 01/18/24 22:00 90 12 80/51 94 L 01/18/24 21:45 90 25 H 83/53 93 L 01/18/24 21:15 88 10 L 92/56 91 L 01/18/24 21:00 89 16 90/55 92 L 01/18/24 20:20 97.6 F 88 17 97/56 95 01/18/24 20:05 74 16 94/56 95 01/18/24 19:42 80 01/18/24 19:37 97.6 F 90 20 82/54 94 L 01/18/24 19:30 78 01/18/24 19:00 76/44 01/18/24 18:51 81 18 01/18/24 18:30 78 18 84/63 01/18/24 18:05 71 16 105/85 01/18/24 17:00 75 16 90/49 100 01/18/24 16:50 16 82/38 01/18/24 16:45 79 18 99/44 93 L 01/18/24 16:33 97.4 F L 78 18 62/34 93 L Intake and Output 01/18/24 01/19/24 01/19/24 22:59 06:59 14:59 Intake Total 932.482 0734.182 503.458 Output Total 176 590 370 Balance 54.818 503.182 133.458 Intake: IV 790 440 Calcium Gluconate in NaCl 100 1 gm In Saline 1 100ml. bag @ 100 mls/hr IVPB ONCE ONE Rx#:[id number] Dextrose 5% in Water 1, 550 400 000 ml @ 100 mls/hr IV . [id number] LUPILLO with Sodium Bicarb (1 Meq/ml) 150 ml Rx#:[id number] Sodium Chloride 0.9% 1, 140 40 000 ml @ 20 mls/hr IV . Q24H LUPILLO Rx#:[id number] Intake, IV Titration 230.818 303.182 63.458 Amount Dextrose 5% in Water 1, 150 50 000 ml @ 100 mls/hr IV . [id number] LUPILLO with Sodium Bicarb (1 Meq/ml) 150 ml Rx#:[id number] Norepinephrine 4 mg In 20.818 233.182 63.458 Sodium Chloride 0.9% 250 ml @ 0.03 MCG/KG/MIN 7. 206 mls/hr IV .Q24H ONE Rx#:[id number] Sodium Chloride 0.9% 1, 60 20 000 ml @ 20 mls/hr IV . Q24H LUPILLO Rx#:[id number] Output: Urine 175 590 370 Stool 1 Other: Voiding Method Indwelling Catheter Indwelling Catheter Weight 63.049 kg 67.2 kg GENERAL EXAM: Alert, 63-year-old female, on 2 L nasal cannula, fairly comf ortable in no apparent distress. HEAD: Normocephalic. EYES: Normal reaction of pupils, equal size. NOSE: Clear with pink turbinates. THROAT: No erythema or exudates. NECK: No masses, no JVD. CHEST: No chest wall deformity. LUNGS: Equal air entry with no crackles, wheeze, rhonchi or dullness. CVS: S1 and S2 normal with no audible murmur, regular rhythm. ABDOMEN: No hepatosplenomegaly, normal bowel sounds, no guarding or rigidity. SPINE: No scoliosis or deformity SKIN: No rashes CENTRAL NERVOUS SYSTEM: No focal deficits, tone is normal in all 4 extremities. EXTREMITIES: There is no peripheral edema. No clubbing, no cyanosis. Peripheral pulses are intact. Results - Laboratory Findings CBC and BMP: 01/19/24 02:42 01/19/24 05:54 PT/INR, D-dimer PT 13.2 sec (10.0-12.5) H 01/18/24 16:50 INR 1.3 (<1.2) H 01/18/24 16:50 Abnormal lab findings: Abnormal Labs 01/18/24 01/18/24 01/18/24 16:50 16:50 16:50 WBC 23.3 H RBC 5.62 H Hct 50.1 H MCHC 30.3 L RDW 18.7 H Neutrophils # (Manual) 20.27 H Lymphocytes # (Manual) Monocytes # (Manual) 1.40 H Nucleated RBCs PT 13.2 H INR 1.3 H Sodium 134 L Potassium 7.6 H* Chloride 93 L Carbon Dioxide 13 L BUN 215 H* Creatinine 7.05 H* Glucose 115 H POC Glucose (mg/dL) Calcium 8.0 L AST 38 H Alkaline Phosphatase 190 H Urine Protein Amorphous Sediment Hyaline Casts Urine Mucus 01/18/24 01/18/24 01/18/24 20:05 20:13 22:21 WBC RBC Hct MCHC RDW Neutrophils # (Manual) Lymphocytes # (Manual) Monocytes # (Manual) Nucleated RBCs PT INR Sodium 134 L 134 L Potassium 6.7 H* 6.2 H* Chloride Carbon Dioxide 5 L* 12 L BUN 215 H* Creatinine 6.10 H 6.08 H Glucose 140 H 143 H POC Glucose (mg/dL) 184 H Calcium 7.5 L 6.9 L AST Alkaline Phosphatase Urine Protein Amorphous Sediment Hyaline Casts Urine Mucus 01/18/24 01/19/24 01/19/24 23:05 02:42 02:42 WBC 18.1 H RBC Hct MCHC 30.0 L RDW 19.1 H Neutrophils # (Manual) 15.70 H Lymphocytes # (Manual) 0.91 L Monocytes # (Manual) 1.63 H Nucleated RBCs 2 H PT INR Sodium 135 L Potassium 7.3 H* Chloride 97 L Carbon Dioxide 14 L BUN 225 H* Creatinine 5.66 H Glucose 174 H POC Glucose (mg/dL) Calcium 6.4 L* AST Alkaline Phosphatase Urine Protein 1+ H Amorphous Sediment Occasional H Hyaline Casts 47 H Urine Mucus Occasional H 01/19/24 05:54 WBC RBC Hct MCHC RDW Neutrophils # (Manual) Lymphocytes # (Manual) Monocytes # (Manual) Nucleated RBCs PT INR Sodium Potassium 5.2 H Chloride 97 L Carbon Dioxide 19 L BUN 212 H* Creatinine 5.18 H Glucose 129 H POC Glucose (mg/dL) Calcium 6.8 L AST Alkaline Phosphatase Urine Protein Amorphous Sediment Hyaline Casts Urine Mucus Assessment and Plan Assessment: Acute diarrhea Acute kidney injury Hyperkalemia secondary to above Acute metabolic acidosis, currently on a bicarb drip Hypotension secondary to above, currently on norepinephrine History of systolic congestive heart failure with an ejection fraction of 20% Diabetes mellitus History of hypertension Hyperlipidemia Chronic obstructive pulmonary disease Former heavy smoker History of gout History of anxiety Plan: The patient was seen and evaluated Labs and medications reviewed Continue bicarbonate drip Plan is for hemodialysis catheter placement today Nephrology is consulted Titrate down the norepinephrine as tolerated Obtain a chest x-ray We will continue to follow and make further recommendations based on her clinical status I have personally seen and examined the patient, performed the documentation and the assessment and plan as written. Number of minutes spent on the visit: 20.
[2024-01-19] MEDS: ONDANSETRON 4 MG/2 ML VIAL IVP PRN (10:57)
--- NOTE | 2024-01-19 12:03 | P.NPCON ---
History of Present Illness - Reason for Consult acute renal failure - History of Present Illness patient is a 63-year-old female with history of type 2 diabetes, hypertension, COPD who was admitted to the hospital with complaints of diarrhea which had been going on for 3-4 days prior to admission. Patient had been complaining of increased weakness. labs showed serum creatinineof 7.0 on admission with CO2 less than 5 and potassium of 7.6. patient is noted to be on NSAIDs, diclofenac and Aldactone. She was also maintained on metformin. Blood pressure has been low and currently maintained on levo fed. indwelling Alejandro catheter present with urine output of about 765 mL. Serum potassium has decreased to 5.2 and serum creatinine is down to 5.1. Patient is currently maintained on bicarb drip and acidosis has improved to CO2 of 19. Patient continues to have diarrhea. Prior creatinine 1.65 on 11/14/2023 Review of Systems As per HPI Past Medical History Past Medical History: Heart Failure, COPD, Diabetes Mellitus, Hypertension History of Any Multi-Drug Resistant Organisms: None Reported Past Surgical History: No Surgical Hx Reported Past Anesthesia/Blood Transfusion Reactions: No Reported Reaction Past Psychological History: No Psychological Hx Reported Smoking Status: Former smoker Past Alcohol Use History: None Reported Past Drug Use History: None Reported Medications and Allergies Home Medications Medication Instructions Recorded Confirmed Type ALPRAZolam [Xanax] 1 mg PO TID 11/09/23 01/18/24 History Albuterol Inhaler [Ventolin Hfa 2 puff INHALATION RT-QID PRN 11/09/23 01/18/24 History Inhaler] Atorvastatin [Lipitor] 80 mg PO HS 11/09/23 01/18/24 History Ergocalciferol (Vitamin D2) 1,250 mcg PO SA 11/09/23 01/18/24 History [Drisdol (50,000 Iu)] Furosemide [Lasix] 40 mg PO BID 11/09/23 01/18/24 History Montelukast [Singulair] 10 mg PO DAILY 11/09/23 01/18/24 History Ondansetron [Zofran] 4 mg PO Q12HR PRN 11/09/23 01/18/24 History Spironolactone-Hctz 25-25Mg 2 tab PO DAILY 11/09/23 01/18/24 History [Aldactazide 25-25 MG] allopurinoL [Zyloprim] 100 mg PO DAILY 11/09/23 01/18/24 History amLODIPine [Norvasc] 10 mg PO DAILY 11/09/23 01/18/24 History rOPINIRole HCL [Requip] 0.25 mg PO HS 11/09/23 01/18/24 History metFORMIN HCL [Glucophage] 500 mg PO DAILY 11/10/23 01/18/24 History Metoprolol Succinate (ER) [Toprol 25 mg PO DAILY #30 tab 11/16/23 01/18/24 Rx XL] Budesonide/Formoterol Fumarate 2 puff INHALATION RT-BID 01/18/24 01/18/24 History [Breyna 160-4.5 Mcg Inhaler] Diclofenac Sodium [Voltaren] 75 mg PO BID PRN 01/18/24 01/18/24 History Dicyclomine [Bentyl] 10 mg PO TID PRN 01/18/24 01/18/24 History Diphenoxylate HCl/Atropine 1 - 2 tab PO TID PRN 01/18/24 01/18/24 History [Lomotil 2.5-0.025 mg Tablet] Famotidine [Pepcid] 20 mg PO BID 01/18/24 01/18/24 History Ipratropium-Albuterol Nebulize 3 ml INHALATION RT-QID PRN 01/18/24 01/18/24 History [Duoneb 0.5 mg-3 mg/3 ml Soln] Tiotropium [place] [Spiriva] 1 puff INHALATION RT-DAILY 01/18/24 01/18/24 History buPROPion HCL [buPROPion HCL SR] 100 mg PO DAILY 01/18/24 01/18/24 History Allergies Allergy/AdvReac Type Severity Reaction Status Date / Time LESLIE Inhibitors Allergy Unknown Verified 11/09/23 19:35 Physical Exam Vitals: Vital Signs Temp Pulse Pulse Resp BP BP Pulse Ox 01/19/24 11:45 98 17 78/56 90 L 01/19/24 11:30 97 19 88/57 90 L 01/19/24 11:15 98 16 81/56 90 L 01/19/24 11:00 95 17 83/50 91 L 01/19/24 10:45 96 10 L 78/52 91 L 01/19/24 10:30 95 16 82/54 01/19/24 10:15 98 20 104/81 91 L 01/19/24 10:00 99 14 81/47 91 L 01/19/24 09:45 98 14 83/51 90 L 01/19/24 09:30 95 18 93/55 91 L 01/19/24 09:15 98 18 96/64 96 01/19/24 09:00 100 20 86/57 90 L 01/19/24 08:45 99 19 91/52 92 L 01/19/24 08:30 99 27 H 98/72 92 L 01/19/24 08:15 98 19 96/60 92 L 01/19/24 08:00 97.5 F L 98 16 104/62 92 L 01/19/24 07:45 97 15 95/56 92 L 01/19/24 07:30 94 16 89/51 91 L 01/19/24 07:15 95 16 93/80 90 L 01/19/24 07:00 98 28 H 106/63 90 L 01/19/24 06:45 97 22 83/51 91 L 01/19/24 06:30 90 19 82/51 94 L 01/19/24 06:15 91 18 74/42 94 L 01/19/24 06:00 91 18 78/44 94 L 01/19/24 05:45 95 17 85/69 94 L 01/19/24 05:30 98 18 112/68 91 L 01/19/24 05:15 99 17 104/66 94 L 01/19/24 05:00 98 21 93/71 94 L 01/19/24 04:45 97 17 82/60 95 01/19/24 04:15 93 11 L 94/53 94 L 01/19/24 04:00 98.2 F 93 12 100/59 94 L 01/19/24 03:45 94 18 98/56 94 L 01/19/24 03:30 93 10 L 106/59 91 L 01/19/24 03:15 92 28 H 96/55 93 L 01/19/24 03:00 87 16 101/59 92 L 01/19/24 02:45 90 22 76/48 93 L 01/19/24 02:30 87 16 84/53 93 L 01/19/24 02:15 89 19 125/63 92 L 01/19/24 02:00 96 24 124/72 90 L 01/19/24 01:45 91 13 90/55 92 L 01/19/24 01:30 89 17 89/52 92 L 01/19/24 01:15 90 18 86/51 93 L 01/19/24 01:00 89 13 85/55 95 01/19/24 00:45 90 24 81/51 95 01/19/24 00:30 90 15 87/54 94 L 01/19/24 00:15 90 23 87/54 95 01/19/24 00:00 98.2 F 89 20 85/54 95 01/18/24 23:45 90 14 82/45 94 L 01/18/24 23:30 90 14 82/54 94 L 01/18/24 23:15 90 17 79/55 94 L 01/18/24 23:00 92 11 L 90/62 90 L 01/18/24 22:45 91 36 H 88/51 94 L 01/18/24 22:30 90 20 77/49 93 L 01/18/24 22:15 90 21 81/53 93 L 01/18/24 22:00 90 12 80/51 94 L 01/18/24 21:45 90 25 H 83/53 93 L 01/18/24 21:15 88 10 L 92/56 91 L 01/18/24 21:00 89 16 90/55 92 L 01/18/24 20:20 97.6 F 88 17 97/56 95 01/18/24 20:05 74 16 94/56 95 01/18/24 19:42 80 01/18/24 19:37 97.6 F 90 20 82/54 94 L 01/18/24 19:30 78 01/18/24 19:00 76/44 01/18/24 18:51 81 18 01/18/24 18:30 78 18 84/63 01/18/24 18:05 71 16 105/85 01/18/24 17:00 75 16 90/49 100 01/18/24 16:50 16 82/38 01/18/24 16:45 79 18 99/44 93 L 01/18/24 16:33 97.4 F L 78 18 62/34 93 L Intake and Output 01/18/24 01/19/24 01/19/24 22:59 06:59 14:59 Intake Total 028.072 5490.182 503.458 Output Total 176 590 373 Balance 54.818 503.182 130.458 Intake: IV 790 440 Calcium Gluconate in NaCl 100 1 gm In Saline 1 100ml. bag @ 100 mls/hr IVPB ONCE ONE Rx#:[id number] Dextrose 5% in Water 1, 550 400 000 ml @ 100 mls/hr IV . [id number] LUPILLO with Sodium Bicarb (1 Meq/ml) 150 ml Rx#:[id number] Sodium Chloride 0.9% 1, 140 40 000 ml @ 20 mls/hr IV . Q24H LUPILLO Rx#:[id number] Intake, IV Titration 230.818 303.182 63.458 Amount Dextrose 5% in Water 1, 150 50 000 ml @ 100 mls/hr IV . [id number] LUPILLO with Sodium Bicarb (1 Meq/ml) 150 ml Rx#:[id number] Norepinephrine 4 mg In 20.818 233.182 63.458 Sodium Chloride 0.9% 250 ml @ 0.03 MCG/KG/MIN 7. 206 mls/hr IV .Q24H ONE Rx#:[id number] Sodium Chloride 0.9% 1, 60 20 000 ml @ 20 mls/hr IV . Q24H LUPILLO Rx#:[id number] Output: Urine 175 590 370 Stool 1 3 Other: Voiding Method Indwelling Catheter Indwelling Catheter Indwelling Catheter Weight 63.049 kg 67.2 kg patient is awake comfortable, no acute distress. She is able to carry on a conversation. Examination of the heart S1 and S2 Examination of the lungs bilateral breath sounds are heard Abdomen is soft nontender Examination of lower extremities shows no significant edema [employer] exam shows patient is able to move all 4 extremities. Results - Lab Results Most recent lab results Calcium 6.8 mg/dL (8.4-10.2) L 01/19/24 05:54 Magnesium 2.1 mg/dL (1.6-2.3) 01/18/24 16:50 01/19/24 02:42 01/19/24 05:54 Assessment and Plan Assessment: 1. Acute kidney injury, ATN secondary to hypotension and NSAIDs as well as h ypovolemia. Currently nonoliguric and improving. UA shows trace protein, no blood or cells. no evidence of obstruction on ultrasound of the kidneys. 2. Severe anion gap metabolic acidosis associated with acute kidney injury, rule out lactic acidosis associated with use of metformin. Currently maintained on IV bicarb and improving. also underlying component of acidosis from severe diarrhea. 3. Hyperkalemia associated with acute kidney injury and severe metabolic acidosis as well as use of NSAIDs and Aldactone, currently improving 4. Intravascular volume depletion 5. Diarrhea Plan: continue with bicarb drip. Hold off on hemodialysis as renal function appears to be improving with improving acidosis and hyperkalemia. repeat labs this afternoon Check lactic acid level which may not be accurate now. Thank you for the consultation. We will continue to follow the patient with you during her hospitalization.
[2024-01-19 12:26] VITALS: BMI 28.0
--- NOTE | 2024-01-19 12:40 | CA ---
Transthoracic Echo Report Name: Cata Car Age: 63 Gender: F : 1960 Exam Date: 01/19/2024 09:29 Exam Location: [place] [facility] Ht (in): 61 Wt (lb): 148 Ordering Physician: Wanda Calderon MD ([id number]) Attending/Referring Phys: Market Maker Addie Oreilly RDCS Procedure CPT: Indications: chf Cardiac Hx: Technical Quality: Technically difficult study Contrast 1: Definity Total Dose (mL): 2 Contrast 2: Total Dose (mL): MEASUREMENTS (Male / Female) Normal Values 2D ECHO LV Diastolic Diameter PLAX 6.6 cm 4.2 - 5.9 / 3.9 - 5.3 cm LV Systolic Diameter PLAX 6.0 cm IVS Diastolic Thickness 0.8 cm 0.6 - 1.0 / 0.6 - 0.9 cm LVPW Diastolic Thickness 0.9 cm 0.6 - 1.0 / 0.6 - 0.9 cm LV Relative Wall Thickness 0.3 RV Internal Dim ED PLAX 4.5 cm LV Diastolic Volume MOD BP 214.8 cm??? 67 - 155 / 56 - 104 cm??? LV Systolic Volume MOD BP 166.8 cm??? 22 - 58 / 19 - 49 cm??? LV Ejection Fraction MOD BP 22.4 % >= 55 % LV Cardiac Index MOD BP 2708.6 cm???/min???m??? LV Diastolic Volume MOD 4C 212.3 cm??? LV Systolic Volume MOD 4C 170.3 cm??? LV Ejection Fraction MOD 4C 19.8 % LV Cardiac Index MOD 4C 2368.1 cm???/min???m??? LV Diastolic Length 4C 9.7 cm LV Systolic Length 4C 9.4 cm LV Diastolic Volume MOD 2C 208.1 cm??? LV Systolic Volume MOD 2C 162.7 cm??? LV Ejection Fraction MOD 2C 21.8 % LV Cardiac Index MOD 2C 2561.5 cm???/min???m??? LV Diastolic Length 2C 10.3 cm LV Systolic Length 2C 9.5 cm DOPPLER LVOT Peak Velocity 143.4 cm/s LVOT Peak Gradient 8.2 mmHg LVOT Velocity Time Integral 24.0 cm TR Peak Velocity 297.1 cm/s TR Peak Gradient 35.3 mmHg Right Atrial Pressure 5.0 mmHg Pulmonary Artery Systolic Pressu 40.3 mmHg Right Ventricular Systolic Press 40.3 mmHg FINDINGS Left Ventricle Left ventricular ejection fraction is estimated at 20-25 %. Severely increased left ventricular diastolic diameter. Severely increased left ventricular diastolic volume. Severely increased left ventricular systolic volume. Severely decreased left ventricular ejection fraction. Severely reduced global left ventricular systolic function. Right Ventricle Severe right ventricular dilatation with moderately reduced function. Mildly elevated right ventricuar systolic pressure. Right Atrium Severe right atrial dilatation. Left Atrium Severe left atrial dilatation. Mitral Valve Mitral valve thickened. Mitral annular calcification. No evidence for mitral valve prolapse. No mitral stenosis. Moderate eccentric mitral regurgitation. Aortic Valve Trileaflet aortic valve. No aortic valve stenosis or regurgitation. Tricuspid Valve Structurally normal tricuspid valve. No tricuspid stenosis. Moderate tricuspid regurgitation. Pulmonic Valve Pulmonic valve not well visualized. No pulmonic stenosis. No pulmonic regurgitation. Pericardium No pericardial effusion. Aorta Normal size aortic root. CONCLUSIONS 1. Severe global hypokinesis of the left ventricle with dilated left ventricle 2. Moderate to severe mitral with moderate tricuspid regurgitation and mild pulmonary hypertension Previewed by: Dr. Christ Elmore MD (Electronically Signed) Final Date: 19 Jan 2024 12:39
[2024-01-19] MEDS: METOPROLOL SUCCINATE (ER) 25 MG TAB.ER.24H PO STA (13:36)
--- NOTE | 2024-01-19 14:35 | XR ---
EXAMINATION TYPE: XR chest 1V portable DATE OF EXAM: 01/19/2024 Comparison: 11/14/2023 Clinical History: 63-year-old female COPD, CHF Findings: Heart moderately enlarged. Diffuse interstitial patchy opacities, left greater than right, especially in the mid and lower lungs. Suspect small left effusion. Impression: Moderate cardiomegaly with patchy pulmonary edema, left greater than right. Suspect small left pleura l effusion.
[2024-01-19 14:57] LABS: Anion Gap 18 mmol/L; Carbon Dioxide 23 mmol/L (22-30); Chloride 96 mmol/L (98-107); Glucose 129 mg/dL (74-99); Potassium 4.8 mmol/L (3.5-5.1); Sodium 137 mmol/L (137-145)
[2024-01-19] MEDS: LORazepam 1 MG/0.5 ML VIAL IV STA (15:01)
[2024-01-19 15:05] LABS: African American GFR (CKD) 10 (>60 ml/min/1.73 sqM); Non-African American GFR(CKD) 9 (>60 ml/min/1.73 sqM)
[2024-01-19 15:10] LABS: Blood Urea Nitrogen 214 mg/dL (7-17); Calcium 6.1 mg/dL (8.4-10.2)
[2024-01-19 15:16] LABS: Glucose,Whole Blood 125 mg/dL (70-110)
[2024-01-19] MEDS: HEPARIN SODIUM 1,000 UN/ML (10ML VL) MISCELLANE ONE (16:12)
[2024-01-19 16:19] LABS: Amphetamine Screen,Urine Not Detected (NotDetected); Barbiturate Screen,Urine Not Detected (NotDetected); Benzodiazepines Screen,Urine Detected (NotDetected); Cocaine Screen,Urine Not Detected (NotDetected); Methadone Screen, Urine Not Detected (NotDetected); Opiate Screen,Urine Not Detected (NotDetected); Oxycodone Screen, Urine Not Detected (NotDetected); Phencyclidine Screen,Urine Not Detected (NotDetected); Tricyclic Antidepressant,Urine Not Detected (NotDetected); Urn Cannabinoid Scrn Not Detected (NotDetected)
--- NOTE | 2024-01-19 16:19 | P.GSCN ---
History of Present Illness History of present illness: 63-year-old white female consulted for placement of dialysis catheter. Patient has a high BUN and creatinine and potassium patient is very restless patient also has history of diabetes hypertension COPD patient also has a history of diarrhea prior to admission admission patient was seen in her room patient is very restless Neck is supple no bruit appreciated Chest few crackles at lung bases. Second sound present. Abdomen soft nontender Femorals are 1+ bilateral Plan is placement of triple lumen dialysis catheter risk and complication discussed Past Medical History Past Medical History: Heart Failure, COPD, Diabetes Mellitus, Hypertension History of Any Multi-Drug Resistant Organisms: None Reported Past Surgical History: No Surgical Hx Reported Past Anesthesia/Blood Transfusion Reactions: No Reported Reaction Past Psychological History: No Psychological Hx Reported Smoking Status: Former smoker Past Alcohol Use History: None Reported Past Drug Use History: None Reported Medications and Allergies Home Medications Medication Instructions Recorded Confirmed Type ALPRAZolam [Xanax] 1 mg PO TID 11/09/23 01/18/24 History Albuterol Inhaler [Ventolin Hfa 2 puff INHALATION RT-QID PRN 11/09/23 01/18/24 History Inhaler] Atorvastatin [Lipitor] 80 mg PO HS 11/09/23 01/18/24 History Ergocalciferol (Vitamin D2) 1,250 mcg PO SA 11/09/23 01/18/24 History [Drisdol (50,000 Iu)] Furosemide [Lasix] 40 mg PO BID 11/09/23 01/18/24 History Montelukast [Singulair] 10 mg PO DAILY 11/09/23 01/18/24 History Ondansetron [Zofran] 4 mg PO Q12HR PRN 11/09/23 01/18/24 History Spironolactone-Hctz 25-25Mg 2 tab PO DAILY 11/09/23 01/18/24 History [Aldactazide 25-25 MG] allopurinoL [Zyloprim] 100 mg PO DAILY 11/09/23 01/18/24 History amLODIPine [Norvasc] 10 mg PO DAILY 11/09/23 01/18/24 History rOPINIRole HCL [Requip] 0.25 mg PO HS 11/09/23 01/18/24 History metFORMIN HCL [Glucophage] 500 mg PO DAILY 11/10/23 01/18/24 History Metoprolol Succinate (ER) [Toprol 25 mg PO DAILY #30 tab 11/16/23 01/18/24 Rx XL] Budesonide/Formoterol Fumarate 2 puff INHALATION RT-BID 01/18/24 01/18/24 History [Breyna 160-4.5 Mcg Inhaler] Diclofenac Sodium [Voltaren] 75 mg PO BID PRN 01/18/24 01/18/24 History Dicyclomine [Bentyl] 10 mg PO TID PRN 01/18/24 01/18/24 History Diphenoxylate HCl/Atropine 1 - 2 tab PO TID PRN 01/18/24 01/18/24 History [Lomotil 2.5-0.025 mg Tablet] Famotidine [Pepcid] 20 mg PO BID 01/18/24 01/18/24 History Ipratropium-Albuterol Nebulize 3 ml INHALATION RT-QID PRN 01/18/24 01/18/24 History [Duoneb 0.5 mg-3 mg/3 ml Soln] Tiotropium [place] [Spiriva] 1 puff INHALATION RT-DAILY 01/18/24 01/18/24 History buPROPion HCL [buPROPion HCL SR] 100 mg PO DAILY 01/18/24 01/18/24 History Allergies Allergy/AdvReac Type Severity Reaction Status Date / Time LESLIE Inhibitors Allergy Unknown Verified 11/09/23 19:35 Surgical - Exam Vital Signs Temp Pulse Resp BP Pulse Ox 97.4 F L 78 18 62/34 93 L 01/18/24 16:33 01/18/24 16:33 01/18/24 16:33 01/18/24 16:33 01/18/24 16:33 Results - Labs 01/19/24 02:42 01/19/24 14:09 Abnormal Lab Results - Last 24 Hours (Table) 01/18/24 01/18/24 01/18/24 Range/Units 16:50 16:50 16:50 WBC 23.3 H (3.8-10.6) k/uL RBC 5.62 H (3.80-5.40) m/uL Hct 50.1 H (34.0-46.0) % MCHC 30.3 L (31.0-37.0) g/dL RDW 18.7 H (11.5-15.5) % Neutrophils # (Manual) 20.27 H (1.3-7.7) k/uL Lymphocytes # (Manual) (1.0-4.8) k/uL Monocytes # (Manual) 1.40 H (0-1.0) k/uL Nucleated RBCs (0-0) /100 WBC PT 13.2 H (10.0-12.5) sec INR 1.3 H (<1.2) Sodium 134 L (137-145) mmol/L Potassium 7.6 H* (3.5-5.1) mmol/L Chloride 93 L (98-107) mmol/L Carbon Dioxide 13 L (22-30) mmol/L BUN 215 H* (7-17) mg/dL Creatinine 7.05 H* (0.52-1.04) mg/dL Glucose 115 H (74-99) mg/dL POC Glucose (mg/dL) (70-110) mg/dL Calcium 8.0 L (8.4-10.2) mg/dL AST 38 H (14-36) U/L Alkaline Phosphatase 190 H (38-126) U/L Urine Protein (Negative) Amorphous Sediment (None) /hpf Hyaline Casts (0-2) /lpf Urine Mucus (None) /hpf 01/18/24 01/18/24 01/18/24 Range/Units 20:05 20:13 22:21 WBC (3.8-10.6) k/uL RBC (3.80-5.40) m/uL Hct (34.0-46.0) % MCHC (31.0-37.0) g/dL RDW (11.5-15.5) % Neutrophils # (Manual) (1.3-7.7) k/uL Lymphocytes # (Manual) (1.0-4.8) k/uL Monocytes # (Manual) (0-1.0) k/uL Nucleated RBCs (0-0) /100 WBC PT (10.0-12.5) sec INR (<1.2) Sodium 134 L 134 L (137-145) mmol/L Potassium 6.7 H* 6.2 H* (3.5-5.1) mmol/L Chloride (98-107) mmol/L Carbon Dioxide 5 L* 12 L (22-30) mmol/L BUN 215 H* (7-17) mg/dL Creatinine 6.10 H 6.08 H (0.52-1.04) mg/dL Glucose 140 H 143 H (74-99) mg/dL POC Glucose (mg/dL) 184 H (70-110) mg/dL Calcium 7.5 L 6.9 L (8.4-10.2) mg/dL AST (14-36) U/L Alkaline Phosphatase (38-126) U/L Urine Protein (Negative) Amorphous Sediment (None) /hpf Hyaline Casts (0-2) /lpf Urine Mucus (None) /hpf 01/18/24 01/19/24 01/19/24 Range/Units 23:05 02:42 02:42 WBC 18.1 H (3.8-10.6) k/uL RBC (3.80-5.40) m/uL Hct (34.0-46.0) % MCHC 30.0 L (31.0-37.0) g/dL RDW 19.1 H (11.5-15.5) % Neutrophils # (Manual) 15.70 H (1.3-7.7) k/uL Lymphocytes # (Manual) 0.91 L (1.0-4.8) k/uL Monocytes # (Manual) 1.63 H (0-1.0) k/uL Nucleated RBCs 2 H (0-0) /100 WBC PT (10.0-12.5) sec INR (<1.2) Sodium 135 L (137-145) mmol/L Potassium 7.3 H* (3.5-5.1) mmol/L Chloride 97 L (98-107) mmol/L Carbon Dioxide 14 L (22-30) mmol/L BUN 225 H* (7-17) mg/dL Creatinine 5.66 H (0.52-1.04) mg/dL Glucose 174 H (74-99) mg/dL POC Glucose (mg/dL) (70-110) mg/dL Calcium 6.4 L* (8.4-10.2) mg/dL AST (14-36) U/L Alkaline Phosphatase (38-126) U/L Urine Protein 1+ H (Negative) Amorphous Sediment Occasional H (None) /hpf Hyaline Casts 47 H (0-2) /lpf Urine Mucus Occasional H (None) /hpf 01/19/24 01/19/24 01/19/24 Range/Units 05:54 14:09 15:15 WBC (3.8-10.6) k/uL RBC (3.80-5.40) m/uL Hct (34.0-46.0) % MCHC (31.0-37.0) g/dL RDW (11.5-15.5) % Neutrophils # (Manual) (1.3-7.7) k/uL Lymphocytes # (Manual) (1.0-4.8) k/uL Monocytes # (Manual) (0-1.0) k/uL Nucleated RBCs (0-0) /100 WBC PT (10.0-12.5) sec INR (<1.2) Sodium (137-145) mmol/L Potassium 5.2 H (3.5-5.1) mmol/L Chloride 97 L 96 L (98-107) mmol/L Carbon Dioxide 19 L (22-30) mmol/L BUN 212 H* 214 H* (7-17) mg/dL Creatinine 5.18 H 4.92 H (0.52-1.04) mg/dL Glucose 129 H 129 H (74-99) mg/dL POC Glucose (mg/dL) 125 H (70-110) mg/dL Calcium 6.8 L 6.1 L* (8.4-10.2) mg/dL AST (14-36) U/L Alkaline Phosphatase (38-126) U/L Urine Protein (Negative) Amorphous Sediment (None) /hpf Hyaline Casts (0-2) /lpf Urine Mucus (None) /hpf Diabetes panel 01/18/24 01/18/24 01/18/24 Range/Units 16:50 20:13 22:21 Sodium 134 L 134 L 134 L (137-145) mmol/L Potassium 7.6 H* 6.7 H* 6.2 H* (3.5-5.1) mmol/L Chloride 93 L 102 98 (98-107) mmol/L Carbon Dioxide 13 L 5 L* 12 L (22-30) mmol/L BUN 215 H* 215 H* (7-17) mg/dL Creatinine 7.05 H* 6.10 H 6.08 H (0.52-1.04) mg/dL Glucose 115 H 140 H 143 H (74-99) mg/dL Calcium 8.0 L 7.5 L 6.9 L (8.4-10.2) mg/dL AST 38 H (14-36) U/L ALT 27 (4-34) U/L Alkaline Phosphatase 190 H (38-126) U/L Total Protein 7.0 (6.3-8.2) g/dL Albumin 3.5 (3.5-5.0) g/dL 01/19/24 01/19/24 01/19/24 Range/Units 02:42 05:54 14:09 Sodium 135 L 138 137 (137-145) mmol/L Potassium 7.3 H* 5.2 H 4.8 (3.5-5.1) mmol/L Chloride 97 L 97 L 96 L (98-107) mmol/L Carbon Dioxide 14 L 19 L 23 (22-30) mmol/L BUN 225 H* 212 H* 214 H* (7-17) mg/dL Creatinine 5.66 H 5.18 H 4.92 H (0.52-1.04) mg/dL Glucose 174 H 129 H 129 H (74-99) mg/dL Calcium 6.4 L* 6.8 L 6.1 L* (8.4-10.2) mg/dL AST (14-36) U/L ALT (4-34) U/L Alkaline Phosphatase (38-126) U/L Total Protein (6.3-8.2) g/dL Albumin (3.5-5.0) g/dL Calcium panel 01/18/24 01/18/24 01/18/24 Range/Units 16:50 20:13 22:21 Calcium 8.0 L 7.5 L 6.9 L (8.4-10.2) mg/dL Albumin 3.5 (3.5-5.0) g/dL 01/19/24 01/19/24 01/19/24 Range/Units 02:42 05:54 14:09 Calcium 6.4 L* 6.8 L 6.1 L* (8.4-10.2) mg/dL Albumin (3.5-5.0) g/dL Pituitary panel 01/18/24 01/18/24 01/18/24 Range/Units 16:50 20:13 22:21 Sodium 134 L 134 L 134 L (137-145) mmol/L Potassium 7.6 H* 6.7 H* 6.2 H* (3.5-5.1) mmol/L Chloride 93 L 102 98 (98-107) mmol/L Carbon Dioxide 13 L 5 L* 12 L (22-30) mmol/L BUN 215 H* 215 H* (7-17) mg/dL Creatinine 7.05 H* 6.10 H 6.08 H (0.52-1.04) mg/dL Glucose 115 H 140 H 143 H (74-99) mg/dL Calcium 8.0 L 7.5 L 6.9 L (8.4-10.2) mg/dL 01/19/24 01/19/24 01/19/24 Range/Units 02:42 05:54 14:09 Sodium 135 L 138 137 (137-145) mmol/L Potassium 7.3 H* 5.2 H 4.8 (3.5-5.1) mmol/L Chloride 97 L 97 L 96 L (98-107) mmol/L Carbon Dioxide 14 L 19 L 23 (22-30) mmol/L BUN 225 H* 212 H* 214 H* (7-17) mg/dL Creatinine 5.66 H 5.18 H 4.92 H (0.52-1.04) mg/dL Glucose 174 H 129 H 129 H (74-99) mg/dL Calcium 6.4 L* 6.8 L 6.1 L* (8.4-10.2) mg/dL Adrenal panel 01/18/24 01/18/24 01/18/24 Range/Units 16:50 20:13 22:21 Sodium 134 L 134 L 134 L (137-145) mmol/L Potassium 7.6 H* 6.7 H* 6.2 H* (3.5-5.1) mmol/L Chloride 93 L 102 98 (98-107) mmol/L Carbon Dioxide 13 L 5 L* 12 L (22-30) mmol/L BUN 215 H* 215 H* (7-17) mg/dL Creatinine 7.05 H* 6.10 H 6.08 H (0.52-1.04) mg/dL Glucose 115 H 140 H 143 H (74-99) mg/dL Calcium 8.0 L 7.5 L 6.9 L (8.4-10.2) mg/dL Total Bilirubin 1.1 (0.2-1.3) mg/dL AST 38 H (14-36) U/L ALT 27 (4-34) U/L Alkaline Phosphatase 190 H (38-126) U/L Total Protein 7.0 (6.3-8.2) g/dL Albumin 3.5 (3.5-5.0) g/dL 01/19/24 01/19/24 01/19/24 Range/Units 02:42 05:54 14:09 Sodium 135 L 138 137 (137-145) mmol/L Potassium 7.3 H* 5.2 H 4.8 (3.5-5.1) mmol/L Chloride 97 L 97 L 96 L (98-107) mmol/L Carbon Dioxide 14 L 19 L 23 (22-30) mmol/L BUN 225 H* 212 H* 214 H* (7-17) mg/dL Creatinine 5.66 H 5.18 H 4.92 H (0.52-1.04) mg/dL Glucose 174 H 129 H 129 H (74-99) mg/dL Calcium 6.4 L* 6.8 L 6.1 L* (8.4-10.2) mg/dL Total Bilirubin (0.2-1.3) mg/dL AST (14-36) U/L ALT (4-34) U/L Alkaline Phosphatase (38-126) U/L Total Protein (6.3-8.2) g/dL Albumin (3.5-5.0) g/dL
--- NOTE | 2024-01-19 16:21 | P.PCN ---
Description of Procedure: Preop diagnosis is acute kidney injury with high BUN/creatinine Postop same Procedure ultrasound-guided triple-lumen dialysis catheter placed right femoral approach ultrasound-guided right groin was prepped and draped in Prestel manner. 1% lidocaine were infiltrated in the groin area. Micropuncture introduced right femoral vein micropuncture guide was passed. 4 [place] dilator advanced up the guidewire. We passed the regular guidewire without any resistance guidewire was passed and dilators were advanced up the guidewire and then replaced triple- lumen dialysis catheter guide was removed flushed heparin saline hep-locked secured with 3-0 nylon patient tarted the procedure well
[2024-01-19] MEDS: DEXMEDETOMIDINE/0.9% NACL(PMX) 400 MCG in EMPTY BAG 1 BAG IV SCH (16:34)
[2024-01-19] MEDS: VASOPRESSIN 60 UNIT in SODIUM CHLORIDE 0.9% 150 ML IV SCH (17:14)
[2024-01-19] MEDS: NOREPINEPHRINE 4 MG in SODIUM CHLORIDE 0.9% 250 ML IV SCH (19:48)
[2024-01-19] MEDS: HYDROCORTISONE SUCCINATE 100 MG/2 ML VIAL IV STA (20:27)
[2024-01-19] MEDS: CISATRACURIUM 2 MG/ML 5 ML VIAL IV ONE ×2 (20:33)
[2024-01-19] MEDS: SODIUM CHLORIDE 0.9% 1,000 ML IV ONE (20:34)
--- NOTE | 2024-01-19 21:00 | XR ---
EXAMINATION TYPE: XR chest 1V portable DATE OF EXAM: 01/19/2024 8:52 PM CLINICAL INDICATION:Female, 63 years old with history of Tube placement; [facility] COMPARISON: Chest radiographs from 01/19/2024 TECHNIQUE: XR chest 1V portable Frontal view of the chest. FINDINGS: Lungs/Pleura: There is no evidence of pleural effusion, focal consolidation, or pneumothorax. Pulmonary vascularity: Unremarkable. Heart/mediastinum: Cardiomediastinal silhouette is unremarkable. Musculoskeletal: No acute osseous pathology. Other findings: None Lines/Tubes: Endotracheal tube with distal tip 4.9 cm above the toan. Nasogastric tube with its distal tip and side-port projecting under the diaphragm. Left central venous catheter with distal tip at the cavoatrial junction. IMPRESSION: 1. Cardiomegaly, pulmonary vascular congestion and bilateral pleural effusions. Correlate with BNP f or congestive heart failure. 2. Support line and tubes in appropriate position.
[2024-01-19 21:47] LABS: ABG HCO3 22 mmol/L (21-25); ABG Oxygen Saturation 88.7 % (94-97); ABG PCO2 55 mmHg (35-45); ABG PH 7.22 (7.35-7.45); ABG PO2 78 mmHg (83-108); Allen Test Performed? Yes
[2024-01-19] MEDS: NOREPINEPHRINE 8 MG in SODIUM CHLORIDE 0.9% 250 ML IV SCH (22:57)
[2024-01-19] MEDS: propofoL 100 ML IV ONE (22:58)
[2024-01-19] MEDS: CHLORHEXIDINE GLUCONATE 15 ML CUP MUCOUS MEM SCH (23:00)
--- NOTE | 2024-01-19 23:07 | PCN ---
PROCEDURE NOTE PROCEDURE PERFORMED: Left subclavian triple-lumen catheter. PREOPERATIVE DIAGNOSIS: Administration of fluids and pressors. POSTOPERATIVE DIAGNOSIS: Administration of fluids and pressors. DONATION SPECIALIST: Dr. Vera. DESCRIPTION OF PROCEDURE: A time-out was completed verifying correct patient, procedure, site, positioning, and implant(s) or special equipment if applicable. The patient's procedure took place in the ICU room 256. The patient was placed in a dependent position appropriate for triple lumen catheter placement based on the vein to be cannulated. The patient's left shoulder was prepped and draped in sterile fashion. 1% Lidocaine was used to anesthetize the surrounding skin area. A triple lumen 9F Cordis catheter was introduced into the left subclavian vein using Seldinger technique. The catheter was threaded smoothly over the guide wire and appropriate blood return was obtained. Each lumen of the catheter was evacuated of air and flushed with sterile saline. The catheter was then sutured in place to the skin and a sterile dressing applied. Perfusion to the extremity distal to the point of catheter insertion was checked and found to be adequate. There were no immediate complications. There was good blood return from all 3 ports. The catheter was sutured in place. A sterile dressing was applied by the nurse. The tip of catheter was seen at the junction of superior vena cava and right atrium. MMODL / IJN: [id number] /
[2024-01-19 23:16] VITALS: BP 84/56
--- NOTE | 2024-01-20 00:18 | PN ---
PROGRESS NOTE DATE OF SERVICE: 01/19/2024 CHIEF COMPLAINT: Acute renal failure and delirium. HISTORY OF PRESENT ILLNESS: This lady is just about the same. She remains semiconscious and delirious. Numbers are just about the same. She has been seen by Nephrology and they are considering dialysis. Numbers are slightly improved, but renal function is not significantly changed. REVIEW OF SYSTEMS: Cannot be obtained. PHYSICAL EXAMINATION: VITAL SIGNS: Blood pressure is adequate. HEENT: Head, ears, eyes, nose, mouth, and throat are normal. CHEST: Clear. CARDIAC: Sinus. ABDOMEN: Soft, nontender. IMPRESSION: 1. Acute kidney injury. 2. Delirium. 3. History of chronic obstructive pulmonary disease. 4. Hyperkalemia. 5. Hypocalcemia. PLAN: Continue monitoring in ICU. Awaiting for further recommendations from Nephrology. MMODL / IJN: [id number] /
[2024-01-20] MEDS: NOREPINEPHRINE 32 MG in SODIUM CHLORIDE 0.9% 218 ML IV SCH (01:04)
[2024-01-20 01:15] VITALS: TEMP 98.3
[2024-01-20] MEDS ORDERED: EPINEPHrine 10 ML SYRINGE (0.1 MG/ML) ONE (01:59)
[2024-01-20] MEDS ORDERED: DEXTROSE 50% SYRINGE 50 ML IVP ONE (01:59)
--- NOTE | 2024-01-20 02:06 | HP ---
HISTORY AND PHYSICAL CHIEF COMPLAINT: Diarrhea for 2 days, delirium, confusion, and acute kidney injury. HISTORY OF PRESENT ILLNESS: First known admission for this 63-year-old white female, patient was just in the office yesterday. 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 At that time, she stated that she had some diarrhea, but she was otherwise doing well and having no problems. Treatment was prescribed. She came in the emergency room the next day, delirious in stating that she had been having diarrhea. In the emergency room, she had dramatic numbers suggesting at least acute kidney injury. She had a potassium of 7.3 with a BUN of 225 and a creatinine of 6.08. GFR was only 6. White count was 18,100. Calcium was low at 6.4. She under EKGs. She had tall peaked T-waves. Echocardiogram results demonstrated EF of 19.8. She had a white count of 23,700. She had a white count on repeat of 22,300. REVIEW OF SYSTEMS: Unobtainable. Past medical history, family history, personal and social histories are unobtainable and unremarkable otherwise. She does have a history of hypertension and COPD as well as type 2 diabetes. PHYSICAL EXAMINATION: VITAL SIGNS: Blood pressure was 62/34. HEENT: Head, ears, eyes, nose, mouth, and throat were unremarkable, but she was delirious and confused. CHEST: Clear. CARDIAC: Normal sinus rhythm. ABDOMEN: Soft and nontender without any masses or visceromegaly. Bowel sounds are present. EXTREMITIES: Normal. NEUROLOGICAL: She had no focal or lateralizing signs and she was confused. DIAGNOSES: She is admitted to the hospital with diagnoses, 1. Acute kidney injury. 2. Dehydration. 3. Hypocalcemia. 4. Hyperkalemia. 5. Reduced ejection fraction. PLAN: 1. Bedrest. 2. ICU management. 3. Consult with cylinder valve repairer. 4. Consult with Cardiology. MMODL / IJN: [id number] /
[2024-01-20 02:08] LABS: Glucose,Whole Blood 60 mg/dL (70-110)
[2024-01-20 03:01] VITALS: PULSE 73; RESP 24
[2024-01-20 03:22] LABS: Hepatitis B Surface Antigen Nonreactive (Nonreactive)
--- NOTE | 2024-01-20 03:36 | P.EN ---
FLORIDALMA pagan note CPR initiated following ACLS protocol , patient had pulseless Vtach , was shocked once, give Epi , Bicarb, Dextrose, then she was in asystole , however, it was noted that she had large amount of blood coming out of her et tube making ventilation ineffective despite suctioning . patient . family notified please refer to paper form of floridalma pagan for full details and record
[2024-01-20] MEDS ORDERED: HYDROCORTISONE SUCCINATE 100 MG/2 ML VIAL IV SCH (06:00)
--- NOTE | 2024-01-20 07:24 | PCN ---
PROCEDURE NOTE PROCEDURE PERFORMED: Right brachial arterial line. PREOPERATIVE DIAGNOSIS: Frequent blood draws and blood gas monitoring. POSTOPERATIVE DIAGNOSIS: Frequent blood draws and blood gas monitoring. POCKETBOOK MAKER: Dr. Vera. DESCRIPTION OF PROCEDURE: There was informed consent and universal timeout. The patient's procedure took place in room 256. ARTERIAL LINE PLACEMENT: Indications: Hemodynamic monitoring. A time-out was completed verifying correct patient, procedure, site, positioning, and implant(s) or special equipment if applicable. Juan's test was performed to ensure adequate perfusion. The patient's right wrist was prepped and draped in sterile fashion. 1% Lidocaine was used to anesthetize the area. An 18G Arrow arterial line was introduced into the brachial artery. The catheter was threaded over the guide wire and the needle was removed with appropriate pulsatile blood return. Blood loss was minimal. The catheter was then sutured in place to the skin and a sterile dressing applied. Perfusion to the extremity distal to the point of catheter insertion was checked and found to be adequate. There was good waveform and blood pressure reading. The catheter was sutured in place. A sterile dressing was applied by the nurse. There was no immediate complication. The patient tolerated the procedure well without difficulty. MMODL / IJN: [id number] /
[2024-01-20 08:28] LABS: Hepatitis B Surface AB- Quant 3.5 mIU/mL
--- NOTE | 2024-01-20 22:55 | DS ---
DISCHARGE SUMMARY DATE OF : 01/20/2024 CHIEF COMPLAINT: Diarrhea, dehydration, acute kidney injury, and delirium. HISTORY OF PRESENT ILLNESS AND PHYSICAL EXAMINATION: Details of this lady's history and physical can be found in the initial workup. LABORATORY STUDIES: While she was in the hospital, she had laboratory studies, details of which can be found in the laboratory section of her chart. COURSE IN THE HOSPITAL: After admission, she was placed on bedrest, started on intravenous fluids with an effort to correct her electrolyte balance. She was seen by Nephrology. Decision initially was to hold off on dialysis. She arrested and then early in the morning of the . FINAL DIAGNOSES: 1. Acute kidney injury. 2. Dehydration. 3. Delirium. 4. History of hypertension. 5. History of chronic obstructive pulmonary disease. 6. Hyperkalemia. OPERATIONS: None. CONSULTATIONS: Intensive Medicine and Nephrology. MMARTL / KONSTANTIN: [id number] /
--- NOTE | 2024-01-21 01:16 | HP ---
HISTORY AND PHYSICAL CHIEF COMPLAINT: Diarrhea, delirium, dehydration, and acute kidney disease. HISTORY OF PRESENT ILLNESS: This is first known admission for this 63-year-old female. She had just been in the office the day before coming in and seemed to be doing well. She had complained of having some nausea, and diarrhea, but nothing out of the ordinary. At that time, vital signs are normal. She was discharged and then came in to the emergency room on the day of admission, delirious, and nearly moribund. BUN and creatinine were markedly elevated with a potassium of 7.6. pH was 7. REVIEW OF SYSTEMS: Cannot be obtained. Remainder of her history is taken from her hospital records. She cannot take LESLIE inhibitors. MEDICATIONS: She has been on, 1. Wellbutrin. 2. Ropinirole. 3. Amlodipine. 4. Aldactazide. 5. Allopurinol. 6. Atorvastatin. 7. Lasix. 8. Metoprolol. 9. DuoNeb updrafts. 10.Symbicort. 11.Metformin. 12.Montelukast. 13. . SOCIAL HISTORY: She is not a drinker, but does smoke on a daily basis. PHYSICAL EXAMINATION: VITAL SIGNS: Blood pressure was 95/64 with pulse of 112. She was tachypneic. She was very lethargic. HEENT: Head, ears, eyes, nose, and mouth appeared to be normal except for dehydration. NECK: Supple. CHEST: Clear. CARDIAC: Demonstrates sinus tachycardia with no murmurs or extra sounds. ABDOMEN: Soft, nontender. EXTREMITIES: Normal. NEUROLOGICAL: She was lethargic and confused. DIAGNOSES: She has been in the hospital with diagnoses, 1. Acute kidney injury. 2. Dehydration. 3. Episodes of diarrhea. 4. History of hypertension. 5. Chronic obstructive pulmonary disease. 6. Major depression. PLAN: 1. Bed rest and in ICU. 2. Consult with Nephrology and Intensive Medicine. MMODL / IJN: [id number] /
--- NOTE | 2024-01-22 11:22 | PCN ---
PROCEDURE NOTE PROCEDURE PERFORMED: Right brachial arterial line. PREOPERATIVE DIAGNOSIS: Frequent blood draws and blood gas monitoring. POSTOPERATIVE DIAGNOSIS: Frequent blood draws and blood gas monitoring. SHEET METAL FORMER: Dr. Vera. DESCRIPTION OF PROCEDURE: I have discussed the risks, benefits and alternative therapies for the above-mentioned procedure and for both sedation/analgesia as well as necessary blood product administration, if indicated, as they pertain to this patient. The patient has indicated his or her understanding and acceptance of the risks and procedures discussed. ARTERIAL LINE PLACEMENT: Indications: Hemodynamic monitoring. A time-out was completed verifying correct patient, procedure, site, positioning, and implant(s) or special equipment if applicable. The patient's procedure took place in room 256. The patient's right arm was prepped and draped in sterile fashion. 1% Lidocaine was used to anesthetize the area. An 18G Arrow arterial line was introduced into the brachial artery. The catheter was threaded over the guide wire and the needle was removed with appropriate pulsatile blood return. There was good waveform. Blood loss was minimal. The catheter was then sutured in place to the skin and a sterile dressing applied by the nurse. Perfusion to the extremity distal to the point of catheter insertion was checked and found to be adequate. The patient tolerated the procedure well and there were no immediate complications. MMODL / IJN: [id number] /
--- NOTE | 2024-01-25 12:31 | CDI ---
Documentation Clarification Form Date: 01/25/2024 11:36:30 AM From: Mary Irby RN, CCDS Phone: [phone] Admit Date: 01/18/2024 07:13:00 PM Patient Name: Cata Car Visit Number: [id number] Discharge Date: 01/20/2024 05:33:00 AM ATTENTION: The Clinical Documentation Specialists (CDI) and [facility] Coding Staff appreciate your assistance in clarifying documentation. Please respond to the clarification below the line at the bottom and electronically sign. The CDI & [facility] Coding staff will review the response and follow-up if needed. Please note: Queries are made part of the Legal Health Record. If you have any questions, please contact the author of this message via ITS. Dr. Dario Vera The patient was intubated and placed on mechanical ventilation. Based on this information and the findings below, is there an additional diagnosis that is clinically appropriate for this patient? History/Risk Factors: 63-year-old female with a history of diabetes mellitus, hypertension, COPD, chronic tobacco dependence, gout, hyperlipidemia, and anxiety. She presented with a 2 to 3-day history of diarrhea and dehydration, and was noted to have acute renal failure. Tobacco use: former smoker Clinical Indicators: 01/18 Hemodialysis nurse: "patient respirations increased and BP low with Levophed running. Intubation to take place at bedside. Patient's blood returned and dialysis stopped." 01/18 @18:28 ICU nurse: "Dr. Vera notified that patient does not look good, color is off, notified of current drip rates, ABG has been attempted without success. Concern for patient expressed, RN states she thinks patient might need to be intubated. Per Dr. Vera put Bipap first. RT notified." 01/18 @19:37 ICU nurse: "Levophed quickly titrated to 0.85mcg/kg/min at this time due to low blood pressures, pt not tolerating dialysis, pt sun in color, RR in the 30's, Precedex paused. Dr. Vera made aware, states to intubate patient, gave vent settings AC, 20, 350, 100% and 5. RN request Dr. Vera to come and line the patient, states he is on the way and to have 10mg of Nimbex at the bedside." 01/18 Vital signs: RR high of 38-40 01/18 @15:45 Pulse oximetry: 81%; @17:45 80% 01/18 Lung/Breathing assessment: short of breath 01/18 ABG: pH 7.22, pO2 78, pCO2 55 Treatment: Dialysis stopped Continuous Pulse ox; yes O2/Vent/BiPap: 2LNC then Bipap then intubation with mechanical ventilation Is there an additional diagnosis/diagnoses that is clinically appropriate for this patient? [ ] Acute Hypoxic Respiratory Failure [ X] Acute Hypercapnic Respiratory Failure [ ] Other Diagnosis, please specify [ ] Unable to determine MTDD
--- NOTE | 2024-01-25 13:28 | CDI ---
Documentation Clarification Form Date: 01/25/2024 01:09:44 PM From: Mary Irby RN, CCDS Phone: [phone] Admit Date: 01/18/2024 07:13:00 PM Patient Name: Cata Car Visit Number: [id number] Discharge Date: 01/20/2024 05:33:00 AM ATTENTION: The Clinical Documentation Specialists (CDI) and [facility] Coding Staff appreciate your assistance in clarifying documentation. Please respond to the clarification below the line at the bottom and electronically sign. The CDI & [facility] Coding staff will review the response and follow-up if needed. Please note: Queries are made part of the Legal Health Record. If you have any questions, please contact the author of this message via ITS. Dr. Dario Vera The patient was receiving IV Levophed. Please clarify what condition/diagnosis was being treated. History/Risk Factors: 63-year-old female with a history of diabetes mellitus, hypertension, COPD, chronic tobacco dependence, gout, hyperlipidemia, and anxiety. She presented with a 2 to 3-day history of diarrhea and dehydration and was noted to have acute renal failure. Clinical indicators: 01/18 @19:37 ICU nurse: "Levophed quickly titrated to 0.85mcg/kg/min at this time due to low blood pressures, patient not tolerating dialysis, patient sun in color, RR in the 30's, Precedex paused. Dr. Vera made aware states to intubate patient, gave vent settings AC, 20, 350, 100% and 5. RN request Dr. Vera to come and line the patient, states he is on the way and to have 10mg of Nimbex at the bedside." 01/19 Procedure note: "CPR initiated following ACLS protocol, patient had pulseless Vtach, was shocked once, given Epi, Bicarb, Dextrose, then she was in asystole. It was noted that she had large amount of blood coming out of her ET tube making ventilation ineffective despite suctioning." 01/18 Arterial BP's: 91/51-77/38-61/41-89/54 01/19 Arterial BP's: 81/55-68/48-61/42-52/33 Treatment: IV Norepinephrine titrated 01/17-01/19; IV Vasopressin titrated 01/18; 0.9 NS IV bolus x3 01/17-01/18 What diagnosis were you treating with IV Vasopressors? [ ] Hypovolemic shock [ ] Hemorrhagic shock [ ] Other Shock, please specify [ ] Other diagnosis, please specify [ x] Unable to determine MTDD
--- NOTE | 2024-01-25 13:57 | CDI ---
Documentation Clarification Form Date: 01/25/2024 01:36:35 PM From: Mary Irby RN, CCDS Phone: [phone] Admit Date: 01/18/2024 07:13:00 PM Patient Name: Cata Car Visit Number: [id number] Discharge Date: 01/20/2024 05:33:00 AM ATTENTION: The Clinical Documentation Specialists (CDI) and [facility] Coding Staff appreciate your assistance in clarifying documentation. Please respond to the clarification below the line at the bottom and electronically sign. The CDI & [facility] Coding staff will review the response and follow-up if needed. Please note: Queries are made part of the Legal Health Record. If you have any questions, please contact the author of this message via ITS. Dr. Ronni Roche Your patient had confusion and delirium. Additional clarification is requested. History/Risk Factors: 63-year-old female with a history of diabetes mellitus, hypertension, COPD, chronic tobacco dependence, gout, hyperlipidemia, and anxiety. She presented with a 2 to 3-day history of diarrhea and dehydration and was noted to have acute renal failure. Clinical Indicators: H&P: "Diarrhea for 2 days, delirium, confusion, and acute kidney injury." 01/18 Hemodialysis nurse: "patient respirations increased and BP low with Levophed running. Intubation to take place at bedside. Patient's blood returned and dialysis stopped." 01/18 Surgery consult: "Patient has a high BUN and creatinine and potassium. Patient is very restless." 01/19 Discharge summary: "Diarrhea for 2 days, delirium, confusion, and acute kidney injury." 01/17-01/18 Cr 7.05-6.10-6.08-5.66-5.18-4.92 01/18 Vital signs: RR high of 38-40 01/18 @15:45 Pulse oximetry: 81%; @17:45 80% 01/18 Lung/Breathing assessment: short of breath 01/18 ABG: pH 7.22, pO2 78, pCO2 55 01/18 Arterial BP's: 91/51-77/38-61/41-89/54 01/19 Arterial BP's: 81/55-68/48-61/42-52/33 Treatment: initiation of dialysis; intubation and mechanical ventilation; attempt resuscitation for cardiac arrest; IV Norepinephrine titrated 01/17-01/19; IV Vasopressin titrated 01/18; 0.9 NS IV bolus x3 01/17-01/18 Please clarify if there is an additional diagnosis: [ ] Metabolic encephalopathy due to acute renal failure [ ] Other condition (please specify) [ ] Unable to determine MTDD
--- NOTE | 2024-03-25 01:10 | MISC ---
MISCELLANOUS REPORT Metabolic encephalopathy due to acute renal failure. MMODL / IJN: [id number] /
== END 2024-01-20 05:33 | disposition expired | DRG 682 ==
LOC: EC 16:23 → 2SICU 19:13
PROVIDERS: ADMIT Family Medicine; ATTEND Family Medicine
PROC: 03HY32Z Insertion of Monitoring Device into Upper Artery, Percutaneous Approach (ICD-10-PCS; 2024-01-19)
PROC: 4A133B1 Monitoring of Arterial Pressure, Peripheral, Percutaneous Approach (ICD-10-PCS; 2024-01-19)
PROC: 4A133J1 Monitoring of Arterial Pulse, Peripheral, Percutaneous Approach (ICD-10-PCS; 2024-01-19)
PROC: 06HY33Z Insertion of Infusion Device into Lower Vein, Percutaneous Approach (ICD-10-PCS; 2024-01-19)
PROC: 0BH18EZ Insertion of Endotracheal Airway into Trachea, Via Natural or Artificial Opening Endoscopic (ICD-10-PCS; 2024-01-19)
PROC: 5A1935Z Respiratory Ventilation, Less than 24 Consecutive Hours (ICD-10-PCS; 2024-01-19)
PROC: 5A1D70Z Performance of Urinary Filtration, Intermittent, Less than 6 Hours Per Day (ICD-10-PCS; 2024-01-19)
PROC: 5A09357 Assistance with Respiratory Ventilation, Less than 24 Consecutive Hours, Continuous Positive Airway Pressure (ICD-10-PCS; 2024-01-19)
PROC: 02HV33Z Insertion of Infusion Device into Superior Vena Cava, Percutaneous Approach (ICD-10-PCS; principal; 2024-01-20)
PROC: 3E043XZ Introduction of Vasopressor into Central Vein, Percutaneous Approach (ICD-10-PCS; 2024-01-20)
PROC: 5A12012 Performance of Cardiac Output, Single, Manual (ICD-10-PCS; 2024-01-20)
PROC: 03HY32Z Insertion of Monitoring Device into Upper Artery, Percutaneous Approach (ICD-10-PCS; 2024-01-20)
PROC: 4A133B1 Monitoring of Arterial Pressure, Peripheral, Percutaneous Approach (ICD-10-PCS; 2024-01-20)
PROC: 4A133J1 Monitoring of Arterial Pulse, Peripheral, Percutaneous Approach (ICD-10-PCS; 2024-01-20)
DX: N17.0 Acute kidney failure with tubular necrosis (principal); G93.41 Metabolic encephalopathy; J96.02 Acute respiratory failure with hypercapnia; E87.21 Acute metabolic acidosis; I47.20 Ventricular tachycardia, unspecified; I50.22 Chronic systolic (congestive) heart failure; I45.89 Other specified conduction disorders; F05 Delirium due to known physiological condition; J44.9 Chronic obstructive pulmonary disease, unspecified; I11.0 Hypertensive heart disease with heart failure; E11.9 Type 2 diabetes mellitus without complications; I46.8 Cardiac arrest due to other underlying condition; E83.51 Hypocalcemia; I95.89 Other hypotension; F32.9 Major depressive disorder, single episode, unspecified; E86.0 Dehydration; E87.5 Hyperkalemia; F17.210 Nicotine dependence, cigarettes, uncomplicated; R19.7 Diarrhea, unspecified; R29.810 Facial weakness; M10.9 Gout, unspecified; E78.5 Hyperlipidemia, unspecified; E86.1 Hypovolemia; T39.395A Adverse effect of other nonsteroidal anti-inflammatory drugs [NSAID], initial encounter; Z79.84 Long term (current) use of oral hypoglycemic drugs; Z79.899 Other long term (current) drug therapy; Z79.51 Long term (current) use of inhaled steroids; Z88.8 Allergy status to other drugs, medicaments and biological substances
CPT/HCPCS: 36415; 71045; 76770; 80048; 80053; 80306; 81001; 82805; 83605; 83735; 85025; 85610; 85730; 86706; 87040; 87070; 87077; 87186; 87205; 87324; 87340; 90935; 92950; 93005; 93306; 94002; 94003; 94640; 94660; 96361; 96374; 96375; 99291